=== PATIENT | male | born 1955 | race Hispanic/Latino ===

== ENCOUNTER 2018-06-16 18:45 | Inpatient (IN) | payer MEDICARE ==
[2018-06-16] MEDS ORDERED: Sodium Chloride 0.9% 1,000 ML IV STA ×2 (19:34→23:04)
[2018-06-16] MEDS ORDERED: Morphine 4 MG/ML VIAL IVP STA (19:36)
[2018-06-16] MEDS ORDERED: Morphine 4 MG/ML VIAL ONE (19:44)
--- NOTE | 2018-06-16 20:08 | ED PDOC ---
HPI: Abdomen Time Seen by Provider: 06/16/18 18:58 Chief Complaint (Nursing): Abdominal Pain Chief Complaint (Provider): Abdominal Pain History Per: Patient History/Exam Limitations: no limitations Onset/Duration Of Symptoms: Days Current Symptoms Are (Timing): Still Present Additional Complaint(s): 63 y/o male with a PMHx of a CVA, CAD with CABG, HTN, Hypercholesterolemia and Prostrate Cancer presents to the ED for evaluation of abdominal pain s/p prostrate resection 8 days ago. Patient was discharged from [facility] three days ago and has since been unable to tolerate food or fluid by the mouth. Patient states he is unable to take his medications because they come up when he vomits. Patient does report of having very liquid bowel movements. Otherwise, patient denies hematemesis, bilious vomiting as well as bloody or black stools. Patient reports abdominal pain is diffuse and associated with subjective chills. Patient denies fever. Patient additionally reports that urine appears orange in color with no gross blood. Patient notes of having a coronel catheter in place. History partially obtained from his friend due to patient's chronic aphasia secondary to stroke. PMD: Valdez Espinosa Past Medical History Reviewed: Historical Data, Nursing Documentation, Vital Signs Vital Signs: Last Vital Signs Temp 98.2 F 06/16/18 18:54 Pulse 127 H 06/16/18 18:54 Resp BP 147/91 H 06/16/18 18:54 Pulse Ox 95 06/16/18 18:54 - Medical History PMH: Benign Prostatic Hyperplasia, HTN, Hypercholesterolemia, Kidney Stones, Chronic Kidney Disease - Surgical History Surgical History: CABG - Family History Family History: States: No Known Family Hx - Home Medications Home Medications: Ambulatory Orders Medication Instructions Recorded Alfuzosin HCl [Alfuzosin HCl ER] 10 mg PO DAILY 06/16/18 Aspirin [Adult Low Dose Aspirin EC] 81 mg PO DAILY 06/16/18 Atorvastatin [Lipitor] 40 mg PO DAILY 06/16/18 Cholecalciferol [Vitamin D 1000 IU] 1,000 mg PO DAILY 06/16/18 Docusate Sodium [Loo' 100 mg PO DAILY 06/16/18 Laxative] Enalapril Maleate [Vasotec] 2.5 mg PO BID 06/16/18 Famotidine [Pepcid] 20 mg PO BID 06/16/18 Folic Acid 1 mg PO DAILY 06/16/18 Ibuprofen [Motrin Tab] 800 mg PO Q8 PRN 06/16/18 Oxybutynin [Ditropan Tab] 5 mg PO TID 06/16/18 Oxycodone HCl/Acetaminophen 1 tab PO Q6 PRN 06/16/18 [Endocet 10-325 mg Tablet] Sulfamethoxazole/Trimethoprim 1 tab PO Q12 06/16/18 [Sulfamethoxazole-Tmp Ss Tablet] Tamsulosin [Flomax] 0.4 mg PO DAILY 06/16/18 levETIRAcetam [Keppra] 500 mg PO BID 06/16/18 - Allergies Allergies/Adverse Reactions: Allergies Allergy/AdvReac Type Severity Reaction Status Date / Time No Known Allergies Allergy Verified 11/23/17 23:09 Review of Systems ROS Statement: Except As Marked, All Systems Reviewed And Found Negative (as per HPI) Constitutional: Positive for: Chills. Negative for: Fever Gastrointestinal: Positive for: Vomiting, Abdominal Pain, Diarrhea (very liquid bowel movements), Other (decreased PO intake). Negative for: Melena, Hematochezia, Hematemesis Genitourinary Male: Positive for: Other (orange coloroed urine ). Negative for: Hematuria Physical Exam - Reviewed Nursing Documentation Reviewed: Yes Vital Signs Reviewed: Yes - Physical Exam Appears: Positive for: In Acute Distress (in mild painful distress) Head Exam: Positive for: ATRAUMATIC, NORMOCEPHALIC Skin: Positive for: Warm, Dry Eye Exam: Positive for: EOMI, PERRL ENT: Positive for: Other (dry mucous membrane) Neck: Positive for: Painless ROM, Supple Cardiovascular/Chest: Positive for: Tachycardia (with regular rhythm) Respiratory: Positive for: Normal Breath Sounds. Negative for: Respiratory Distress Gastrointestinal/Abdominal: Positive for: Soft, Tenderness (nonlocalized diffuse pain), Mass, Other (surgical wounds to abdomen are intact with no erythema, no purulent discharge or signs of infection. Dressing in place in the LLQ where according to the patient there was a drain that had been removed. ) Back: Positive for: Normal Inspection. Negative for: Muscle Spasm Extremity: Positive for: Normal ROM. Negative for: Deformity Lymphatic: Negative for: Adenopathy Neurological/Psych: Positive for: Awake, Alert, Oriented (x3), Other (mild expressive aphasia) - Laboratory Results Result Diagrams: 06/18/18 04:35 06/18/18 04:35 - ECG O2 Sat by Pulse Oximetry: 95 (RA) Pulse Ox Interpretation: Normal Medical Decision Making Medical Decision Making: Time: 1933 Impression: Abdominal pain post-op prostrate resection Differentials include but not limited to obstruction, interabdominal abscess, gastroenteritis, dehydration, electrolyte abnormality and sepsis Plan: -- Type and Screen -- VBG -- CT Abd/Pelvis IV Contrast ONLY -- EKG -- CMP -- Lipase -- CBC with Differentials -- PTT -- Prothrombin Time -- Morphine 4 mg IVP -- Sodium Chloride IV 1000 mls/hr -- Zofran Inj 4 mg IVP -- Blood Culture -- Urine Culture -- IV Insertion -- Urinalysis Name: NIKOLAS ARIAS Exam Date: Jun 16, 2018 9:37:02 PM EDT Modality Type: CT\ Description: CT - ABDOMEN AND PELVIS Gender: M Laterality: Not applicable : 53 Referring Physician: Emergency Room direct number CT of the abdomen and pelvis with contrast Clinical statement: vomiting. Technique: Multiple axial CT images were obtained from the base of the lungs through the floor of the pelvis utilizing 5 mm axial slices after administration of nonionic intravenous contrast. Coronal and sagittal reconstructions were also obtained. Comparison: None. Findings: Chest: There is a suspected filling defect within the right main pulmonary artery extending into the right lower lobe sentimental pulmonary arteries. There is a small right-sided pleural effusion. There are infiltrates noted in the lower lungs bilaterally. Abdomen: The spleen, pancreas, kidneys, and adrenal glands are unremarkable. There are left parapelvic renal cysts. Innumerable small low attenuation lesions are seen throughout the liver, too small to characterize but likely represent small cysts. Several gallstones are seen within a distended gallbladder. There is gallbladder wall thickening measuring up to 5 mm. Trace pericholecystic free fluid is noted. There is no evidence of biliary ductal dilatation. The aorta is within normal limits. There is no evidence of abdominal lymphadenopathy. There is a small amount of ascites around the spleen. Pelvis: The bowel is unremarkable, with no obstructive or inflammatory changes. The appendix is normal. The urinary bladder is catheterized and contracted. The other pelvic structures appear grossly intact. There is no evidence of pelvic lymphadenopathy or ascites. Bones: There are no suspicious osseous abnormalities seen. Impression: 1. Cholelithiasis with suspected gallbladder wall thickening and trace pericholecystic free fluid. No evidence of biliary ductal dilatation. The findings could represent early acute cholecystitis. Ultrasound would be recommended for further evaluation. 2. Filling defect within the right main pulmonary, extending into the segmental branches of the right lower lobe. This study is not ideal for evaluation of the pulmonary arteries, but pulmonary embolism cannot be excluded. If there is further clinical concern, CT angiogram of the chest would be recommended for further evaluation. 3. Small right-sided pleural effusion. Bilateral lower lobe infiltrates. 4. Numerous low attenuation lesions of the liver, likely representing cysts. 5. Left renal parapelvic cysts. 6. Small amount of ascites in the upper abdomen. 7. No obstructive or inflammatory bowel changes. Electronically signed on Jun 16, 2018 11:16:01 PM EDT by: Quinn Jara M.D., JONE Certified By [facility] Fellowship Trained MRI and CT Specialist DW Dr Isidro Hospitalist, admitting for pt's PMD Dr Espinosa Pt to be hospitalized to his service. Discussed need for imaging to evaluate for pulmonary embolism. Unfortunately pt already received iodine load and will need to clear current IV load prior to CT angio. Pt will be treated with anticoagulants and place on telemetry. At this time patient is no hypoxic or in respiratory distress. Further management endorsed to Dr Isidro. Scribe Attestation: Documented by Virgilio Mathews, acting as a scribe Ileana Mansfield MD. Provider Scribe Attestation: All medical record entries made by the Scribe were at my direction and p ersonally dictated by me. I have reviewed the chart and agree that the record accurately reflects my personal performance of the history, physical exam, medical decision making, and the department course for this patient. I have also personally directed, reviewed, and agree with the discharge instructions and disposition. Disposition - Clinical Impression Clinical Impression: Small pleural effusion, Abdominal pain, Cholelithiasis - Disposition Disposition Time: 23:00 Condition: GUARDED - Pt Status Changed To: Hospital Disposition Of: Inpatient - Admit Certification Admit to Inpatient:: After my assessment, the patient will require hospitalization for at least two midnights. This is because of the severity of symptoms shown, intensity of services needed, and/or the medical risk in this patient being treated as an outpatient. - POA Present On Arrival: Deep Vein Thrombosis / PE
[2018-06-16 20:14] LABS: BASO # 0.1 K/uL (0.0-0.2); BASO % 0.3 % (0.0-2.0); EOS % 0.2 % (0.0-4.0); HEMOGLOBIN 12.1 g/dL (12.0-18.0); LYMPH # 0.8 K/uL (1.0-4.3); LYMPH % 4.5 % (20.0-40.0); MEAN CELL VOLUME 94.6 fl (80.0-94.0); MEAN CORPUSCULAR HEMOGLOBIN 30.9 pg (27.0-31.0); MEAN CORPUSCULAR HGB CONC 32.7 g/dL (33.0-37.0); MEAN PLATELET VOLUME 10.4 fl (7.2-11.7); MONO # 1.3 K/uL (0.0-0.8); NEUT # 16.2 K/uL (1.8-7.0); NRBC % 0.1 % (0.0-0.0); PLATELET COUNT 204 K/uL (130-400); RBC 3.91 Mil/uL (4.40-5.90); RED CELL DISTRIBUTION WIDTH 13.2 % (11.5-14.5); WHITE BLOOD COUNT 18.4 K/uL (4.8-10.8)
[2018-06-16 20:18] LABS: VENOUS BLOOD GAS BASE EXCESS 2.2 mmol/L (0.0-2.0); VENOUS BLOOD GAS PCO2 33 mmHg (40-60); VENOUS BLOOD GAS PO2 29 mm/Hg (30-55); VENOUS BLOOD PH 7.49 (7.32-7.43)
[2018-06-16 20:24] LABS: ALB/GLOB RATIO 1.1 (1.0-2.1); ALBUMIN 3.5 g/dL (3.5-5.0); ALT/SGPT 194 U/L (21-72); AST/SGOT 184 U/L (17-59); BLOOD UREA NITROGEN 22 mg/dl (9-20); CALCIUM 9.1 mg/dL (8.4-10.2); GFR NON-AFRICAN AMERICAN > 60; LIPASE 125 U/L (23-300)
[2018-06-16 20:31] LABS: INR 1.4; PROTHROMBIN TIME 15.4 Seconds (9.8-13.1)
[2018-06-16] MEDS ORDERED: Ciprofloxacin 400mg/200ml D5W 400 MG/200 ML BAG IV STA (20:31)
[2018-06-16 20:34] LABS: PARTIAL THROMBOPLASTIN TIME 30.8 Seconds (25.6-37.1)
[2018-06-16] MEDS ORDERED: Ciprofloxacin 400mg/200ml D5W 400 MG/200 ML BAG IVPB ONE (20:34)
[2018-06-16] MEDS ORDERED: Iohexol 300 100 ML IJ ONE (20:51)
[2018-06-16 20:52] LABS: URINE AMORPHOUS SEDIMENT RARE /ul (<OCC); URINE BILIRUBIN NEGATIVE (NEGATIVE); URINE BLOOD LARGE (NEGATIVE); URINE CLARITY CLOUDY (Clear); URINE COLOR AMBER (YELLOW); URINE GLUCOSE (UA) NEG (NEGATIVE); URINE LEUKOCYTE ESTERASE MOD Leu/uL (Negative); URINE PROTEIN 100 mg/dL (NEGATIVE); URINE UROBILINOGEN 0.2-1.0 mg/dL (0.2-1.0)
[2018-06-16] MEDS ORDERED: Sodium Chloride 0.9% 50 ML IV ONE (20:52)
[2018-06-16 20:54] LABS: URINE BACTERIA LARGE (<OCC)
[2018-06-16 21:46] LABS: PLATELET ESTIMATE NORMAL (NORMAL)
[2018-06-16 21:47] LABS: LARGE PLATELETS PRESENT
[2018-06-16] MEDS ORDERED: metroNIDAZOLE 500mg/100ml NS 100 ML IV STA (23:21)
--- NOTE | 2018-06-16 23:39 | CP.PCM.HP ---
<Sultan Saeed - Last Filed: 06/17/18 02:00> History of Present Illness - History of Present Illness History of Present Illness: History obtained from patient and review of patients medical record 63 year old Male with PMHx prostate CA s/p prostate resection on 06/06/18 at [facility], CVA with residual expressive aphasia, CAD with CABG, HTN and HLD presents to [facility] ED for evaluation of nausea, vomiting and diffuse abdominal pain since discharge from hospital on 06/10/18. Patient reports he has poor po intake including unable to take medications due to nausea and vomiting. Does report lose BM but denies any watery diarrhea. Patient has a coronel in place since the surgery and was supposed to follow up with urologist on 06/15/13, however did not follow up. Does report chills but denies any fever, hematuria or strong odor. Patient reports being short of breath but denies any cough, chest pain, calf pain or calf swelling. In the ED, patient is tachycardic, afebrile and leukocytosis. CT A/P shows possible cholecystitis, filling defect within the right main pulmonary artery, small right sided pleural effusion and B/L lower lobe infiltrates. RUQ US shows cholelithiasis and acalculus cholecystitis. Patient is admitted for sepsis likely secondary for acute complicated UTI and/or acute cholecystitis, and possible pulmonary embolism. ROS: All 12 systems reviewed and negative except as mentioned above PMHx: CAD s/p CABG, HTN, prostate CA, CVA about 14 yrs ago with residual expressive aphasia, HLD Surgery hx: CABG, Prostate resection Family hx: Father: CAD Social hx: former smoker (20+ packed years smoker), quit 16 years ago. Denies drugs uses. Lives alone and completely independent. Allergies: NKDA Medications: reviewed PMD: Dr. Espinosa Urologist: Dr. Salazar at [facility] ([phone]) Summer Intern: Dr. Vieira ([phone]) Present on Admission - Present on Admission Any Indicators Present on Admission: Yes Urinary Catheter: Yes Review of Systems - Review of Systems All systems: reviewed and no additional remarkable complaints except (except as mentioned in HPI) Past Patient History - Past Social History Smoking Status: Former Smoker - CARDIAC Hx Hypercholesterolemia: Yes Hx Hypertension: Yes - NEUROLOGICAL HX Cerebrovascular Accident: Yes - RENAL Hx Chronic Kidney Disease: Yes Hx Kidney Stones: Yes - GASTROINTESTINAL Hx Gastrointestinal Disorders: Yes Hx Hemorrhoids: Yes - GENITOURINARY/GYNECOLOGICAL Hx Genitourinary Disorders: Yes Hx Prostate Cancer: Yes Hx Prostate Problems: Yes (enlarged prostate) - PSYCHIATRIC Hx Substance Use: No - SURGICAL HISTORY Hx Coronary Artery Bypass Graft: Yes - ANESTHESIA Hx Anesthesia: Yes Hx Anesthesia Reactions: No Meds Allergies/Adverse Reactions: Allergies Allergy/AdvReac Type Severity Reaction Status Date / Time No Known Allergies Allergy Verified 11/23/17 23:09 Physical Exam - Constitutional Appears: Non-toxic, No Acute Distress, Other (gets frustrated at times due to expressive aphasia) - Head Exam Head Exam: NORMAL INSPECTION - Eye Exam Eye Exam: EOMI, Normal appearance, PERRL - Neck Exam Neck exam: Negative for: Meningismus - Respiratory Exam Respiratory Exam: Decreased Breath Sounds (on right lower lung field with +rales;), NORMAL BREATHING PATTERN. absent: Accessory Muscle Use, Wheezes Additional comments: Clear left sided lung field - Cardiovascular Exam Cardiovascular Exam: Tachycardia, REGULAR RHYTHM, +S1, +S2 Additional comments: Mid chest old scar from CABG x2 - GI/Abdominal Exam GI & Abdominal Exam: Distended, Soft, Tenderness (mild diffuse tenderness;). absent: Guarding, Rebound Additional comments: Multiple surgical scars with mild erythema and healing well. No signs of infection. - Exam Additional comments: Coronel catheter in place draining yellow colored urine. - Extremities Exam Extremities exam: Positive for: normal inspection, pedal pulses present. Negative for: calf tenderness, pedal edema Additional comments: No lower extremities swelling. tenderness or erythema. No thigh swelling,erythema or tenderness. - Back Exam Back exam: absent: CVA tenderness (L), CVA tenderness (R) - Neurological Exam Neurological exam: Alert, Oriented x3 Additional comments: expressive aphasia - Psychiatric Exam Additional comments: frustrated at times - Skin Skin Exam: Normal Color Results - Vital Signs Recent Vital Signs: Last Vital Signs Temp 98.2 F 06/16/18 18:54 Pulse 127 H 06/16/18 18:54 Resp BP 147/91 H 06/16/18 18:54 Pulse Ox 95 06/16/18 23:21 - Labs Result Diagrams: 06/16/18 19:57 06/16/18 19:57 Labs: Laboratory Results - last 24 hr 06/16/18 06/16/18 06/16/18 19:57 19:57 19:57 WBC 18.4 H RBC 3.91 L Hgb 12.1 D Hct 37.0 MCV 94.6 H MCH 30.9 MCHC 32.7 L RDW 13.2 Plt Count 204 MPV 10.4 Neut % (Auto) 88.0 H Lymph % (Auto) 4.5 L Sibley % (Auto) 7.0 Eos % (Auto) 0.2 Baso % (Auto) 0.3 Neut # (Auto) 16.2 H Lymph # (Auto) 0.8 L Sibley # (Auto) 1.3 H Eos # (Auto) 0.0 Baso # (Auto) 0.1 Platelet Estimate Normal Large Platelets Present PT 15.4 H INR 1.4 APTT 30.8 pO2 VBG pH VBG pCO2 VBG HCO3 VBG Total CO2 VBG O2 Sat (Calc) VBG Base Excess VBG Potassium Glucose Lactate FiO2 Sodium 144 Potassium 4.3 Chloride 107 Carbon Dioxide 25 Anion Gap 16 BUN 22 H Creatinine 0.8 Est GFR ( Amer) > 60 Est GFR (Non-Af Amer) > 60 Random Glucose 129 H Calcium 9.1 Total Bilirubin 1.8 H AST 184 H D ALT 194 H D Alkaline Phosphatase 97 Total Protein 6.6 Albumin 3.5 Globulin 3.1 Albumin/Globulin Ratio 1.1 Lipase 125 Venous Blood Potassium Urine Color Urine Clarity Urine pH Ur Specific Chauncey Urine Protein Urine Glucose (UA) Urine Ketones Urine Blood Urine Nitrate Urine Bilirubin Urine Urobilinogen Ur Leukocyte Esterase Urine RBC (Auto) Urine Microscopic WBC Amorphous Sediment Urine Bacteria Blood Type Antibody Screen BBK History Checked 06/16/18 06/16/18 06/16/18 19:57 19:57 20:09 WBC RBC Hgb Hct MCV MCH MCHC RDW Plt Count MPV Neut % (Auto) Lymph % (Auto) Sibley % (Auto) Eos % (Auto) Baso % (Auto) Neut # (Auto) Lymph # (Auto) Sibley # (Auto) Eos # (Auto) Baso # (Auto) Platelet Estimate Large Platelets PT INR APTT pO2 29 L VBG pH 7.49 H VBG pCO2 33 L VBG HCO3 25.7 VBG Total CO2 26.1 VBG O2 Sat (Calc) 58.6 VBG Base Excess 2.2 H VBG Potassium 4.4 Glucose 131 H Lactate 1.7 FiO2 21.0 Sodium 142.0 Potassium Chloride 108.0 H Carbon Dioxide Anion Gap BUN Creatinine Est GFR ( Amer) Est GFR (Non-Af Amer) Random Glucose Calcium Total Bilirubin AST ALT Alkaline Phosphatase Total Protein Albumin Globulin Albumin/Globulin Ratio Lipase Venous Blood Potassium 4.4 Urine Color Ronna Urine Clarity Cloudy Urine pH 7.0 Ur Specific Chauncey 1.024 Urine Protein 100 Urine Glucose (UA) Neg Urine Ketones Trace Urine Blood Large Urine Nitrate Negative Urine Bilirubin Negative Urine Urobilinogen 0.2-1.0 Ur Leukocyte Esterase Mod Urine RBC (Auto) 250 H Urine Microscopic WBC 42 H Amorphous Sediment Rare H Urine Bacteria Large Blood Type A POSITIVE Antibody Screen Negative BBK History Checked Patient has bt Assessment & Plan - Assessment and Plan (Free Text) Assessment: 63 year old Male with PMHx prostate CA s/p prostate resection 8 days at [facility], CVA with residual expressive aphasia, CAD with CABG, HTN and HLD presents to [facility] ED for evaluation of nausea, vomiting, diarrhea and diffuse abdominal pain x 3 days. Patient was discharged from [facility] 3 days ago and states since then he has poor po intake due to nausea and vomiting. . In the ED, patient is tachycardic, afebrile and leukocytosis. CT A/P shows possible cholecystitis, filling defect within the right main pulmonary artery, small right sided pleural effusion and B/L lower lobe infiltrates. Patient is admitted for sepsis likely secondary for acute complicated UTI and/or acute cholecystitis, and possible pulmonary embolism. Plan: Sepsis likely secondary to acute complicated UTI and/or acute acalculus cholecystitis -Initial VS in ED: BP 147/91, HR 127, RR 20, pulse ox 95% -Afebrile, tachycardic -Leukocytosis with wbc of 18.4, LA 1.7 on VBG -UA shows moderate LE, large blood, large bacteria -hx prostate resection on 06/06/18 -s/p 1.5 L NS bolus -s/p Cipro and Flagyl in ED -Start Zosyn 3.375 gm q 6hs -Urology consult: patient has coronel in place; f/u recs regarding removal of coronel. -f/u AM labs, blood cx and urine cx Abdominal pain, Nausea and Vomiting likely secondary to acute acalculus cholecystitis -CT A/P shows likely cholecystitis -RUQ US shows cholelithiasis and acalculus cholecystitis -NPO -IVFs: LR @150 cc/ hr -Pain meds: Morphine prn -Antiemetics with Zofran 4 mg IVPB PRN -General surgery consult: f/u recs -f/u AM labs Pleural effusion and Filling defect within the right main pulmonary artery in CT A/P -Tachycardic, pulse ox >95% with 2 L NC -CTA with PE protocol in the morning (patient had IV contrasted CT A/P earlier, will hydrate for few hours and get Chest CT) -Patient to be started on heparin drip for PE tx pending surgery recommendation HTN and CAD S/P CABG -stable BP -hold HTN medications for now CVA with residual expressive aphasia -Hold aspirin and atorvastatin due to NPO DVT prophylaxis -to be started on heparin drip pending surgery recs Code Status -Full code Patient seen, examined and plan discussed with Dr. Isidro <Valente Isidro - Last Filed: 06/17/18 03:18> Results - Vital Signs Recent Vital Signs: Last Vital Signs Temp 98.2 F 06/17/18 00:35 Pulse 111 H 06/17/18 00:35 Resp 20 06/17/18 00:35 BP 129/84 06/17/18 00:35 Pulse Ox 96 06/17/18 00:35 - Labs Result Diagrams: 06/16/18 19:57 06/16/18 19:57 Labs: Laboratory Results - last 24 hr 06/16/18 06/16/18 06/16/18 19:57 19:57 19:57 WBC 18.4 H RBC 3.91 L Hgb 12.1 D Hct 37.0 MCV 94.6 H MCH 30.9 MCHC 32.7 L RDW 13.2 Plt Count 204 MPV 10.4 Neut % (Auto) 88.0 H Lymph % (Auto) 4.5 L Sibley % (Auto) 7.0 Eos % (Auto) 0.2 Baso % (Auto) 0.3 Neut # (Auto) 16.2 H Lymph # (Auto) 0.8 L Sibley # (Auto) 1.3 H Eos # (Auto) 0.0 Baso # (Auto) 0.1 Neutrophils % (Manual) 90 H Lymphocytes % (Manual) 5 L Monocytes % (Manual) 5 Platelet Estimate Normal Large Platelets Present PT 15.4 H INR 1.4 APTT 30.8 pO2 VBG pH VBG pCO2 VBG HCO3 VBG Total CO2 VBG O2 Sat (Calc) VBG Base Excess VBG Potassium Glucose Lactate FiO2 Sodium 144 Potassium 4.3 Chloride 107 Carbon Dioxide 25 Anion Gap 16 BUN 22 H Creatinine 0.8 Est GFR ( Amer) > 60 Est GFR (Non-Af Amer) > 60 Random Glucose 129 H Calcium 9.1 Total Bilirubin 1.8 H AST 184 H D ALT 194 H D Alkaline Phosphatase 97 Total Protein 6.6 Albumin 3.5 Globulin 3.1 Albumin/Globulin Ratio 1.1 Lipase 125 Venous Blood Potassium Urine Color Urine Clarity Urine pH Ur Specific Chauncey Urine Protein Urine Glucose (UA) Urine Ketones Urine Blood Urine Nitrate Urine Bilirubin Urine Urobilinogen Ur Leukocyte Esterase Urine RBC (Auto) Urine Microscopic WBC Amorphous Sediment Urine Bacteria Blood Type Antibody Screen BBK History Checked 06/16/18 06/16/18 06/16/18 19:57 19:57 20:09 WBC RBC Hgb Hct MCV MCH MCHC RDW Plt Count MPV Neut % (Auto) Lymph % (Auto) Sibley % (Auto) Eos % (Auto) Baso % (Auto) Neut # (Auto) Lymph # (Auto) Sibley # (Auto) Eos # (Auto) Baso # (Auto) Neutrophils % (Manual) Lymphocytes % (Manual) Monocytes % (Manual) Platelet Estimate Large Platelets PT INR APTT pO2 29 L VBG pH 7.49 H VBG pCO2 33 L VBG HCO3 25.7 VBG Total CO2 26.1 VBG O2 Sat (Calc) 58.6 VBG Base Excess 2.2 H VBG Potassium 4.4 Glucose 131 H Lactate 1.7 FiO2 21.0 Sodium 142.0 Potassium Chloride 108.0 H Carbon Dioxide Anion Gap BUN Creatinine Est GFR ( Amer) Est GFR (Non-Af Amer) Random Glucose Calcium Total Bilirubin AST ALT Alkaline Phosphatase Total Protein Albumin Globulin Albumin/Globulin Ratio Lipase Venous Blood Potassium 4.4 Urine Color Ronna Urine Clarity Cloudy Urine pH 7.0 Ur Specific Chauncey 1.024 Urine Protein 100 Urine Glucose (UA) Neg Urine Ketones Trace Urine Blood Large Urine Nitrate Negative Urine Bilirubin Negative Urine Urobilinogen 0.2-1.0 Ur Leukocyte Esterase Mod Urine RBC (Auto) 250 H Urine Microscopic WBC 42 H Amorphous Sediment Rare H Urine Bacteria Large Blood Type A POSITIVE Antibody Screen Negative BBK History Checked Patient has bt Attending/Attestation - Attestation I have personally seen and examined this patient.: Yes I have fully participated in the care of the patient.: Yes I have reviewed all pertinent clinical information: Yes Notes (Text): 06/17/18 02:41 I saw, examined and discussed this patient with Dr Tipton. I agree with the assessment and plan outlined. This is a 63 years old male with hx ofCAD s/p CAGB, CVA 2008 with residual Motor Aphasia, and Prostate Cancer s/p Prostate resection on 06/06/18, Indwelling coronel and discharged 06/10/18. He comes with intractable vomiting with abdominal pain generalized but most intense at the RUQ. CT and US of abdomen showed Acalculus Cholecystitis with Cholelithiasis.. This is the main cause of the abdominal pain and intractable vomiting. The contrasted Abdominal CT also showed Right Main pulmonary artery Pulmonary Embolism. This patient has sepsis with the leukocytosis, tachycardia along with UTI and the Cholecystitis. We will consult surgery for the Acalculus Cholecystitis, The patient will be placed nothing by mouth, Pain management, IV Antibiotics fluids and antiemetics. Forn the Pulmonary Embolism, we will do the CTA pulmonary embolism Protocol after the patient is rehydrated. Anticoagulant with Heparin will be started for the PE. IV Fluids for the dehydration. Consult Urology for the recent Prostate resection and direction on coronel removal. Keppra will be continued as prophylaxis of seizures because of the CVA. Valente Isidro MD
[2018-06-17 00:14] LABS: LYMPHOCYTE 5 % (20-50); MONOCYTE 5 % (0-10); NEUTROPHIL 90 % (42-75)
[2018-06-17 00:19] LABS: TOTAL CELLS COUNTED 100
[2018-06-17] MEDS ORDERED: metroNIDAZOLE 500mg/100ml NS 100 ML IVPB ONE (00:50)
[2018-06-17] MEDS ORDERED: Morphine 4 MG/ML VIAL IVP PRN (01:15)
[2018-06-17] MEDS: Lactated Ringer's 1,000 ML IV SCH ×4 (03:03→21:41)
[2018-06-17] MEDS: levETIRAcetam 500 MG in Sodium Chloride 0.9% 100 ML IVPB SCH ×2 (03:04→21:38)
--- NOTE | 2018-06-17 03:31 | CP.PCM.CON ---
History of Present Illness - History of Present Illness History of Present Illness: General Surgery consult: Dr. Robledo Patient is a 63 yr old male with PMH who presents to [facility] s/p prostate resection POD 10 at [facility] with persistent N/V,diarrhea and abdominal pain. Patient denies pain being located in the RUQ and describes it as " all over". Pt is unsure if associated with eating as he has been vomiting every time he eats. Endorses mild SOB. He otherwise denies JENNINGS, Chest pain, dysuria and extremity pain/weakness 12 point ROS otherwise negative PMHx: CAD s/p CABG, HTN, prostate CA, CVA (residual expressive aphasia), HLD Surgery hx: CABG, Prostate resection (POD 10) Family hx: Father: CAD Social hx: former smoker (20+ packed years smoker), quit 16 years ago.denies ETOH and tobacco use Allergies: NKDA Medications: reviewed PMD: Dr. Espinosa Urologist: Dr. Salazar at [facility] ([phone]) Design Technology Professor: Dr. Vieira ([phone]) Review of Systems - Review of Systems All systems: reviewed and no additional remarkable complaints except (as per HPI) Past Patient History - Past Social History Smoking Status: Former Smoker - CARDIAC Hx Hypercholesterolemia: Yes Hx Hypertension: Yes - NEUROLOGICAL HX Cerebrovascular Accident: Yes - RENAL Hx Chronic Kidney Disease: Yes Hx Kidney Stones: Yes - GASTROINTESTINAL Hx Gastrointestinal Disorders: Yes Hx Hemorrhoids: Yes - GENITOURINARY/GYNECOLOGICAL Hx Genitourinary Disorders: Yes Hx Prostate Cancer: Yes Hx Prostate Problems: Yes (enlarged prostate) - PSYCHIATRIC Hx Substance Use: No - SURGICAL HISTORY Hx Coronary Artery Bypass Graft: Yes - ANESTHESIA Hx Anesthesia: Yes Hx Anesthesia Reactions: No Meds Allergies/Adverse Reactions: Allergies Allergy/AdvReac Type Severity Reaction Status Date / Time No Known Allergies Allergy Verified 11/23/17 23:09 - Medications Medications: Current Medications Enalaprilat (Vasotec) 2.5 mg IVP Q12 [facility] Famotidine (Pepcid) 20 mg IVP Q12 [facility] Dextrose/Sodium Chloride (Dextrose 5%-0.9% Ns 500 Ml) 1,000 mls @ 100 mls/hr IV .Q10H [facility] Lactated Ringer's (Lactated Ringer's) 1,000 mls @ 150 mls/hr IV .Q6H40M [facility] Last Admin: 06/17/18 03:03 Dose: 150 mls/hr Levetiracetam 500 mg/ Sodium (Chloride) 105 mls @ 210 mls/hr IVPB Q12 [facility] Last Admin: 06/17/18 03:04 Dose: 210 mls/hr Piperacillin Sod/Tazobactam (Sod 3.375 gm/ Sodium Chloride) 100 mls @ 100 mls/hr IVPB Q6 [facility]; Protocol Morphine Sulfate (Morphine) 2 mg IVP Q6 PRN PRN Reason: Pain, moderate (4-7) Last Admin: 06/17/18 03:06 Dose: 2 mg Morphine Sulfate (Morphine) 4 mg IVP Q6 PRN PRN Reason: Pain, severe (8-10) Ondansetron HCl (Zofran Inj) 4 mg IVP Q6 PRN PRN Reason: Nausea/Vomiting Last Admin: 06/17/18 03:08 Dose: 4 mg Physical Exam - Constitutional Appears: Non-toxic, No Acute Distress, Chronically Ill - Head Exam Head Exam: ATRAUMATIC, NORMOCEPHALIC - Eye Exam Eye Exam: EOMI - ENT Exam ENT Exam: Mucous Membranes Moist - Respiratory Exam Respiratory Exam: Decreased Breath Sounds (RIght lower lung field). absent: Respiratory Distress - Cardiovascular Exam Cardiovascular Exam: REGULAR RHYTHM - GI/Abdominal Exam GI & Abdominal Exam: Distended, Soft, Tenderness (diffuse, over incision sites). absent: Guarding Additional comments: incisions cdi no erythema/ drainage, negative dexter's sign - Extremities Exam Extremities exam: Negative for: calf tenderness, pedal edema - Neurological Exam Neurological exam: Alert, Oriented x3 - Psychiatric Exam Psychiatric exam: Normal Affect, Normal Mood - Skin Skin Exam: Dry, Intact, Normal Color, Warm Additional comments: incisions CDI Results - Vital Signs Recent Vital Signs: Last Vital Signs Temp 99.2 F 06/17/18 02:45 Pulse 105 H 06/17/18 02:45 Resp 18 06/17/18 02:45 BP 125/81 06/17/18 02:45 Pulse Ox 94 L 06/17/18 02:45 - Labs Result Diagrams: 06/16/18 19:57 06/16/18 19:57 Labs: Laboratory Results - last 24 hr 06/16/18 06/16/18 06/16/18 19:57 19:57 19:57 WBC 18.4 H RBC 3.91 L Hgb 12.1 D Hct 37.0 MCV 94.6 H MCH 30.9 MCHC 32.7 L RDW 13.2 Plt Count 204 MPV 10.4 Neut % (Auto) 88.0 H Lymph % (Auto) 4.5 L Dubois % (Auto) 7.0 Eos % (Auto) 0.2 Baso % (Auto) 0.3 Neut # (Auto) 16.2 H Lymph # (Auto) 0.8 L Dubois # (Auto) 1.3 H Eos # (Auto) 0.0 Baso # (Auto) 0.1 Neutrophils % (Manual) 90 H Lymphocytes % (Manual) 5 L Monocytes % (Manual) 5 Platelet Estimate Normal Large Platelets Present PT 15.4 H INR 1.4 APTT 30.8 pO2 VBG pH VBG pCO2 VBG HCO3 VBG Total CO2 VBG O2 Sat (Calc) VBG Base Excess VBG Potassium Glucose Lactate FiO2 Sodium 144 Potassium 4.3 Chloride 107 Carbon Dioxide 25 Anion Gap 16 BUN 22 H Creatinine 0.8 Est GFR ( Amer) > 60 Est GFR (Non-Af Amer) > 60 Random Glucose 129 H Calcium 9.1 Total Bilirubin 1.8 H AST 184 H D ALT 194 H D Alkaline Phosphatase 97 Total Protein 6.6 Albumin 3.5 Globulin 3.1 Albumin/Globulin Ratio 1.1 Lipase 125 Venous Blood Potassium Urine Color Urine Clarity Urine pH Ur Specific [place] Urine Protein Urine Glucose (UA) Urine Ketones Urine Blood Urine Nitrate Urine Bilirubin Urine Urobilinogen Ur Leukocyte Esterase Urine RBC (Auto) Urine Microscopic WBC Amorphous Sediment Urine Bacteria Blood Type Antibody Screen BBK History Checked 06/16/18 06/16/18 06/16/18 19:57 19:57 20:09 WBC RBC Hgb Hct MCV MCH MCHC RDW Plt Count MPV Neut % (Auto) Lymph % (Auto) Dubois % (Auto) Eos % (Auto) Baso % (Auto) Neut # (Auto) Lymph # (Auto) Dubois # (Auto) Eos # (Auto) Baso # (Auto) Neutrophils % (Manual) Lymphocytes % (Manual) Monocytes % (Manual) Platelet Estimate Large Platelets PT INR APTT pO2 29 L VBG pH 7.49 H VBG pCO2 33 L VBG HCO3 25.7 VBG Total CO2 26.1 VBG O2 Sat (Calc) 58.6 VBG Base Excess 2.2 H VBG Potassium 4.4 Glucose 131 H Lactate 1.7 FiO2 21.0 Sodium 142.0 Potassium Chloride 108.0 H Carbon Dioxide Anion Gap BUN Creatinine Est GFR ( Amer) Est GFR (Non-Af Amer) Random Glucose Calcium Total Bilirubin AST ALT Alkaline Phosphatase Total Protein Albumin Globulin Albumin/Globulin Ratio Lipase Venous Blood Potassium 4.4 Urine Color Ronna Urine Clarity Cloudy Urine pH 7.0 Ur Specific [place] 1.024 Urine Protein 100 Urine Glucose (UA) Neg Urine Ketones Trace Urine Blood Large Urine Nitrate Negative Urine Bilirubin Negative Urine Urobilinogen 0.2-1.0 Ur Leukocyte Esterase Mod Urine RBC (Auto) 250 H Urine Microscopic WBC 42 H Amorphous Sediment Rare H Urine Bacteria Large Blood Type A POSITIVE Antibody Screen Negative BBK History Checked Patient has bt Assessment & Plan - Assessment and Plan (Free Text) Assessment: 63 yr old male s/p Laparoscopic prostatectomy POD 10 with possible cholecystitis, possible PE Plan: - NPO - IVF - continue abx - further surgical planning pending CTA findings - further recommendations per Dr. Venkat Sanchez, PGY 1
[2018-06-17] MEDS: Piperacillin/Tazobact 3.375 GM in Sodium Chloride 0.9% 100 ML IVPB SCH ×4 (04:42→22:46)
[2018-06-17 06:57] LABS: BASO % 0.2 % (0.0-2.0); EOS % 0.1 % (0.0-4.0); HEMOGLOBIN 10.4 g/dL (12.0-18.0); LYMPH # 0.9 K/uL (1.0-4.3); LYMPH % 5.9 % (20.0-40.0); MEAN CELL VOLUME 95.4 fl (80.0-94.0); MEAN CORPUSCULAR HEMOGLOBIN 31.5 pg (27.0-31.0); MEAN CORPUSCULAR HGB CONC 33.1 g/dL (33.0-37.0); MEAN PLATELET VOLUME 10.6 fl (7.2-11.7); MONO # 1.2 K/uL (0.0-0.8); MONO % 7.6 % (0.0-10.0); NEUT # 13.6 K/uL (1.8-7.0); NEUT % 86.2 % (50.0-75.0); NRBC % 0.1 % (0.0-0.0); RBC 3.29 Mil/uL (4.40-5.90); RED CELL DISTRIBUTION WIDTH 13.4 % (11.5-14.5); WHITE BLOOD COUNT 15.8 K/uL (4.8-10.8)
[2018-06-17 07:02] LABS: ALBUMIN 2.8 g/dL (3.5-5.0); ALT/SGPT 167 U/L (21-72); AST/SGOT 107 U/L (17-59); BLOOD UREA NITROGEN 20 mg/dl (9-20); CALCIUM 8.2 mg/dL (8.4-10.2); GFR NON-AFRICAN AMERICAN > 60
[2018-06-17] MEDS ORDERED: Enalaprilat 2.5 MG/2 ML IVP SCH (09:00)
[2018-06-17] MEDS ORDERED: Iodixanol 320 MG/ML 100 ML BOTTLE IV ONE (09:23)
[2018-06-17] MEDS ORDERED: Sodium Chloride 0.9% 50 ML IV ONE (09:23)
--- NOTE | 2018-06-17 09:29 | CP.PCM.PN ---
Subjective - Date & Time of Evaluation Date of Evaluation: 06/17/18 Time of Evaluation: 08:56 - Subjective Subjective: 63 y/o M 10 days s/p prostate resection at [facility] seen and examined this morning. Patient is saturating at 94% on 2 L of NC. He reports still feeling shortness of breath. He continues to endorse abdominal pain. Pt for CTA this morning and abd MRI w/o contrast with pending surgical and GI evaluation. Objective - Vital Signs/Intake and Output Vital Signs (last 24 hours): Temp Pulse Resp BP Pulse Ox 98.2 F 88 18 119/81 96 06/17/18 07:44 06/17/18 07:44 06/17/18 07:44 06/17/18 07:44 06/17/18 07:44 - Medications Medications: Current Medications Aspirin (Ecotrin) 81 mg PO DAILY [facility] Last Admin: 06/17/18 08:58 Dose: Not Given Atorvastatin Calcium (Lipitor) 40 mg PO DAILY [facility] Last Admin: 06/17/18 08:55 Dose: Not Given Enalapril Maleate (Vasotec) 2.5 mg PO BID [facility] Last Admin: 06/17/18 08:55 Dose: Not Given Famotidine (Pepcid) 20 mg IVP Q12 [facility] Last Admin: 06/17/18 09:18 Dose: 20 mg Famotidine (Pepcid) 20 mg PO BID [facility] Last Admin: 06/17/18 08:55 Dose: Not Given Folic Acid (Folic Acid) 1 mg PO DAILY [facility] Last Admin: 06/17/18 08:59 Dose: Not Given Dextrose/Sodium Chloride (Dextrose 5%-0.9% Ns 500 Ml) 1,000 mls @ 100 mls/hr IV .Q10H [facility] Last Admin: 06/17/18 08:59 Dose: Not Given Lactated Ringer's (Lactated Ringer's) 1,000 mls @ 150 mls/hr IV .Q6H40M [facility] Last Admin: 06/17/18 08:53 Dose: 150 mls/hr Levetiracetam 500 mg/ Sodium (Chloride) 105 mls @ 210 mls/hr IVPB Q12 [facility] Last Admin: 06/17/18 03:04 Dose: 210 mls/hr Piperacillin Sod/Tazobactam (Sod 3.375 gm/ Sodium Chloride) 100 mls @ 100 mls/hr IVPB Q6 [facility]; Protocol Last Admin: 06/17/18 09:06 Dose: 100 mls/hr Morphine Sulfate (Morphine) 2 mg IVP Q6 PRN PRN Reason: Pain, moderate (4-7) Last Admin: 06/17/18 03:06 Dose: 2 mg Morphine Sulfate (Morphine) 4 mg IVP Q6 PRN PRN Reason: Pain, severe (8-10) Ondansetron HCl (Zofran Inj) 4 mg IVP Q6 PRN PRN Reason: Nausea/Vomiting Last Admin: 06/17/18 03:08 Dose: 4 mg Oxybutynin Chloride (Ditropan Tab) 5 mg PO TID [facility] Last Admin: 06/17/18 08:59 Dose: Not Given Tamsulosin HCl (Flomax) 0.4 mg PO DAILY [facility] Last Admin: 06/17/18 08:58 Dose: Not Given - Labs Labs: 06/17/18 05:19 06/17/18 05:19 PT 15.4 Seconds (9.8-13.1) H 06/16/18 19:57 INR 1.4 06/16/18 19:57 APTT 30.8 Seconds (25.6-37.1) 06/16/18 19:57 - Head Exam Head Exam: ATRAUMATIC - Eye Exam Pupil Exam: PERRL - ENT Exam ENT Exam: Mucous Membranes Moist - Respiratory Exam Respiratory Exam: NORMAL BREATHING PATTERN - Cardiovascular Exam Cardiovascular Exam: +S1, +S2 Additional comments: borderline tachycardia - GI/Abdominal Exam GI & Abdominal Exam: Soft, Tenderness, Normal Bowel Sounds Additional comments: laporoscopic incisions noted with diffuse tenderness - Extremities Exam Extremities Exam: absent: Calf Tenderness - Neurological Exam Neurological Exam: Alert, Awake, Oriented x3 Additional comments: expressive aphasia noted - Skin Skin Exam: Dry, Intact Assessment and Plan - Assessment and Plan (Free Text) Assessment: 63 y/o M with PMHx prostate CA s/p prostate resection 10 days at [facility], CVA with residual expressive aphasia, CAD with CABG, HTN and HLD presented to ED for evaluation of n/v/diarrhea & diffuse abdominal pain x 3 days after being discharged from [facility] 3 days ago. Patient found to have cholecysitis with possible PE. Sepsis likely secondary to acute complicated UTI and/or acute acalculus cholecystitis -Initial VS in ED: BP 147/91, HR 127, RR 20, pulse ox 95% -Afebrile, tachycardic -Leukocytosis with wbc of 18.4, LA 1.7 on VBG -UA shows moderate LE, large blood, large bacteria -hx prostate resection on 06/06/18 -s/p 1.5 L NS bolus -s/p Cipro and Flagyl in ED -C/w Zosyn 3.375 gm q 6hs -Urology consult: patient has coronel in place; f/u recs regarding removal of coronel. -WBC trending down; blood cx and urine cx Abdominal pain, Nausea and Vomiting likely secondary to acute acalculus cholecystitis -CT A/P shows likely cholecystitis with cholelithiais and possibe obstruction; awaiting official reports -RUQ US shows cholelithiasis and acalculus cholecystitis -FU MRI abd w/o contrast to r/o obstructive cholelithiasis -NPO -IVFs: LR @150 cc/ hr -Pain meds: Morphine prn -Antiemetics with Zofran 4 mg IVPB PRN -General surgery consult: f/u recs -GI consulted; f/u recs -Total Bili initially: 1.8; AST/ALT: 184/194- trending down today -FU AM labs Pleural effusion and Filling defect within the right main pulmonary artery in CT A/P -Tachycardic, pulse ox >95% with 2 L NC -CTA with PE protocol in the morning (patient had IV contrasted CT A/P earlier, will hydrate for few hours and get Chest CT) -Cont. to monitor VS HTN and CAD S/P CABG -stable BP -hold HTN medications for now CVA with residual expressive aphasia -Restarted aspirin 81mg PO QDand atorvastatin 40mg PO QD hx of prostate CA s/p resection 10 days ago at [facility] -C/w coronel for now -FU recs from Urology BPH -C/w flomax .4mg PO QD -C/w oxybutynin DVT prophylaxis -SCD's for now pending CTA results Code Status -Full code
--- NOTE | 2018-06-17 10:19 | CT ---
Date of service: 06/16/2018 PROCEDURE: CT Abdomen and Pelvis with contrast HISTORY: postop prostate surg intractable vomit r/o obstrxn COMPARISON: CT scan of the abdomen and pelvis dated 11/24/2017 TECHNIQUE: Contrast dose: 95 mL Omnipaque 300 Radiation dose: Total exam DLP = 535.42 mGy-cm. This CT exam was performed using one or more of the following dose reduction techniques: Automated exposure control, adjustment of the mA and/or kV according to patient size, and/or use of iterative reconstruction technique. FINDINGS: LOWER THORAX: Cardiomegaly. Coronary arterial and valvular calcifications. Prior sternotomy. Prior cardiac valve replacement. Patchy bibasilar infiltrates. Trace right pleural effusion. LIVER: Innumerable small hypodensities scattered throughout the liver. GALLBLADDER AND BILE DUCTS: Distended with sludge and calcified gallstones. Gallbladder wall thickening with mild pericholecystic fluid. PANCREAS: Unremarkable. No gross lesion or ductal dilatation. SPLEEN: Unremarkable. ADRENALS: Unremarkable. No mass. KIDNEYS AND URETERS: Multiple left parapelvic cysts. No hydronephrosis. No solid mass. VASCULATURE: Unremarkable. No aortic aneurysm. No aortic atherosclerotic calcification or mural plaque present. BOWEL: Unremarkable. No obstruction. No gross mural thickening. APPENDIX: No findings to suggest acute appendicitis. PERITONEUM: Small amount of fluid in the right pericolic gutter and pelvis, likely postoperative. Small cystic structure measuring 2.9 x 1.5 cm along the right pelvic sidewall, likely representing lymphocele in the setting of recent pelvic surgery. Postsurgical changes along the anterior abdominal wall. No free air. LYMPH NODES: Unremarkable. No enlarged lymph nodes. BLADDER: Collapsed around a Hood catheter. REPRODUCTIVE: Interval prostatectomy BONES: No acute fracture. OTHER FINDINGS: Filling defects within the right main pulmonary artery extending into the subsegmental branches. Filling defects seen within the segmental branches of the left pulmonary artery. Increased RV to LV ratio. IMPRESSION: Extensive bilateral pulmonary emboli with findings suggestive of right heart strain. Interval prostatectomy with small amount of adjacent postsurgical changes. Distended gallbladder with sludge and calcified gallstones as well as mild wall thickening and a trace amount of pericholecystic fluid. Findings are present acute cholecystitis in the appropriate clinical setting. Nuclear medicine hepatobiliary scan can better evaluate patency of the cystic duct. No evidence of bowel obstruction. Patchy bibasilar infiltrates with trace right pleural effusion. Additional stable findings as above.
--- NOTE | 2018-06-17 10:25 | CT ---
Date of service: 06/17/2018 PROCEDURE: CT Chest with contrast (Pulmonary Angiogram) HISTORY: DYSPNEA, filling defect within R pulmonary Artery COMPARISON: None available. TECHNIQUE: Axial computed tomography images were obtained of the chest in the pulmonary arterial phase of enhancement. Coronal and sagittal reformatted images were created and reviewed. Intravenous contrast dose: 100 mL Visipaque 320 Radiation dose: Total exam DLP = 269.82 mGy-cm. This CT exam was performed using one or more of the following dose reduction techniques: Automated exposure control, adjustment of the mA and/or kV according to patient size, and/or use of iterative reconstruction technique. FINDINGS: PULMONARY ARTERIES: Extensive bilateral pulmonary emboli extending from the distal main bilateral pulmonary arteries into nearly all segmental and subsegmental branches. AORTA: No acute findings. Aberrant right subclavian artery. No thoracic aortic aneurysm. No aortic atherosclerotic calcification or mural plaque present. LUNGS: Patchy bibasal infiltrates. PLEURAL SPACES: Trace right pleural effusion. No pneumothorax. HEART: Cardiomegaly. Increased RV to LV ratio. Prior sternotomy. Prior cardiac valve replacement. No significant pericardial effusion. LYMPH NODES: No lymphadenopathy. BONES, CHEST WALL: Unremarkable. No fracture or destructive lesion OTHER FINDINGS: Unremarkable. IMPRESSION: Extensive bilateral pulmonary emboli as above described with CT evidence suggestive of right heart strain. Echocardiography is recommended for further evaluation. Patchy bibasilar infiltrates. Trace right pleural effusion.
--- NOTE | 2018-06-17 11:01 | CP.PCM.CON ---
History of Present Illness - History of Present Illness History of Present Illness: 63 yo male with h/o heavy alcohol use, a bottle of whiskey daily, admitted with dark stools, weakness, and abdominal distention over 2 weeks. Has been vomiting dark brown intestinal contents. Review of Systems - Constitutional Constitutional: absent: Chills - EENT Eyes: absent: Blurred Vision Nose/Mouth/Throat: absent: Epistaxis - Cardiovascular Cardiovascular: absent: Chest Pain - Respiratory Respiratory: absent: Cough - Gastrointestinal Gastrointestinal: As Per HPI - Genitourinary Genitourinary: absent: Change in Urinary Stream Past Patient History - Past Medical History & Family History Past Medical History?: Yes - Past Social History Smoking Status: Former Smoker - CARDIAC Hx Hypercholesterolemia: Yes Hx Hypertension: Yes - PULMONARY Hx Respiratory Disorders: No - NEUROLOGICAL HX Cerebrovascular Accident: Yes - HEENT Hx HEENT Problems: No - RENAL Hx Chronic Kidney Disease: Yes Hx Kidney Stones: Yes - ENDOCRINE/METABOLIC Hx Endocrine Disorders: No - HEMATOLOGICAL/ONCOLOGICAL Hx Blood Disorders: No - INTEGUMENTARY Hx Dermatological Problems: No - MUSCULOSKELETAL/RHEUMATOLOGICAL Hx Musculoskeletal Disorders: No Hx Falls: No - GASTROINTESTINAL Hx Gastrointestinal Disorders: Yes Hx Hemorrhoids: Yes - GENITOURINARY/GYNECOLOGICAL Hx Genitourinary Disorders: Yes Hx Prostate Cancer: Yes Hx Prostate Problems: Yes (enlarged prostate) - PSYCHIATRIC Hx Substance Use: No - SURGICAL HISTORY Hx Coronary Artery Bypass Graft: Yes - ANESTHESIA Hx Anesthesia: Yes Hx Anesthesia Reactions: No Meds Allergies/Adverse Reactions: Allergies Allergy/AdvReac Type Severity Reaction Status Date / Time No Known Allergies Allergy Verified 11/23/17 23:09 - Medications Medications: Current Medications Aspirin (Ecotrin) 81 mg PO DAILY [facility] Last Admin: 06/17/18 08:58 Dose: Not Given Atorvastatin Calcium (Lipitor) 40 mg PO DAILY [facility] Last Admin: 06/17/18 08:55 Dose: Not Given Enalapril Maleate (Vasotec) 2.5 mg PO BID [facility] Last Admin: 06/17/18 08:55 Dose: Not Given Enoxaparin Sodium (Lovenox) 65 mg SC Q12 [facility]; Protocol Famotidine (Pepcid) 20 mg IVP Q12 [facility] Last Admin: 06/17/18 09:18 Dose: 20 mg Famotidine (Pepcid) 20 mg PO BID [facility] Last Admin: 06/17/18 08:55 Dose: Not Given Folic Acid (Folic Acid) 1 mg PO DAILY [facility] Last Admin: 06/17/18 08:59 Dose: Not Given Dextrose/Sodium Chloride (Dextrose 5%-0.9% Ns 500 Ml) 1,000 mls @ 100 mls/hr IV .Q10H [facility] Last Admin: 06/17/18 08:59 Dose: Not Given Lactated Ringer's (Lactated Ringer's) 1,000 mls @ 150 mls/hr IV .Q6H40M [facility] Last Admin: 06/17/18 08:53 Dose: 150 mls/hr Levetiracetam 500 mg/ Sodium (Chloride) 105 mls @ 210 mls/hr IVPB Q12 [facility] Last Admin: 06/17/18 03:04 Dose: 210 mls/hr Piperacillin Sod/Tazobactam (Sod 3.375 gm/ Sodium Chloride) 100 mls @ 100 mls/hr IVPB Q6 [facility]; Protocol Last Admin: 06/17/18 09:06 Dose: 100 mls/hr Morphine Sulfate (Morphine) 2 mg IVP Q6 PRN PRN Reason: Pain, moderate (4-7) Last Admin: 06/17/18 03:06 Dose: 2 mg Morphine Sulfate (Morphine) 4 mg IVP Q6 PRN PRN Reason: Pain, severe (8-10) Ondansetron HCl (Zofran Inj) 4 mg IVP Q6 PRN PRN Reason: Nausea/Vomiting Last Admin: 06/17/18 03:08 Dose: 4 mg Oxybutynin Chloride (Ditropan Tab) 5 mg PO TID [facility] Last Admin: 06/17/18 08:59 Dose: Not Given Tamsulosin HCl (Flomax) 0.4 mg PO DAILY [facility] Last Admin: 06/17/18 08:58 Dose: Not Given Physical Exam - Constitutional Appears: No Acute Distress - Head Exam Head Exam: ATRAUMATIC - Eye Exam Eye Exam: Normal appearance - ENT Exam ENT Exam: Normal Exam - Respiratory Exam Respiratory Exam: Clear to Auscultation Bilateral - Cardiovascular Exam Cardiovascular Exam: REGULAR RHYTHM, +S1, +S2 - GI/Abdominal Exam GI & Abdominal Exam: Distended, Firm Results - Vital Signs Recent Vital Signs: Last Vital Signs Temp 98.2 F 06/17/18 07:44 Pulse 88 06/17/18 07:44 Resp 18 06/17/18 07:44 BP 119/81 06/17/18 07:44 Pulse Ox 96 06/17/18 07:44 - Labs Result Diagrams: 06/17/18 05:19 06/17/18 05:19 Labs: Laboratory Results - last 24 hr 06/16/18 06/16/18 06/16/18 19:57 19:57 19:57 WBC 18.4 H RBC 3.91 L Hgb 12.1 D Hct 37.0 MCV 94.6 H MCH 30.9 MCHC 32.7 L RDW 13.2 Plt Count 204 MPV 10.4 Neut % (Auto) 88.0 H Lymph % (Auto) 4.5 L [place] % (Auto) 7.0 Eos % (Auto) 0.2 Baso % (Auto) 0.3 Neut # (Auto) 16.2 H Lymph # (Auto) 0.8 L [place] # (Auto) 1.3 H Eos # (Auto) 0.0 Baso # (Auto) 0.1 Neutrophils % (Manual) 90 H Lymphocytes % (Manual) 5 L Monocytes % (Manual) 5 Platelet Estimate Normal Large Platelets Present PT 15.4 H INR 1.4 APTT 30.8 pO2 VBG pH VBG pCO2 VBG HCO3 VBG Total CO2 VBG O2 Sat (Calc) VBG Base Excess VBG Potassium Glucose Lactate FiO2 Sodium 144 Potassium 4.3 Chloride 107 Carbon Dioxide 25 Anion Gap 16 BUN 22 H Creatinine 0.8 Est GFR ( Amer) > 60 Est GFR (Non-Af Amer) > 60 Random Glucose 129 H Calcium 9.1 Total Bilirubin 1.8 H AST 184 H D ALT 194 H D Alkaline Phosphatase 97 Total Protein 6.6 Albumin 3.5 Globulin 3.1 Albumin/Globulin Ratio 1.1 Lipase 125 Venous Blood Potassium Urine Color Urine Clarity Urine pH Ur Specific [place] Urine Protein Urine Glucose (UA) Urine Ketones Urine Blood Urine Nitrate Urine Bilirubin Urine Urobilinogen Ur Leukocyte Esterase Urine RBC (Auto) Urine Microscopic WBC Amorphous Sediment Urine Bacteria Blood Type Antibody Screen BBK History Checked 06/16/18 06/16/18 06/16/18 19:57 19:57 20:09 WBC RBC Hgb Hct MCV MCH MCHC RDW Plt Count MPV Neut % (Auto) Lymph % (Auto) [place] % (Auto) Eos % (Auto) Baso % (Auto) Neut # (Auto) Lymph # (Auto) [place] # (Auto) Eos # (Auto) Baso # (Auto) Neutrophils % (Manual) Lymphocytes % (Manual) Monocytes % (Manual) Platelet Estimate Large Platelets PT INR APTT pO2 29 L VBG pH 7.49 H VBG pCO2 33 L VBG HCO3 25.7 VBG Total CO2 26.1 VBG O2 Sat (Calc) 58.6 VBG Base Excess 2.2 H VBG Potassium 4.4 Glucose 131 H Lactate 1.7 FiO2 21.0 Sodium 142.0 Potassium Chloride 108.0 H Carbon Dioxide Anion Gap BUN Creatinine Est GFR ( Amer) Est GFR (Non-Af Amer) Random Glucose Calcium Total Bilirubin AST ALT Alkaline Phosphatase Total Protein Albumin Globulin Albumin/Globulin Ratio Lipase Venous Blood Potassium 4.4 Urine Color [place]onna Urine Clarity Cloudy Urine pH 7.0 Ur Specific [place] 1.024 Urine Protein 100 Urine Glucose (UA) Neg Urine Ketones Trace Urine Blood Large Urine Nitrate Negative Urine Bilirubin Negative Urine Urobilinogen 0.2-1.0 Ur Leukocyte Esterase Mod Urine RBC (Auto) 250 H Urine Microscopic WBC 42 H Amorphous Sediment Rare H Urine Bacteria Large Blood Type A POSITIVE Antibody Screen Negative BBK History Checked Patient has bt 06/17/18 06/17/18 05:19 05:19 WBC 15.8 H RBC 3.29 L Hgb 10.4 L Hct 31.3 L MCV 95.4 H MCH 31.5 H MCHC 33.1 RDW 13.4 Plt Count 158 MPV 10.6 Neut % (Auto) 86.2 H Lymph % (Auto) 5.9 L [place] % (Auto) 7.6 Eos % (Auto) 0.1 Baso % (Auto) 0.2 Neut # (Auto) 13.6 H Lymph # (Auto) 0.9 L [place] # (Auto) 1.2 H Eos # (Auto) 0.0 Baso # (Auto) 0.0 Neutrophils % (Manual) Lymphocytes % (Manual) Monocytes % (Manual) Platelet Estimate Large Platelets PT INR APTT pO2 VBG pH VBG pCO2 VBG HCO3 VBG Total CO2 VBG O2 Sat (Calc) VBG Base Excess VBG Potassium Glucose Lactate FiO2 Sodium 142 Potassium 4.3 Chloride 110 H Carbon Dioxide 24 Anion Gap 12 BUN 20 Creatinine 0.9 Est GFR ( Amer) > 60 Est GFR (Non-Af Amer) > 60 Random Glucose 112 H Calcium 8.2 L Total Bilirubin 1.6 H AST 107 H D ALT 167 H Alkaline Phosphatase 78 Total Protein 5.5 L Albumin 2.8 L Globulin 2.7 Albumin/Globulin Ratio 1.0 Lipase Venous Blood Potassium Urine Color Urine Clarity Urine pH Ur Specific [place] Urine Protein Urine Glucose (UA) Urine Ketones Urine Blood Urine Nitrate Urine Bilirubin Urine Urobilinogen Ur Leukocyte Esterase Urine RBC (Auto) Urine Microscopic WBC Amorphous Sediment Urine Bacteria Blood Type Antibody Screen BBK History Checked - Imaging and Cardiology CT scan - abdomen Status: Image reviewed by me, Report reviewed by me Assessment & Plan (1) Cirrhosis of liver Assessment and Plan: Patient with liver cirrhosis likely from alcohol presenting with weakness, anemia, massive ascites and Elevated renal functions. Patient on Octreotide and reduced dose pantoprazole (due to impaired kidney function). IV pantoprazole not available so will give po instead. On lorazepam for possible Etoh withdrawal. Should have parascentesis Monday. Likely endoscopy on Monday. Status: Acute
[2018-06-17] MEDS: Enoxaparin 80 mg Syringe SC SCH ×2 (11:20→21:37)
--- NOTE | 2018-06-17 11:37 | US ---
Date of service: 06/16/2018 HISTORY: possible cholecystitis COMPARISON: CT scan of the abdomen and pelvis performed earlier the same day TECHNIQUE: Sonographic evaluation of the right upper quadrant of the abdomen. FINDINGS: LIVER: Measures 14.8 cm in length. Normal echogenicity of the liver parenchyma. No mass. No intrahepatic bile duct dilatation. Main portal vein demonstrates normal directional flow. GALLBLADDER: Cholelithiasis with gallbladder wall thickening/edema. Sonographic Márquez's sign was not elicited. COMMON BILE DUCT: Measures 4 mm. No stones. No dilatation. PANCREAS: Unremarkable as visualized. No mass. No ductal dilatation. RIGHT KIDNEY: Measures 11.5 x 4.3 x 4.8 cm in length. Normal echogenicity. No calculus, mass, or hydronephrosis. AORTA: No aneurysmal dilatation. IVC: Unremarkable. OTHER FINDINGS: None . IMPRESSION: Cholelithiasis with borderline wall thickening/edema. Sonographic Márquez's sign was not elicited. Findings are equivocal for acute cholecystitis. Nuclear medicine hepatobiliary scan can be obtained to further evaluate patency of the cystic duct.
--- NOTE | 2018-06-17 12:37 | CP.PCM.CON ---
History of Present Illness - History of Present Illness History of Present Illness: 63 yo male admitted with sepsis and abdominal pain.. Patient had recent prostate resection on 06/06/2018 at [facility] and since then having abdominal pain. Has had Hood since surgery and didn't f/u with Urology for removal Found to be ta chycardic and with leukocytosis in ER. C/o upper abdominal pain and difficulty swallowing. Review of Systems - Constitutional Constitutional: absent: Chills - EENT Eyes: absent: Blurred Vision Ears: absent: Decreased Hearing Nose/Mouth/Throat: absent: Epistaxis - Cardiovascular Cardiovascular: absent: Chest Pain - Respiratory Respiratory: Dyspnea - Gastrointestinal Gastrointestinal: Abdominal Pain - Genitourinary Genitourinary: As Per HPI Past Patient History - Past Medical History & Family History Past Medical History?: Yes - Past Social History Smoking Status: Former Smoker - CARDIAC Hx Hypercholesterolemia: Yes Hx Hypertension: Yes - PULMONARY Hx Respiratory Disorders: No - NEUROLOGICAL HX Cerebrovascular Accident: Yes - HEENT Hx HEENT Problems: No - RENAL Hx Chronic Kidney Disease: Yes Hx Kidney Stones: Yes - ENDOCRINE/METABOLIC Hx Endocrine Disorders: No - HEMATOLOGICAL/ONCOLOGICAL Hx Blood Disorders: No - INTEGUMENTARY Hx Dermatological Problems: No - MUSCULOSKELETAL/RHEUMATOLOGICAL Hx Musculoskeletal Disorders: No Hx Falls: No - GASTROINTESTINAL Hx Gastrointestinal Disorders: Yes Hx Hemorrhoids: Yes - GENITOURINARY/GYNECOLOGICAL Hx Genitourinary Disorders: Yes Hx Prostate Cancer: Yes Hx Prostate Problems: Yes (enlarged prostate) - PSYCHIATRIC Hx Substance Use: No - SURGICAL HISTORY Hx Coronary Artery Bypass Graft: Yes - ANESTHESIA Hx Anesthesia: Yes Hx Anesthesia Reactions: No Meds Allergies/Adverse Reactions: Allergies Allergy/AdvReac Type Severity Reaction Status Date / Time No Known Allergies Allergy Verified 11/23/17 23:09 - Medications Medications: Current Medications Aspirin (Ecotrin) 81 mg PO DAILY [facility] Last Admin: 06/17/18 08:58 Dose: Not Given Atorvastatin Calcium (Lipitor) 40 mg PO DAILY [facility] Last Admin: 06/17/18 08:55 Dose: Not Given Enalapril Maleate (Vasotec) 2.5 mg PO BID [facility] Last Admin: 06/17/18 08:55 Dose: Not Given Enoxaparin Sodium (Lovenox) 70 mg SC Q12 [facility]; Protocol Last Admin: 06/17/18 11:20 Dose: 70 mg Famotidine (Pepcid) 20 mg IVP Q12 [facility] Last Admin: 06/17/18 09:18 Dose: 20 mg Folic Acid (Folic Acid) 1 mg PO DAILY [facility] Last Admin: 06/17/18 08:59 Dose: Not Given Dextrose/Sodium Chloride (Dextrose 5%-0.9% Ns 500 Ml) 1,000 mls @ 100 mls/hr IV .Q10H [facility] Last Admin: 06/17/18 08:59 Dose: Not Given Lactated Ringer's (Lactated Ringer's) 1,000 mls @ 150 mls/hr IV .Q6H40M [facility] Last Admin: 06/17/18 08:53 Dose: 150 mls/hr Levetiracetam 500 mg/ Sodium (Chloride) 105 mls @ 210 mls/hr IVPB Q12 [facility] Last Admin: 06/17/18 03:04 Dose: 210 mls/hr Piperacillin Sod/Tazobactam (Sod 3.375 gm/ Sodium Chloride) 100 mls @ 100 mls/hr IVPB Q6 [facility]; Protocol Last Admin: 06/17/18 09:06 Dose: 100 mls/hr Morphine Sulfate (Morphine) 2 mg IVP Q6 PRN PRN Reason: Pain, moderate (4-7) Last Admin: 06/17/18 11:23 Dose: 2 mg Morphine Sulfate (Morphine) 4 mg IVP Q6 PRN PRN Reason: Pain, severe (8-10) Ondansetron HCl (Zofran Inj) 4 mg IVP Q6 PRN PRN Reason: Nausea/Vomiting Last Admin: 06/17/18 03:08 Dose: 4 mg Oxybutynin Chloride (Ditropan Tab) 5 mg PO TID [facility] Last Admin: 06/17/18 08:59 Dose: Not Given Tamsulosin HCl (Flomax) 0.4 mg PO DAILY [facility] Last Admin: 06/17/18 08:58 Dose: Not Given Physical Exam - Constitutional Appears: No Acute Distress - Head Exam Head Exam: ATRAUMATIC - Eye Exam Eye Exam: Normal appearance - ENT Exam ENT Exam: Normal Exam - Neck Exam Neck exam: Positive for: Normal Inspection - Respiratory Exam Respiratory Exam: Rhonchi - Cardiovascular Exam Cardiovascular Exam: +S1, +S2 - GI/Abdominal Exam GI & Abdominal Exam: Normal Bowel Sounds, Tenderness Additional comments: upper and midabdominal tenderness Results - Vital Signs Recent Vital Signs: Last Vital Signs Temp 98.6 F 06/17/18 11:41 Pulse 90 06/17/18 11:41 Resp 18 06/17/18 11:41 BP 124/85 06/17/18 11:41 Pulse Ox 97 06/17/18 11:41 - Labs Result Diagrams: 06/17/18 05:19 06/17/18 05:19 Labs: Laboratory Results - last 24 hr 06/16/18 06/16/18 06/16/18 19:57 19:57 19:57 WBC 18.4 H RBC 3.91 L Hgb 12.1 D Hct 37.0 MCV 94.6 H MCH 30.9 MCHC 32.7 L RDW 13.2 Plt Count 204 MPV 10.4 Neut % (Auto) 88.0 H Lymph % (Auto) 4.5 L [place] % (Auto) 7.0 Eos % (Auto) 0.2 Baso % (Auto) 0.3 Neut # (Auto) 16.2 H Lymph # (Auto) 0.8 L [place] # (Auto) 1.3 H Eos # (Auto) 0.0 Baso # (Auto) 0.1 Neutrophils % (Manual) 90 H Lymphocytes % (Manual) 5 L Monocytes % (Manual) 5 Platelet Estimate Normal Large Platelets Present PT 15.4 H INR 1.4 APTT 30.8 pO2 VBG pH VBG pCO2 VBG HCO3 VBG Total CO2 VBG O2 Sat (Calc) VBG Base Excess VBG Potassium Glucose Lactate FiO2 Sodium 144 Potassium 4.3 Chloride 107 Carbon Dioxide 25 Anion Gap 16 BUN 22 H Creatinine 0.8 Est GFR ( Amer) > 60 Est GFR (Non-Af Amer) > 60 Random Glucose 129 H Calcium 9.1 Total Bilirubin 1.8 H AST 184 H D ALT 194 H D Alkaline Phosphatase 97 Total Protein 6.6 Albumin 3.5 Globulin 3.1 Albumin/Globulin Ratio 1.1 Lipase 125 Venous Blood Potassium Urine Color Urine Clarity Urine pH Ur Specific [place] Urine Protein Urine Glucose (UA) Urine Ketones Urine Blood Urine Nitrate Urine Bilirubin Urine Urobilinogen Ur Leukocyte Esterase Urine RBC (Auto) Urine Microscopic WBC Amorphous Sediment Urine Bacteria Blood Type Antibody Screen BBK History Checked 06/16/18 06/16/18 06/16/18 19:57 19:57 20:09 WBC RBC Hgb Hct MCV MCH MCHC RDW Plt Count MPV Neut % (Auto) Lymph % (Auto) [place] % (Auto) Eos % (Auto) Baso % (Auto) Neut # (Auto) Lymph # (Auto) [place] # (Auto) Eos # (Auto) Baso # (Auto) Neutrophils % (Manual) Lymphocytes % (Manual) Monocytes % (Manual) Platelet Estimate Large Platelets PT INR APTT pO2 29 L VBG pH 7.49 H VBG pCO2 33 L VBG HCO3 25.7 VBG Total CO2 26.1 VBG O2 Sat (Calc) 58.6 VBG Base Excess 2.2 H VBG Potassium 4.4 Glucose 131 H Lactate 1.7 FiO2 21.0 Sodium 142.0 Potassium Chloride 108.0 H Carbon Dioxide Anion Gap BUN Creatinine Est GFR ( Amer) Est GFR (Non-Af Amer) Random Glucose Calcium Total Bilirubin AST ALT Alkaline Phosphatase Total Protein Albumin Globulin Albumin/Globulin Ratio Lipase Venous Blood Potassium 4.4 Urine Color [place] Urine Clarity Cloudy Urine pH 7.0 Ur Specific [place] 1.024 Urine Protein 100 Urine Glucose (UA) Neg Urine Ketones Trace Urine Blood Large Urine Nitrate Negative Urine Bilirubin Negative Urine Urobilinogen 0.2-1.0 Ur Leukocyte Esterase Mod Urine RBC (Auto) 250 H Urine Microscopic WBC 42 H Amorphous Sediment Rare H Urine Bacteria Large Blood Type A POSITIVE Antibody Screen Negative BBK History Checked Patient has bt 06/17/18 06/17/18 05:19 05:19 WBC 15.8 H RBC 3.29 L Hgb 10.4 L Hct 31.3 L MCV 95.4 H MCH 31.5 H MCHC 33.1 RDW 13.4 Plt Count 158 MPV 10.6 Neut % (Auto) 86.2 H Lymph % (Auto) 5.9 L [place] % (Auto) 7.6 Eos % (Auto) 0.1 Baso % (Auto) 0.2 Neut # (Auto) 13.6 H Lymph # (Auto) 0.9 L [place] # (Auto) 1.2 H Eos # (Auto) 0.0 Baso # (Auto) 0.0 Neutrophils % (Manual) Lymphocytes % (Manual) Monocytes % (Manual) Platelet Estimate Large Platelets PT INR APTT pO2 VBG pH VBG pCO2 VBG HCO3 VBG Total CO2 VBG O2 Sat (Calc) VBG Base Excess VBG Potassium Glucose Lactate FiO2 Sodium 142 Potassium 4.3 Chloride 110 H Carbon Dioxide 24 Anion Gap 12 BUN 20 Creatinine 0.9 Est GFR ( Amer) > 60 Est GFR (Non-Af Amer) > 60 Random Glucose 112 H Calcium 8.2 L Total Bilirubin 1.6 H AST 107 H D ALT 167 H Alkaline Phosphatase 78 Total Protein 5.5 L Albumin 2.8 L Globulin 2.7 Albumin/Globulin Ratio 1.0 Lipase Venous Blood Potassium Urine Color Urine Clarity Urine pH Ur Specific [place] Urine Protein Urine Glucose (UA) Urine Ketones Urine Blood Urine Nitrate Urine Bilirubin Urine Urobilinogen Ur Leukocyte Esterase Urine RBC (Auto) Urine Microscopic WBC Amorphous Sediment Urine Bacteria Blood Type Antibody Screen BBK History Checked - Imaging and Cardiology CT scan - abdomen Status: Image reviewed by me, Report reviewed by me US - abdomen Status: Image reviewed by me, Report reviewed by me Assessment & Plan (1) Abdominal pain Assessment and Plan: Sono showed pericholecystic fluid and gallstones but negative Santos's sign. Scheduled later for HIDA. Already on broad spectrum abx. IV pepcid, Also found to have PE and is now on Lovenox. Status: Acute
[2018-06-17 16:10] LABS: ABG ALLEN TEST YES; ARTERIAL BLOOD GAS HCO3 26.5 mmol/L (21-28); ARTERIAL BLOOD GAS HEMOGLOBIN 10.4 g/dL (11.7-17.4); ARTERIAL BLOOD GAS O2 CAPACITY 14.3 mL/dL (16-24); ARTERIAL BLOOD GAS O2 CONTENT 14.3 ML/dL (15-23); ARTERIAL BLOOD GAS O2 SAT 99.7 % (95-98); ARTERIAL BLOOD GAS PCO2 34 mm/Hg (35-45); ARTERIAL BLOOD GAS PH 7.48 (7.35-7.45); ARTERIAL BLOOD GAS PO2 131 mm/Hg (80-100); ARTERIAL BLOOD GAS TCO2 26.3 mmol/L (22-28)
--- NOTE | 2018-06-17 17:14 | US ---
Date of service: 06/17/2018 PROCEDURE: Bilateral upper Extremity Venous Doppler HISTORY: R/O DVT COMPARISON: None available. TECHNIQUE: Bilateral upper extremity deep veins, including the lower internal jugular, subclavian, axillary and brachial veins, were evaluated flow, compressibility and respiratory phasicity. FINDINGS: Normal flow, compressibility and respiratory phasicity was observed in the the bilateral upper extremity deep veins. Left ulnar and radial veins were not well-visualized. IMPRESSION: No evidence of deep venous thrombosis.
[2018-06-17 18:05] LABS: URINE BACTERIA RARE (<OCC); URINE BILIRUBIN NEGATIVE (NEGATIVE); URINE BLOOD MODERATE (NEGATIVE); URINE CLARITY SLIGHTY-CLOUDY (Clear); URINE COLOR YELLOW (YELLOW); URINE GLUCOSE (UA) NEG (NEGATIVE); URINE LEUKOCYTE ESTERASE NEG Leu/uL (Negative); URINE PROTEIN 30 mg/dL (NEGATIVE); URINE UROBILINOGEN 0.2-1.0 mg/dL (0.2-1.0)
--- NOTE | 2018-06-17 19:58 | CP.PCM.CON ---
History of Present Illness - History of Present Illness History of Present Illness: Pulmonary consult for a 63 y/o M, with extensive b/l PE , small b/l pleural effusion and bibasilar infiltrates showing on CT today. Pt admitted on 06/16/18 for abdominal pain s/p Robotic Prostatectomy at [facility] (POD# 10 ). Pt came c/o of abdominal pain, cramping, severe intensity 8:10 associated to nausea, vomiting, unable to tolerate any food or fluid. Pt with Hx of chronic medical conditions like: Liver Cirrhosis, CAD, s/p CABG, HTN, Prostate Ca. 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 Aggravated factor: ADL's. Denied: Fever, CP, palpitations, syncope, SOB, cough, sick contact, recent travel out of [facility] Review of Systems - Review of Systems Systems not reviewed;Unavailable: Acuity of Condition, Other (difficulty talking 2nd to expresive aphasia.) Past Patient History - Past Medical History & Family History Past Medical History?: Yes Pertinent Family History: Unknown - Past Social History Smoking Status: Former Smoker Alcohol: > 2 Drinks/Day Drugs: Denies Home Situation {Lives}: Alone - CARDIAC Hx Cardiac Disorders: Yes Hx Hypercholesterolemia: Yes Hx Hypertension: Yes - PULMONARY Hx Respiratory Disorders: No - NEUROLOGICAL Hx Neurological Disorder: Yes HX Cerebrovascular Accident: Yes - HEENT Hx HEENT Problems: No - RENAL Hx Chronic Kidney Disease: Yes Hx Kidney Stones: Yes - ENDOCRINE/METABOLIC Hx Endocrine Disorders: No - HEMATOLOGICAL/ONCOLOGICAL Hx Blood Disorders: No - INTEGUMENTARY Hx Dermatological Problems: No - MUSCULOSKELETAL/RHEUMATOLOGICAL Hx Musculoskeletal Disorders: No Hx Falls: No - GASTROINTESTINAL Hx Gastrointestinal Disorders: Yes Hx Hemorrhoids: Yes - GENITOURINARY/GYNECOLOGICAL Hx Genitourinary Disorders: Yes Hx Prostate Cancer: Yes Hx Prostate Problems: Yes (enlarged prostate) - PSYCHIATRIC Hx Substance Use: No - SURGICAL HISTORY Hx Surgeries: Yes Hx Coronary Artery Bypass Graft: Yes Other/Comment: Robotic Prostatectomy 10 days ago at [facility] - ANESTHESIA Hx Anesthesia: Yes Hx Anesthesia Reactions: No Meds Allergies/Adverse Reactions: Allergies Allergy/AdvReac Type Severity Reaction Status Date / Time No Known Allergies Allergy Verified 11/23/17 23:09 - Medications Medications: Current Medications Aspirin (Ecotrin) 81 mg PO DAILY [facility] Last Admin: 06/17/18 08:58 Dose: Not Given Atorvastatin Calcium (Lipitor) 40 mg PO DAILY [facility] Last Admin: 06/17/18 08:55 Dose: Not Given Enalapril Maleate (Vasotec) 2.5 mg PO BID [facility] Last Admin: 06/17/18 17:13 Dose: Not Given Enoxaparin Sodium (Lovenox) 70 mg SC Q12 [facility]; Protocol Last Admin: 06/17/18 11:20 Dose: 70 mg Famotidine (Pepcid) 40 mg IVP Q12 [facility] Folic Acid (Folic Acid) 1 mg PO DAILY [facility] Last Admin: 06/17/18 08:59 Dose: Not Given Dextrose/Sodium Chloride (Dextrose 5%-0.9% Ns 500 Ml) 1,000 mls @ 100 mls/hr IV .Q10H [facility] Last Admin: 06/17/18 08:59 Dose: Not Given Lactated Ringer's (Lactated Ringer's) 1,000 mls @ 150 mls/hr IV .Q6H40M [facility] Last Admin: 06/17/18 15:49 Dose: 150 mls/hr Levetiracetam 500 mg/ Sodium (Chloride) 105 mls @ 210 mls/hr IVPB Q12 [facility] Last Admin: 06/17/18 03:04 Dose: 210 mls/hr Piperacillin Sod/Tazobactam (Sod 3.375 gm/ Sodium Chloride) 100 mls @ 100 mls/hr IVPB Q6 [facility]; Protocol Last Admin: 06/17/18 17:14 Dose: 100 mls/hr Vancomycin HCl 1 gm/ Sodium (Chloride) 250 mls @ 166.667 mls/hr IVPB Q12 [facility]; Protocol Morphine Sulfate (Morphine) 2 mg IVP Q6 PRN PRN Reason: Pain, moderate (4-7) Last Admin: 06/17/18 18:10 Dose: 2 mg Morphine Sulfate (Morphine) 4 mg IVP Q6 PRN PRN Reason: Pain, severe (8-10) Ondansetron HCl (Zofran Inj) 4 mg IVP Q6 PRN PRN Reason: Nausea/Vomiting Last Admin: 06/17/18 03:08 Dose: 4 mg Oxybutynin Chloride (Ditropan Tab) 5 mg PO TID [facility] Last Admin: 06/17/18 17:13 Dose: Not Given Tamsulosin HCl (Flomax) 0.4 mg PO DAILY [facility] Last Admin: 06/17/18 08:58 Dose: Not Given Physical Exam - Constitutional Appears: No Acute Distress, Chronically Ill - Head Exam Head Exam: NORMAL INSPECTION - Eye Exam Eye Exam: PERRL - ENT Exam ENT Exam: Normal Exam - Neck Exam Neck exam: Positive for: Normal Inspection - Respiratory Exam Respiratory Exam: Decreased Breath Sounds (at bases) - Cardiovascular Exam Cardiovascular Exam: REGULAR RHYTHM Additional comments: Mid chest old scar from CABG x2 - GI/Abdominal Exam GI & Abdominal Exam: Tenderness (R-L lower quadrants, Robotic incisions scar healing well.) - Exam Additional comments: Hood cather in place - Extremities Exam Extremities exam: Positive for: normal inspection - Back Exam Back exam: NORMAL INSPECTION - Neurological Exam Additional comments: Awake, forgetful, O x2, expressive aphasia - Skin Skin Exam: Normal Color, Warm Results - Vital Signs Recent Vital Signs: Last Vital Signs Temp 98.4 F 06/17/18 16:16 Pulse 85 06/17/18 16:16 Resp 18 06/17/18 16:16 BP 124/82 06/17/18 16:16 Pulse Ox 98 06/17/18 16:16 reviewed J.Polly - Labs Result Diagrams: 06/18/18 04:35 06/18/18 04:35 Labs: Laboratory Results - last 24 hr 06/16/18 06/16/18 06/16/18 19:57 19:57 19:57 WBC 18.4 H RBC 3.91 L Hgb 12.1 D Hct 37.0 MCV 94.6 H MCH 30.9 MCHC 32.7 L RDW 13.2 Plt Count 204 MPV 10.4 Neut % (Auto) 88.0 H Lymph % (Auto) 4.5 L [place] % (Auto) 7.0 Eos % (Auto) 0.2 Baso % (Auto) 0.3 Neut # (Auto) 16.2 H Lymph # (Auto) 0.8 L [place] # (Auto) 1.3 H Eos # (Auto) 0.0 Baso # (Auto) 0.1 Neutrophils % (Manual) 90 H Lymphocytes % (Manual) 5 L Monocytes % (Manual) 5 Platelet Estimate Normal Large Platelets Present PT 15.4 H INR 1.4 APTT 30.8 pCO2 pO2 HCO3 ABG pH ABG Total CO2 ABG O2 Saturation ABG O2 Content ABG Base Excess ABG Hemoglobin ABG Carboxyhemoglobin POC ABG HHb (Measured) ABG Methemoglobin ABG O2 Capacity Hieu Test VBG pH VBG pCO2 VBG HCO3 VBG Total CO2 VBG O2 Sat (Calc) VBG Base Excess VBG Potassium A-a O2 Difference Hgb O2 Saturation Glucose Lactate Liter Flow Vent Mode FiO2 Sodium 144 Potassium 4.3 Chloride 107 Carbon Dioxide 25 Anion Gap 16 BUN 22 H Creatinine 0.8 Est GFR ( Amer) > 60 Est GFR (Non-Af Amer) > 60 Random Glucose 129 H Calcium 9.1 Total Bilirubin 1.8 H AST 184 H D ALT 194 H D Alkaline Phosphatase 97 Total Protein 6.6 Albumin 3.5 Globulin 3.1 Albumin/Globulin Ratio 1.1 Lipase 125 Venous Blood Potassium Urine Color Urine Clarity Urine pH Ur Specific [place] Urine Protein Urine Glucose (UA) Urine Ketones Urine Blood Urine Nitrate Urine Bilirubin Urine Urobilinogen Ur Leukocyte Esterase Urine RBC (Auto) Urine Microscopic WBC Amorphous Sediment Urine Bacteria Blood Type Antibody Screen BBK History Checked 06/16/18 06/16/18 06/16/18 19:57 19:57 20:09 WBC RBC Hgb Hct MCV MCH MCHC RDW Plt Count MPV Neut % (Auto) Lymph % (Auto) [place] % (Auto) Eos % (Auto) Baso % (Auto) Neut # (Auto) Lymph # (Auto) [place] # (Auto) Eos # (Auto) Baso # (Auto) Neutrophils % (Manual) Lymphocytes % (Manual) Monocytes % (Manual) Platelet Estimate Large Platelets PT INR APTT pCO2 pO2 29 L HCO3 ABG pH ABG Total CO2 ABG O2 Saturation ABG O2 Content ABG Base Excess ABG Hemoglobin ABG Carboxyhemoglobin POC ABG HHb (Measured) ABG Methemoglobin ABG O2 Capacity Hieu Test VBG pH 7.49 H VBG pCO2 33 L VBG HCO3 25.7 VBG Total CO2 26.1 VBG O2 Sat (Calc) 58.6 VBG Base Excess 2.2 H VBG Potassium 4.4 A-a O2 Difference Hgb O2 Saturation Glucose 131 H Lactate 1.7 Liter Flow Vent Mode FiO2 21.0 Sodium 142.0 Potassium Chloride 108.0 H Carbon Dioxide Anion Gap BUN Creatinine Est GFR ( Amer) Est GFR (Non-Af Amer) Random Glucose Calcium Total Bilirubin AST ALT Alkaline Phosphatase Total Protein Albumin Globulin Albumin/Globulin Ratio Lipase Venous Blood Potassium 4.4 Urine Color [place] Urine Clarity Cloudy Urine pH 7.0 Ur Specific [place] 1.024 Urine Protein 100 Urine Glucose (UA) Neg Urine Ketones Trace Urine Blood Large Urine Nitrate Negative Urine Bilirubin Negative Urine Urobilinogen 0.2-1.0 Ur Leukocyte Esterase Mod Urine RBC (Auto) 250 H Urine Microscopic WBC 42 H Amorphous Sediment Rare H Urine Bacteria Large Blood Type A POSITIVE Antibody Screen Negative BBK History Checked Patient has bt 06/17/18 06/17/18 06/17/18 05:19 05:19 15:41 WBC 15.8 H RBC 3.29 L Hgb 10.4 L Hct 31.3 L MCV 95.4 H MCH 31.5 H MCHC 33.1 RDW 13.4 Plt Count 158 MPV 10.6 Neut % (Auto) 86.2 H Lymph % (Auto) 5.9 L [place] % (Auto) 7.6 Eos % (Auto) 0.1 Baso % (Auto) 0.2 Neut # (Auto) 13.6 H Lymph # (Auto) 0.9 L [place] # (Auto) 1.2 H Eos # (Auto) 0.0 Baso # (Auto) 0.0 Neutrophils % (Manual) Lymphocytes % (Manual) Monocytes % (Manual) Platelet Estimate Large Platelets PT INR APTT pCO2 34 L pO2 131 H HCO3 26.5 ABG pH 7.48 H ABG Total CO2 26.3 ABG O2 Saturation 99.7 H ABG O2 Content 14.3 L ABG Base Excess 2.0 ABG Hemoglobin 10.4 L ABG Carboxyhemoglobin 1.7 H POC ABG HHb (Measured) 0.3 ABG Methemoglobin 1.6 ABG O2 Capacity 14.3 L Hieu Test Yes VBG pH VBG pCO2 VBG HCO3 VBG Total CO2 VBG O2 Sat (Calc) VBG Base Excess VBG Potassium A-a O2 Difference 55.0 Hgb O2 Saturation 96.4 Glucose Lactate Liter Flow 3 Vent Mode Nc FiO2 32.0 Sodium 142 Potassium 4.3 Chloride 110 H Carbon Dioxide 24 Anion Gap 12 BUN 20 Creatinine 0.9 Est GFR ( Amer) > 60 Est GFR (Non-Af Amer) > 60 Random Glucose 112 H Calcium 8.2 L Total Bilirubin 1.6 H AST 107 H D ALT 167 H Alkaline Phosphatase 78 Total Protein 5.5 L Albumin 2.8 L Globulin 2.7 Albumin/Globulin Ratio 1.0 Lipase Venous Blood Potassium Urine Color Urine Clarity Urine pH Ur Specific [place] Urine Protein Urine Glucose (UA) Urine Ketones Urine Blood Urine Nitrate Urine Bilirubin Urine Urobilinogen Ur Leukocyte Esterase Urine RBC (Auto) Urine Microscopic WBC Amorphous Sediment Urine Bacteria Blood Type Antibody Screen BBK History Checked 06/17/18 17:46 WBC RBC Hgb Hct MCV MCH MCHC RDW Plt Count MPV Neut % (Auto) Lymph % (Auto) [place] % (Auto) Eos % (Auto) Baso % (Auto) Neut # (Auto) Lymph # (Auto) [place] # (Auto) Eos # (Auto) Baso # (Auto) Neutrophils % (Manual) Lymphocytes % (Manual) Monocytes % (Manual) Platelet Estimate Large Platelets PT INR APTT pCO2 pO2 HCO3 ABG pH ABG Total CO2 ABG O2 Saturation ABG O2 Content ABG Base Excess ABG Hemoglobin ABG Carboxyhemoglobin POC ABG HHb (Measured) ABG Methemoglobin ABG O2 Capacity Hieu Test VBG pH VBG pCO2 VBG HCO3 VBG Total CO2 VBG O2 Sat (Calc) VBG Base Excess VBG Potassium A-a O2 Difference Hgb O2 Saturation Glucose Lactate Liter Flow Vent Mode FiO2 Sodium Potassium Chloride Carbon Dioxide Anion Gap BUN Creatinine Est GFR ( Amer) Est GFR (Non-Af Amer) Random Glucose Calcium Total Bilirubin AST ALT Alkaline Phosphatase Total Protein Albumin Globulin Albumin/Globulin Ratio Lipase Venous Blood Potassium Urine Color Yellow Urine Clarity Slighty-cloudy Urine pH 6.0 Ur Specific [place] 1.010 Urine Protein 30 Urine Glucose (UA) Neg Urine Ketones Negative Urine Blood Moderate Urine Nitrate Negative Urine Bilirubin Negative Urine Urobilinogen 0.2-1.0 Ur Leukocyte Esterase Neg Urine RBC (Auto) 18 H Urine Microscopic WBC Amorphous Sediment Urine Bacteria Rare Blood Type Antibody Screen BBK History Checked reviewed J.P. - Imaging and Cardiology CT scan - chest Status: Report reviewed by me (MelidaP.) CT scan - abdomen Status: Report reviewed by me (JClarkeP.) CT scan - pelvis Status: Report reviewed by me (MelidaP.) Venous US Status: Report reviewed by me (MelidaP.) Assessment & Plan (1) Pulmonary embolism, bilateral Status: Acute Priority: High (2) PNA (pneumonia) Status: Acute (3) Small pleural effusion Status: Acute Priority: High Comment: B/L - Assessment and Plan (Free Text) Plan: Agree with management, Pt on Lovenox, Zosyn, vanco, continue O2 NC, f/u ABG room air, Venous Doppler L/E. - Date & Time Date: 06/17/18 Time: 15:00
--- NOTE | 2018-06-17 21:21 | CARD ---
APPROVED REPORT Date of service: 06/16/2018 EKG Measurement Heart [id number] <Conclusion> Sinus tachycardia T wave abnormality, consider anterior ischemia Abnormal ECG
[2018-06-18] MEDS: Piperacillin/Tazobact 3.375 GM in Sodium Chloride 0.9% 100 ML IVPB SCH ×4 (03:31→21:29)
[2018-06-18 05:46] LABS: BASO % 0.4 % (0.0-2.0); EOS # 0.1 K/uL (0.0-0.7); EOS % 1.1 % (0.0-4.0); HEMOGLOBIN 9.3 g/dL (12.0-18.0); LYMPH # 0.9 K/uL (1.0-4.3); MEAN CELL VOLUME 96.5 fl (80.0-94.0); MEAN CORPUSCULAR HEMOGLOBIN 31.8 pg (27.0-31.0); MEAN CORPUSCULAR HGB CONC 32.9 g/dL (33.0-37.0); MEAN PLATELET VOLUME 10.5 fl (7.2-11.7); MONO # 0.8 K/uL (0.0-0.8); MONO % 7.3 % (0.0-10.0); NEUT # 8.5 K/uL (1.8-7.0); NEUT % 82.2 % (50.0-75.0); RBC 2.93 Mil/uL (4.40-5.90); RED CELL DISTRIBUTION WIDTH 13.6 % (11.5-14.5); WHITE BLOOD COUNT 10.4 K/uL (4.8-10.8)
[2018-06-18 05:58] LABS: ALB/GLOB RATIO 0.9 (1.0-2.1); ALBUMIN 2.5 g/dL (3.5-5.0); ALT/SGPT 125 U/L (21-72); AST/SGOT 74 U/L (17-59); BLOOD UREA NITROGEN 23 mg/dl (9-20); CALCIUM 7.6 mg/dL (8.4-10.2); GFR NON-AFRICAN AMERICAN > 60
[2018-06-18] MEDS: Lactated Ringer's 1,000 ML IV SCH ×3 (07:02→18:34)
--- NOTE | 2018-06-18 08:13 | CP.PCM.PN ---
Objective - Vital Signs/Intake and Output Vital Signs (last 24 hours): Temp Pulse Resp BP Pulse Ox 97.5 F L 60 18 100/62 97 06/18/18 05:00 06/18/18 05:00 06/18/18 05:00 06/18/18 05:00 06/18/18 05:00 Intake and Output: 06/18/18 06/18/18 06:59 18:59 Intake Total 1600 Output Total 850 Balance 750 - Medications Medications: Current Medications Aspirin (Ecotrin) 81 mg PO DAILY [facility] Last Admin: 06/17/18 08:58 Dose: Not Given Atorvastatin Calcium (Lipitor) 40 mg PO DAILY [facility] Last Admin: 06/17/18 08:55 Dose: Not Given Enalapril Maleate (Vasotec) 2.5 mg PO BID [facility] Last Admin: 06/17/18 17:13 Dose: Not Given Enoxaparin Sodium (Lovenox) 70 mg SC Q12 [facility]; Protocol Last Admin: 06/17/18 21:37 Dose: 70 mg Famotidine (Pepcid) 40 mg IVP Q12 [facility] Last Admin: 06/17/18 21:33 Dose: 40 mg Folic Acid (Folic Acid) 1 mg PO DAILY [facility] Last Admin: 06/17/18 08:59 Dose: Not Given Lactated Ringer's (Lactated Ringer's) 1,000 mls @ 150 mls/hr IV .Q6H40M [facility] Last Admin: 06/18/18 07:02 Dose: 150 mls/hr Levetiracetam 500 mg/ Sodium (Chloride) 105 mls @ 210 mls/hr IVPB Q12 [facility] Last Admin: 06/17/18 21:38 Dose: 210 mls/hr Piperacillin Sod/Tazobactam (Sod 3.375 gm/ Sodium Chloride) 100 mls @ 100 mls/hr IVPB Q6 [facility]; Protocol Last Admin: 06/18/18 03:31 Dose: 100 mls/hr Vancomycin HCl 1 gm/ Sodium (Chloride) 250 mls @ 166.667 mls/hr IVPB Q12 [facility]; Protocol Last Admin: 06/17/18 21:48 Dose: 166.667 mls/hr Morphine Sulfate (Morphine) 2 mg IVP Q6 PRN PRN Reason: Pain, moderate (4-7) Last Admin: 06/17/18 18:10 Dose: 2 mg Morphine Sulfate (Morphine) 4 mg IVP Q6 PRN PRN Reason: Pain, severe (8-10) Ondansetron HCl (Zofran Inj) 4 mg IVP Q6 PRN PRN Reason: Nausea/Vomiting Last Admin: 06/17/18 03:08 Dose: 4 mg Oxybutynin Chloride (Ditropan Tab) 5 mg PO TID [facility] Last Admin: 06/17/18 17:13 Dose: Not Given Tamsulosin HCl (Flomax) 0.4 mg PO DAILY [facility] Last Admin: 06/17/18 08:58 Dose: Not Given - Labs Labs: 06/18/18 04:35 06/18/18 04:35 PT 15.4 Seconds (9.8-13.1) H 06/16/18 19:57 INR 1.4 06/16/18 19:57 APTT 30.8 Seconds (25.6-37.1) 06/16/18 19:57
--- NOTE | 2018-06-18 09:17 | CP.PCM.PN ---
Subjective - Date & Time of Evaluation Date of Evaluation: 06/18/18 Time of Evaluation: 10:06 - Subjective Subjective: 63 y/o M s/p prostate resection at [facility] 06/06/18 was seen and examined this morning at bedside. There were no adverse events overnight. Patient on 2L of NC saturating at 97% & hemodynamically stable. He continues to complain of abdom inal pain, but denies any f/c/n/v or diarrhea. Patient is NPO for HIDA scan today. Will fu recommendations from urology, surgery, and GI teams. Objective - Vital Signs/Intake and Output Vital Signs (last 24 hours): Temp Pulse Resp BP Pulse Ox 98.4 F 60 20 107/65 99 06/18/18 08:43 06/18/18 08:43 06/18/18 08:43 06/18/18 08:43 06/18/18 08:43 Intake and Output: 06/18/18 06/18/18 06:59 18:59 Intake Total 1600 Output Total 850 Balance 750 - Medications Medications: Current Medications Aspirin (Ecotrin) 81 mg PO DAILY [facility] Last Admin: 06/17/18 08:58 Dose: Not Given Atorvastatin Calcium (Lipitor) 40 mg PO DAILY [facility] Last Admin: 06/17/18 08:55 Dose: Not Given Enalapril Maleate (Vasotec) 2.5 mg PO BID [facility] Last Admin: 06/17/18 17:13 Dose: Not Given Enoxaparin Sodium (Lovenox) 70 mg SC Q12 [facility]; Protocol Last Admin: 06/17/18 21:37 Dose: 70 mg Famotidine (Pepcid) 40 mg IVP Q12 [facility] Last Admin: 06/17/18 21:33 Dose: 40 mg Folic Acid (Folic Acid) 1 mg PO DAILY [facility] Last Admin: 06/17/18 08:59 Dose: Not Given Lactated Ringer's (Lactated Ringer's) 1,000 mls @ 150 mls/hr IV .Q6H40M [facility] Last Admin: 06/18/18 07:02 Dose: 150 mls/hr Levetiracetam 500 mg/ Sodium (Chloride) 105 mls @ 210 mls/hr IVPB Q12 [facility] Last Admin: 06/17/18 21:38 Dose: 210 mls/hr Piperacillin Sod/Tazobactam (Sod 3.375 gm/ Sodium Chloride) 100 mls @ 100 mls/hr IVPB Q6 [facility]; Protocol Last Admin: 06/18/18 03:31 Dose: 100 mls/hr Vancomycin HCl 1 gm/ Sodium (Chloride) 250 mls @ 166.667 mls/hr IVPB Q12 [facility]; Protocol Last Admin: 06/17/18 21:48 Dose: 166.667 mls/hr Morphine Sulfate (Morphine) 2 mg IVP Q6 PRN PRN Reason: Pain, moderate (4-7) Last Admin: 06/17/18 18:10 Dose: 2 mg Morphine Sulfate (Morphine) 4 mg IVP Q6 PRN PRN Reason: Pain, severe (8-10) Ondansetron HCl (Zofran Inj) 4 mg IVP Q6 PRN PRN Reason: Nausea/Vomiting Last Admin: 06/17/18 03:08 Dose: 4 mg Oxybutynin Chloride (Ditropan Tab) 5 mg PO TID [facility] Last Admin: 06/17/18 17:13 Dose: Not Given Tamsulosin HCl (Flomax) 0.4 mg PO DAILY [facility] Last Admin: 06/17/18 08:58 Dose: Not Given - Labs Labs: 06/18/18 04:35 06/18/18 04:35 PT 15.4 Seconds (9.8-13.1) H 06/16/18 19:57 INR 1.4 06/16/18 19:57 APTT 30.8 Seconds (25.6-37.1) 06/16/18 19:57 - Head Exam Head Exam: ATRAUMATIC - Eye Exam Pupil Exam: PERRL - ENT Exam ENT Exam: Mucous Membranes Moist - Respiratory Exam Respiratory Exam: Decreased Breath Sounds - Cardiovascular Exam Cardiovascular Exam: REGULAR RHYTHM, +S1, +S2 - GI/Abdominal Exam GI & Abdominal Exam: Soft, Tenderness. absent: Guarding, Rigid Additional comments: laparoscopic incisions c/d/i - Extremities Exam Extremities Exam: absent: Calf Tenderness - Neurological Exam Neurological Exam: Alert, Awake, Oriented x3 Additional comments: expressive aphasia - Psychiatric Exam Psychiatric exam: Normal Mood - Skin Skin Exam: Dry Assessment and Plan - Assessment and Plan (Free Text) Assessment: 63 y/o M with PMHx prostate CA s/p prostate resection at [facility], CVA with residual expressive aphasia, CAD with CABG, HTN and HLD presented to ED for evaluation of n/v/diarrhea & diffuse abdominal pain x 3 days. Patient was admitted for further management of sepsis and found to have acute cholecystitis, b/l PE, b/l pneumonia, and complicated UTI with gram neg rods. Sepsis likely multifactorial (acute complicated UTI, cholecystitis, and pneumonia) -ID consulted -Initial VS in ED: BP 147/91, HR 127, RR 20, pulse ox 95% -Afebrile, tachycardic -Leukocytosis with wbc of 18.4, LA 1.7 on VBG -UA shows moderate LE, large blood, large bacteria -hx prostate resection on 06/06/18 -s/p 1.5 L NS bolus -s/p Cipro and Flagyl in ED -C/w Zosyn 3.375 gm q 6hs -Urology consulted with Dr. Schmidt; patient has coronel in place; f/u recs regarding removal of coronel. -WBC trending down; -blood cx neg as per prelim report -urine cx showing + gram negative esau UTI -s/p recent surgery 06/06/18 at [place] -Gram neg rods found in urine; fu sensitivity -C/w zosyn B/l PE -Dr. White consulted -hemodynamically stable saturating 94- 97 % on 2 L O2 via NC RR 18 -C/w therapeutic lovenox -Extremity ultrasound neg for dvt Acute cholecystitis with cholelithiasis (possible obstruction?) -CT abd showed no obstruction -Bilirubin & lft's were elevated; trending down now -RUQ US shows cholelithiasis and acalculus cholecystitis -FU MRI abd w/o contrast to r/o obstructive cholelithiasis -NPO -IVFs: LR @150 cc/ hr -Pain meds: Morphine prn -Antiemetics with Zofran 4 mg IVPB PRN -General surgery recommendations appreciated -GI recommendations appreciated- f/u HIDA scan -Total Bili initially: 1.8; AST/ALT: 184/194- trending down today -FU AM labs B/l pneumonia -C/w IV vanc & zosyn day 2 HTN and CAD S/P CABG -stable BP -hold HTN medications for now CVA with residual expressive aphasia -cw aspirin 81mg PO QD and atorvastatin 40mg PO QD -Cont to monitor vs CAD s/p CABG - cw aspirin 81mg PO QD and atorvastatin 40mg PO QD -Cont to monitor vs hx of prostate CA resection s/p recent surgery 06/06/18 at [place] -C/w coronel for now -FU recs from Urology -Cont flomax BPH -C/w flomax .4mg PO QD -C/w oxybutynin DVT prophylaxis -on therapeutic lovenox Code Status -Full code
--- NOTE | 2018-06-18 09:41 | CP.PCM.CON ---
History of Present Illness - History of Present Illness History of Present Illness: Infectious Disease Consultation Note- asked to see this patietn at the request of Hospitalist for help with antibiotic management for cholecystitis and possible UTI. HPI- Patient is a 63 year old male with pmh of CAD s/p CABG, HTN, CVA with residual expressive aphasia, prostate CA s/p robotic prostataectomy at [facility] 06/06/2018 with residual coronel still in place since his surgery who was admitted with c/o nausea and vomiting adn abdominal pain yesterday. Patietn [email or web address] he was d/c from [place] on 06/10/2018 and since then he has had abdominal pain and nausea and vomiting. pt. was supposed to f/u with his urologist on 06/15/2018 to have coronel removed but he did not follow up. he also reports some chills but no fever and mild sob but bno cough. On admission he is found to have pulmonary embolism, possible cholecystitis, leukocytosis, CT A/P shows possible cholecystitis, filling defect within the right main pulmonary artery, small right sided pleural effusion and B/L lower lobe infiltrates. RUQ US shows cholelithiasis and acalculus cholecystitis. Patient is admitted for sepsis work up and evaluation. PMHx: CAD s/p CABG, HTN, prostate CA, CVA about 14 yrs ago with residual expressive aphasia, HLD Surgery hx: CABG, Prostate resection Family hx: Father: CAD Social hx: former smoker (20+ packed years smoker), quit 16 years ago. Denies drugs uses. Lives alone and completely independent. Allergies: NKDA PMD: Dr. Espinosa Urologist: Dr. Salazar at [facility] Review of Systems - Review of Systems Review of Systems: ROS- pt. denies any active fever but states had chills, denies any JENNINGS, denies any cough but did have mild sob on admission, denies anyc hest pain, + abdominal pian mostly in the left side. report loose BM but not watery + nauea nad vomiting has coronel still in place. Past Patient History - Past Medical History & Family History Past Medical History?: Yes - Past Social History Smoking Status: Former Smoker Alcohol: > 2 Drinks/Day Drugs: Denies Home Situation {Lives}: Alone - CARDIAC Hx Cardiac Disorders: Yes Hx Hypercholesterolemia: Yes Hx Hypertension: Yes Other/Comment: CAD s/p CABG - PULMONARY Hx Respiratory Disorders: No - NEUROLOGICAL Hx Neurological Disorder: Yes HX Cerebrovascular Accident: Yes - HEENT Hx HEENT Problems: No - RENAL Hx Chronic Kidney Disease: Yes Hx Kidney Stones: Yes - ENDOCRINE/METABOLIC Hx Endocrine Disorders: No - HEMATOLOGICAL/ONCOLOGICAL Hx Blood Disorders: No - INTEGUMENTARY Hx Dermatological Problems: No - MUSCULOSKELETAL/RHEUMATOLOGICAL Hx Musculoskeletal Disorders: No Hx Falls: No - GASTROINTESTINAL Hx Gastrointestinal Disorders: Yes Hx Hemorrhoids: Yes - GENITOURINARY/GYNECOLOGICAL Hx Genitourinary Disorders: Yes Hx Prostate Cancer: Yes Hx Prostate Problems: Yes (enlarged prostate) - PSYCHIATRIC Hx Substance Use: No - SURGICAL HISTORY Hx Surgeries: Yes Hx Coronary Artery Bypass Graft: Yes Other/Comment: Robotic Prostatectomy 10 days ago at [facility] - ANESTHESIA Hx Anesthesia: Yes Hx Anesthesia Reactions: No Meds Allergies/Adverse Reactions: Allergies Allergy/AdvReac Type Severity Reaction Status Date / Time No Known Allergies Allergy Verified 11/23/17 23:09 - Medications Medications: Current Medications Aspirin (Ecotrin) 81 mg PO DAILY [facility] Last Admin: 06/17/18 08:58 Dose: Not Given Atorvastatin Calcium (Lipitor) 40 mg PO DAILY [facility] Last Admin: 06/17/18 08:55 Dose: Not Given Enalapril Maleate (Vasotec) 2.5 mg PO BID [facility] Last Admin: 06/17/18 17:13 Dose: Not Given Enoxaparin Sodium (Lovenox) 70 mg SC Q12 [facility]; Protocol Last Admin: 06/17/18 21:37 Dose: 70 mg Famotidine (Pepcid) 40 mg IVP Q12 [facility] Last Admin: 06/17/18 21:33 Dose: 40 mg Folic Acid (Folic Acid) 1 mg PO DAILY [facility] Last Admin: 06/17/18 08:59 Dose: Not Given Lactated Ringer's (Lactated Ringer's) 1,000 mls @ 150 mls/hr IV .Q6H40M [facility] Last Admin: 06/18/18 07:02 Dose: 150 mls/hr Levetiracetam 500 mg/ Sodium (Chloride) 105 mls @ 210 mls/hr IVPB Q12 [facility] Last Admin: 06/17/18 21:38 Dose: 210 mls/hr Piperacillin Sod/Tazobactam (Sod 3.375 gm/ Sodium Chloride) 100 mls @ 100 mls/hr IVPB Q6 [facility]; Protocol Last Admin: 06/18/18 03:31 Dose: 100 mls/hr Vancomycin HCl 1 gm/ Sodium (Chloride) 250 mls @ 166.667 mls/hr IVPB Q12 [facility]; Protocol Last Admin: 06/17/18 21:48 Dose: 166.667 mls/hr Morphine Sulfate (Morphine) 2 mg IVP Q6 PRN PRN Reason: Pain, moderate (4-7) Last Admin: 06/17/18 18:10 Dose: 2 mg Morphine Sulfate (Morphine) 4 mg IVP Q6 PRN PRN Reason: Pain, severe (8-10) Ondansetron HCl (Zofran Inj) 4 mg IVP Q6 PRN PRN Reason: Nausea/Vomiting Last Admin: 06/17/18 03:08 Dose: 4 mg Oxybutynin Chloride (Ditropan Tab) 5 mg PO TID [facility] Last Admin: 06/17/18 17:13 Dose: Not Given Tamsulosin HCl (Flomax) 0.4 mg PO DAILY [facility] Last Admin: 06/17/18 08:58 Dose: Not Given Physical Exam - Constitutional Appears: No Acute Distress - Head Exam Head Exam: ATRAUMATIC - Eye Exam Eye Exam: EOMI, PERRL - ENT Exam ENT Exam: Normal Oropharynx - Neck Exam Neck exam: Positive for: Full Rom - Respiratory Exam Respiratory Exam: NORMAL BREATHING PATTERN Additional comments: no wheezing decreased breath sounds at bases - Cardiovascular Exam Cardiovascular Exam: RRR, +S1, +S2 - GI/Abdominal Exam Additional comments: few small incisions noted on the abdomen form his surgery adn on the left abdominal region has more tendernenss to plapation around where he has small 2 x [address]( he states he had drain there before). + BS no erythema - Exam Additional comments: has coronel in place sicne being dd/c from [facility] 06/10/2018 not dark slightly cloudy - Extremities Exam Extremities exam: Positive for: normal inspection - Neurological Exam Neurological exam: Alert, Oriented x3 Results - Vital Signs Recent Vital Signs: Last Vital Signs Temp 98.4 F 06/18/18 08:43 Pulse 60 06/18/18 08:43 Resp 20 06/18/18 08:43 BP 107/65 06/18/18 08:43 Pulse Ox 99 06/18/18 08:43 - Labs Result Diagrams: 06/18/18 04:35 06/18/18 04:35 Labs: Laboratory Results - last 24 hr 06/17/18 06/17/18 06/18/18 15:41 17:46 04:35 WBC 10.4 RBC 2.93 L Hgb 9.3 L Hct 28.2 L MCV 96.5 H MCH 31.8 H MCHC 32.9 L RDW 13.6 Plt Count 171 MPV 10.5 Neut % (Auto) 82.2 H Lymph % (Auto) 9.0 L Coleman % (Auto) 7.3 Eos % (Auto) 1.1 Baso % (Auto) 0.4 Neut # (Auto) 8.5 H Lymph # (Auto) 0.9 L Coleman # (Auto) 0.8 Eos # (Auto) 0.1 Baso # (Auto) 0.0 pCO2 34 L pO2 131 H HCO3 26.5 ABG pH 7.48 H ABG Total CO2 26.3 ABG O2 Saturation 99.7 H ABG O2 Content 14.3 L ABG Base Excess 2.0 ABG Hemoglobin 10.4 L ABG Carboxyhemoglobin 1.7 H POC ABG HHb (Measured) 0.3 ABG Methemoglobin 1.6 ABG O2 Capacity 14.3 L Hieu Test Yes A-a O2 Difference 55.0 Hgb O2 Saturation 96.4 Liter Flow 3 Vent Mode Nc FiO2 32.0 Sodium Potassium Chloride Carbon Dioxide Anion Gap BUN Creatinine Est GFR ( Amer) Est GFR (Non-Af Amer) Random Glucose Calcium Total Bilirubin AST ALT Alkaline Phosphatase Total Protein Albumin Globulin Albumin/Globulin Ratio Urine Color Yellow Urine Clarity Slighty-cloudy Urine pH 6.0 Ur Specific [place] 1.010 Urine Protein 30 Urine Glucose (UA) Neg Urine Ketones Negative Urine Blood Moderate Urine Nitrate Negative Urine Bilirubin Negative Urine Urobilinogen 0.2-1.0 Ur Leukocyte Esterase Neg Urine RBC (Auto) 18 H Urine Bacteria Rare 06/18/18 04:35 WBC RBC Hgb Hct MCV MCH MCHC RDW Plt Count MPV Neut % (Auto) Lymph % (Auto) Coleman % (Auto) Eos % (Auto) Baso % (Auto) Neut # (Auto) Lymph # (Auto) Coleman # (Auto) Eos # (Auto) Baso # (Auto) pCO2 pO2 HCO3 ABG pH ABG Total CO2 ABG O2 Saturation ABG O2 Content ABG Base Excess ABG Hemoglobin ABG Carboxyhemoglobin POC ABG HHb (Measured) ABG Methemoglobin ABG O2 Capacity Hieu Test A-a O2 Difference Hgb O2 Saturation Liter Flow Vent Mode FiO2 Sodium 142 Potassium 4.6 Chloride 107 Carbon Dioxide 25 Anion Gap 15 BUN 23 H Creatinine 0.9 Est GFR ( Amer) > 60 Est GFR (Non-Af Amer) > 60 Random Glucose 90 Calcium 7.6 L Total Bilirubin 1.5 H AST 74 H D ALT 125 H D Alkaline Phosphatase 66 Total Protein 5.2 L Albumin 2.5 L Globulin 2.7 Albumin/Globulin Ratio 0.9 L Urine Color Urine Clarity Urine pH Ur Specific [place] Urine Protein Urine Glucose (UA) Urine Ketones Urine Blood Urine Nitrate Urine Bilirubin Urine Urobilinogen Ur Leukocyte Esterase Urine RBC (Auto) Urine Bacteria Microbiology 06/16/18 20:27 Blood-Venous Blood Culture - Preliminary NO GROWTH AFTER 24 HOURS 06/16/18 19:57 Urine,Coronel Urine Culture - Preliminary Gram Negative Hilario 06/16/18 19:57 Blood-Venous Blood Culture - Preliminary NO GROWTH AFTER 24 HOURS Accession No. : [id number] Patient Name / ID : JUANA ZAPATA / [id number] Exam Date : 06/16/2018 21:37:02 ( Approved ) Study Comment : Sex / Age : M / 63Y Creator : Armando Villa MD Dictator : Armando Villa MD Membership Counselor : Demand Generation Manager : Armando Villa MD Approver2 : Report Date : 06/17/2018 10:15:31 My Comment : Date of service: 06/16/2018 PROCEDURE: CT Abdomen and Pelvis with contrast HISTORY: postop prostate surg intractable vomit r/o obstrxn COMPARISON: CT scan of the abdomen and pelvis dated 11/24/2017 TECHNIQUE: Contrast dose: 95 mL Omnipaque 300 Radiation dose: Total exam DLP = 535.42 mGy-cm. This CT exam was performed using one or more of the following dose reduction techniques: Automated exposure control, adjustment of the mA and/or kV according to patient size, and/or use of iterative reconstruction technique. FINDINGS: LOWER THORAX: Cardiomegaly. Coronary arterial and valvular calcifications. Prior sternotomy. Prior cardiac valve replacement. Patchy bibasilar infiltrates. Trace right pleural effusion. LIVER: Innumerable small hypodensities scattered throughout the liver. GALLBLADDER AND BILE DUCTS: Distended with sludge and calcified gallstones. Gallbladder wall thickening with mild pericholecystic fluid. PANCREAS: Unremarkable. No gross lesion or ductal dilatation. SPLEEN: Unremarkable. ADRENALS: Unremarkable. No mass. KIDNEYS AND URETERS: Multiple left parapelvic cysts. No hydronephrosis. No solid mass. VASCULATURE: Unremarkable. No aortic aneurysm. No aortic atherosclerotic calcification or mural plaque present. BOWEL: Unremarkable. No obstruction. No gross mural thickening. APPENDIX: No findings to suggest acute appendicitis. PERITONEUM: Small amount of fluid in the right pericolic gutter and pelvis, likely postoperative. Small cystic structure measuring 2.9 x 1.5 cm along the right pelvic sidewall, likely representing lymphocele in the setting of recent pelvic surgery. Postsurgical changes along the anterior abdominal wall. No free air. LYMPH NODES: Unremarkable. No enlarged lymph nodes. BLADDER: Collapsed around a Coronel catheter. REPRODUCTIVE: Interval prostatectomy BONES: No acute fracture. OTHER FINDINGS: Filling defects within the right main pulmonary artery extending into the subsegmental branches. Filling defects seen within the segmental branches of the left pulmonary artery. Increased RV to LV ratio. IMPRESSION: Extensive bilateral pulmonary emboli with findings suggestive of right heart strain. Interval prostatectomy with small amount of adjacent postsurgical changes. Distended gallbladder with sludge and calcified gallstones as well as mild wall thickening and a trace amount of pericholecystic fluid. Findings are present acute cholecystitis in the appropriate clinical setting. Nuclear medicine hepatobiliary scan can better evaluate patency of the cystic duct. No evidence of bowel obstruction. Patchy bibasilar infiltrates with trace right pleural effusion. Additional stable findings as above. Accession No. : [id number] Patient Name / ID : JUANA ZAPATA / [id number] Exam Date : 06/16/2018 23:36:25 ( Approved ) Study Comment : Sex / Age : M / 63Y Creator : Armando Villa MD Dictator : Armando Villa MD Membership Counselor : Demand Generation Manager : Armando Villa MD Approver2 : Report Date : 06/17/2018 11:33:34 My Comment : Date of service: 06/16/2018 HISTORY: possible cholecystitis COMPARISON: CT scan of the abdomen and pelvis performed earlier the same day TECHNIQUE: Sonographic evaluation of the right upper quadrant of the abdomen. FINDINGS: LIVER: Measures 14.8 cm in length. Normal echogenicity of the liver parenchyma. No mass. No intrahepatic bile duct dilatation. Main portal vein demonstrates normal directional flow. GALLBLADDER: Cholelithiasis with gallbladder wall thickening/edema. Sonographic Márquez's sign was not elicited. COMMON BILE DUCT: Measures 4 mm. No stones. No dilatation. PANCREAS: Unremarkable as visualized. No mass. No ductal dilatation. RIGHT KIDNEY: Measures 11.5 x 4.3 x 4.8 cm in length. Normal echogenicity. No calculus, mass, or hydronephrosis. AORTA: No aneurysmal dilatation. IVC: Unremarkable. OTHER FINDINGS: None . IMPRESSION: Cholelithiasis with borderline wall thickening/edema. Sonographic Márquez's sign was not elicited. Findings are equivocal for acute cholecystitis. Nuclear medicine hepatobiliary scan can be obtained to further evaluate patency of the cystic duct. Accession No. : [id number] Patient Name / ID : JUANA ZAPATA / [id number] Exam Date : 06/17/2018 09:53:45 ( Approved ) Study Comment : Sex / Age : M / 63Y Creator : Armando Villa MD Dictator : Armando Villa MD Membership Counselor : Demand Generation Manager : Armando Villa MD Approver2 : Report Date : 06/17/2018 10:19:37 My Comment : Date of service: 06/17/2018 PROCEDURE: CT Chest with contrast (Pulmonary Angiogram) HISTORY: DYSPNEA, filling defect within R pulmonary Artery COMPARISON: None available. TECHNIQUE: Axial computed tomography images were obtained of the chest in the pulmonary arterial phase of enhancement. Coronal and sagittal reformatted images were created and reviewed. Intravenous contrast dose: 100 mL Visipaque 320 Radiation dose: Total exam DLP = 269.82 mGy-cm. This CT exam was performed using one or more of the following dose reduction techniques: Automated exposure control, adjustment of the mA and/or kV according to patient size, and/or use of iterative reconstruction technique. FINDINGS: PULMONARY ARTERIES: Extensive bilateral pulmonary emboli extending from the distal main bilateral pulmonary arteries into nearly all segmental and subsegmental branches. AORTA: No acute findings. Aberrant right subclavian artery. No thoracic aortic aneurysm. No aortic atherosclerotic calcification or mural plaque present. LUNGS: Patchy bibasal infiltrates. PLEURAL SPACES: Trace right pleural effusion. No pneumothorax. HEART: Cardiomegaly. Increased RV to LV ratio. Prior sternotomy. Prior cardiac valve replacement. No significant pericardial effusion. LYMPH NODES: No lymphadenopathy. BONES, CHEST WALL: Unremarkable. No fracture or destructive lesion OTHER FINDINGS: Unremarkable. IMPRESSION: Extensive bilateral pulmonary emboli as above described with CT evidence suggestive of right heart strain. Echocardiography is recommended for further evaluation. Patchy bibasilar infiltrates. Trace right pleural effusion. Assessment & Plan (1) Abdominal pain Status: Acute (2) PNA (pneumonia) Status: Acute (3) Pulmonary embolism, bilateral Status: Acute Priority: High - Assessment and Plan (Free Text) Assessment: A/P- 63 year old male with multiple medical conditions including CAD s/p CABG, CVA, recent prostatectomy on 06/06/2018 admitted with Nause/vomiting, abdominal pian and sob. found to have b/l pulmonary emboli and bibasilar patchy infiltrates along with cholecystitis and UTI most likely secondary to retained coronel since his surgery. had low grade fever. leukocytosis trending down + UA urine cx- GNR blood cx- neg x 2 Ct chest /abd reports noted. Plan- advise to f/u ID and sensitivity of the GNR in urine cx. in the interim advise to continue with IV zosyn to cover broad spectrum for gram neg since he had recent surgery and still has coronel in place. it would also cover for the cholecystitis. continue with vanco as well to cover for HAP along with the zosyn. keep trough <15. GI nad surgical f/u. eval. coronel would most likely need to be replaced . PE management as per primary team. all labs and imaging reviewed. All above also d/w patient and he verbalizes full understanding of all above. Thank you for allowing me to take part in the care of this patient.
--- NOTE | 2018-06-18 09:48 | CP.PCM.PN ---
Subjective - Date & Time of Evaluation Date of Evaluation: 06/18/18 Time of Evaluation: 07:05 - Subjective Subjective: General Surgery: [place] Patient seen and examined this am at bedside. No acute events overnight per nursing. Pt states his abdominal pain and n/v have improved. He is currently NPO awaiting HIDA and MRI today. 12 point ROS otherwise negative. Objective - Vital Signs/Intake and Output Vital Signs (last 24 hours): Temp Pulse Resp BP Pulse Ox 98.4 F 60 20 107/65 99 06/18/18 08:43 06/18/18 08:43 06/18/18 08:43 06/18/18 08:43 06/18/18 08:43 Intake and Output: 06/18/18 06/18/18 06:59 18:59 Intake Total 1600 Output Total 850 Balance 750 - Medications Medications: Current Medications Aspirin (Ecotrin) 81 mg PO DAILY [facility] Last Admin: 06/17/18 08:58 Dose: Not Given Atorvastatin Calcium (Lipitor) 40 mg PO DAILY [facility] Last Admin: 06/17/18 08:55 Dose: Not Given Enalapril Maleate (Vasotec) 2.5 mg PO BID [facility] Last Admin: 06/17/18 17:13 Dose: Not Given Enoxaparin Sodium (Lovenox) 70 mg SC Q12 [facility]; Protocol Last Admin: 06/17/18 21:37 Dose: 70 mg Famotidine (Pepcid) 40 mg IVP Q12 [facility] Last Admin: 06/17/18 21:33 Dose: 40 mg Folic Acid (Folic Acid) 1 mg PO DAILY [facility] Last Admin: 06/17/18 08:59 Dose: Not Given Lactated Ringer's (Lactated Ringer's) 1,000 mls @ 150 mls/hr IV .Q6H40M [facility] Last Admin: 06/18/18 07:02 Dose: 150 mls/hr Levetiracetam 500 mg/ Sodium (Chloride) 105 mls @ 210 mls/hr IVPB Q12 [facility] Last Admin: 06/17/18 21:38 Dose: 210 mls/hr Piperacillin Sod/Tazobactam (Sod 3.375 gm/ Sodium Chloride) 100 mls @ 100 mls/hr IVPB Q6 [facility]; Protocol Last Admin: 06/18/18 03:31 Dose: 100 mls/hr Vancomycin HCl 1 gm/ Sodium (Chloride) 250 mls @ 166.667 mls/hr IVPB Q12 [facility]; Protocol Last Admin: 06/17/18 21:48 Dose: 166.667 mls/hr Morphine Sulfate (Morphine) 2 mg IVP Q6 PRN PRN Reason: Pain, moderate (4-7) Last Admin: 06/17/18 18:10 Dose: 2 mg Morphine Sulfate (Morphine) 4 mg IVP Q6 PRN PRN Reason: Pain, severe (8-10) Ondansetron HCl (Zofran Inj) 4 mg IVP Q6 PRN PRN Reason: Nausea/Vomiting Last Admin: 06/17/18 03:08 Dose: 4 mg Oxybutynin Chloride (Ditropan Tab) 5 mg PO TID [facility] Last Admin: 06/17/18 17:13 Dose: Not Given Tamsulosin HCl (Flomax) 0.4 mg PO DAILY [facility] Last Admin: 06/17/18 08:58 Dose: Not Given - Labs Labs: 06/18/18 04:35 06/18/18 04:35 PT 15.4 Seconds (9.8-13.1) H 06/16/18 19:57 INR 1.4 06/16/18 19:57 APTT 30.8 Seconds (25.6-37.1) 06/16/18 19:57 - Constitutional Appears: Well, Non-toxic, No Acute Distress, Chronically Ill - Head Exam Head Exam: ATRAUMATIC, NORMOCEPHALIC - Eye Exam Eye Exam: EOMI - ENT Exam ENT Exam: Mucous Membranes Moist - Respiratory Exam Respiratory Exam: NORMAL BREATHING PATTERN - Cardiovascular Exam Cardiovascular Exam: REGULAR RHYTHM - GI/Abdominal Exam GI & Abdominal Exam: Distended, Soft. absent: Guarding, Tenderness, Rebound Additional comments: incisions cdi - Neurological Exam Neurological Exam: Alert, Awake, Oriented x3 - Psychiatric Exam Psychiatric exam: Normal Affect, Normal Mood - Skin Skin Exam: Dry, Intact, Normal Color, Warm Additional comments: incisions cdi Assessment and Plan - Assessment and Plan (Free Text) Assessment: 63 yr old male with PE and possible cholecystitis, POD 12 from Lap prostatectomy at [facility] Plan: - f/u HIDA results today - pt receiving Lovenox 70 BID fro PE treatment - may resume diet as tolerated after imaging - pain control - anti-emetics PRN - further recs per Dr. Venkat Sanchez, PGY 1
[2018-06-18] MEDS ORDERED: Chlorhexidine Gluconate 1 APPL/PKT TP ONE (10:23)
--- NOTE | 2018-06-18 10:47 | CP.PCM.PN ---
Objective - Vital Signs/Intake and Output Vital Signs (last 24 hours): Temp Pulse Resp BP Pulse Ox 98.4 F 60 20 107/65 99 06/18/18 08:43 06/18/18 08:43 06/18/18 08:43 06/18/18 08:43 06/18/18 08:43 Intake and Output: 06/18/18 06/18/18 06:59 18:59 Intake Total 1600 Output Total 850 Balance 750 - Medications Medications: Current Medications Aspirin (Ecotrin) 81 mg PO DAILY [facility] Last Admin: 06/17/18 08:58 Dose: Not Given Atorvastatin Calcium (Lipitor) 40 mg PO DAILY [facility] Last Admin: 06/17/18 08:55 Dose: Not Given Enalapril Maleate (Vasotec) 2.5 mg PO BID [facility] Last Admin: 06/17/18 17:13 Dose: Not Given Enoxaparin Sodium (Lovenox) 70 mg SC Q12 [facility]; Protocol Last Admin: 06/17/18 21:37 Dose: 70 mg Famotidine (Pepcid) 40 mg IVP Q12 [facility] Last Admin: 06/17/18 21:33 Dose: 40 mg Folic Acid (Folic Acid) 1 mg PO DAILY [facility] Last Admin: 06/17/18 08:59 Dose: Not Given Lactated Ringer's (Lactated Ringer's) 1,000 mls @ 150 mls/hr IV .Q6H40M [facility] Last Admin: 06/18/18 07:02 Dose: 150 mls/hr Levetiracetam 500 mg/ Sodium (Chloride) 105 mls @ 210 mls/hr IVPB Q12 [facility] Last Admin: 06/17/18 21:38 Dose: 210 mls/hr Piperacillin Sod/Tazobactam (Sod 3.375 gm/ Sodium Chloride) 100 mls @ 100 mls/hr IVPB Q6 [facility]; Protocol Last Admin: 06/18/18 03:31 Dose: 100 mls/hr Vancomycin HCl 1 gm/ Sodium (Chloride) 250 mls @ 166.667 mls/hr IVPB Q12 [facility]; Protocol Last Admin: 06/17/18 21:48 Dose: 166.667 mls/hr Morphine Sulfate (Morphine) 2 mg IVP Q6 PRN PRN Reason: Pain, moderate (4-7) Last Admin: 06/17/18 18:10 Dose: 2 mg Morphine Sulfate (Morphine) 4 mg IVP Q6 PRN PRN Reason: Pain, severe (8-10) Ondansetron HCl (Zofran Inj) 4 mg IVP Q6 PRN PRN Reason: Nausea/Vomiting Last Admin: 06/17/18 03:08 Dose: 4 mg Oxybutynin Chloride (Ditropan Tab) 5 mg PO TID [facility] Last Admin: 06/17/18 17:13 Dose: Not Given Tamsulosin HCl (Flomax) 0.4 mg PO DAILY [facility] Last Admin: 06/17/18 08:58 Dose: Not Given - Labs Labs: 06/18/18 04:35 06/18/18 04:35 PT 15.4 Seconds (9.8-13.1) H 06/16/18 19:57 INR 1.4 06/16/18 19:57 APTT 30.8 Seconds (25.6-37.1) 06/16/18 19:57
[2018-06-18] MEDS: levETIRAcetam 500 MG in Sodium Chloride 0.9% 100 ML IVPB SCH ×2 (11:07→21:28)
[2018-06-18] MEDS: Enoxaparin 80 mg Syringe SC SCH ×2 (11:12→21:30)
--- NOTE | 2018-06-18 15:38 | NM ---
Date of service: 06/17/2018 PROCEDURE: Nuclear Medicine Hepatobiliary Scan HISTORY: r/o cholecystitis COMPARISON: Abdomen ultrasound 06/16/2018. TECHNIQUE: 5.3 mCi of technetium 99m Mebrofenin was administered intravenously. Planar images of the abdomen were obtained at 5 min intervals to 60 mins. Delayed images were also obtained. FINDINGS: LIVER: Timely and homogenous uptake. COMMON BILE DUCT: identified at 10 mins. GALLBLADDER: identified at 10 mins. SMALL BOWEL: Identified at 15 mins. IMPRESSION: No nuclear evidence of cystic or common bile duct obstruction.
--- NOTE | 2018-06-18 15:49 | CP.PCM.PN ---
Subjective - Date & Time of Evaluation Date of Evaluation: 06/18/18 Time of Evaluation: 13:00 - Subjective Subjective: F/U PE No SOB, no CP. Objective - Vital Signs/Intake and Output Vital Signs (last 24 hours): Temp Pulse Resp BP Pulse Ox 98.5 F 77 20 112/71 95 06/18/18 13:00 06/18/18 13:00 06/18/18 13:00 06/18/18 13:00 06/18/18 14:34 Intake and Output: 06/18/18 06/18/18 06:59 18:59 Intake Total 1600 Output Total 850 Balance 750 - Medications Medications: Current Medications Aspirin (Ecotrin) 81 mg PO DAILY [facility] Last Admin: 06/18/18 13:39 Dose: Not Given Atorvastatin Calcium (Lipitor) 40 mg PO DAILY [facility] Last Admin: 06/18/18 13:38 Dose: Not Given Enalapril Maleate (Vasotec) 2.5 mg PO BID [facility] Last Admin: 06/17/18 17:13 Dose: Not Given Enoxaparin Sodium (Lovenox) 70 mg SC Q12 [facility]; Protocol Last Admin: 06/18/18 11:12 Dose: 70 mg Famotidine (Pepcid) 40 mg IVP Q12 [facility] Last Admin: 06/18/18 11:13 Dose: 40 mg Folic Acid (Folic Acid) 1 mg PO DAILY [facility] Last Admin: 06/18/18 13:38 Dose: Not Given Lactated Ringer's (Lactated Ringer's) 1,000 mls @ 150 mls/hr IV .Q6H40M [facility] Last Admin: 06/18/18 11:11 Dose: Not Given Levetiracetam 500 mg/ Sodium (Chloride) 105 mls @ 210 mls/hr IVPB Q12 [facility] Last Admin: 06/18/18 11:07 Dose: 210 mls/hr Piperacillin Sod/Tazobactam (Sod 3.375 gm/ Sodium Chloride) 100 mls @ 100 mls/hr IVPB Q6 [facility]; Protocol Last Admin: 06/18/18 11:14 Dose: 100 mls/hr Vancomycin HCl 1 gm/ Sodium (Chloride) 250 mls @ 166.667 mls/hr IVPB Q12 [facility]; Protocol Last Admin: 06/18/18 13:36 Dose: 166.667 mls/hr Morphine Sulfate (Morphine) 2 mg IVP Q6 PRN PRN Reason: Pain, moderate (4-7) Last Admin: 06/17/18 18:10 Dose: 2 mg Morphine Sulfate (Morphine) 4 mg IVP Q6 PRN PRN Reason: Pain, severe (8-10) Ondansetron HCl (Zofran Inj) 4 mg IVP Q6 PRN PRN Reason: Nausea/Vomiting Last Admin: 06/17/18 03:08 Dose: 4 mg Oxybutynin Chloride (Ditropan Tab) 5 mg PO TID [facility] Last Admin: 06/18/18 13:30 Dose: Not Given Tamsulosin HCl (Flomax) 0.4 mg PO DAILY [facility] Last Admin: 06/18/18 13:38 Dose: Not Given - Labs Labs: 06/18/18 04:35 06/18/18 04:35 PT 15.4 Seconds (9.8-13.1) H 06/16/18 19:57 INR 1.4 06/16/18 19:57 APTT 30.8 Seconds (25.6-37.1) 06/16/18 19:57 - Constitutional Appears: No Acute Distress, Chronically Ill - Head Exam Head Exam: NORMAL INSPECTION - Eye Exam Eye Exam: PERRL - ENT Exam ENT Exam: Normal Exam - Neck Exam Neck Exam: Normal Inspection - Respiratory Exam Respiratory Exam: Decreased Breath Sounds (at bases) - Cardiovascular Exam Cardiovascular Exam: REGULAR RHYTHM Additional comments: Mid chest old scar (from CABG) - GI/Abdominal Exam GI & Abdominal Exam: Tenderness (R-L lower quadrants. Robotic incisions scar healing well) - Exam Additional comments: Hood Cath - Extremities Exam Extremities Exam: Normal Inspection - Back Exam Back Exam: NORMAL INSPECTION - Neurological Exam Neurological Exam: Awake Additional comments: Forgetful, O x2, expressive aphasia. - Skin Skin Exam: Normal Color, Warm Assessment and Plan (1) Pulmonary embolism, bilateral Status: Acute (2) PNA (pneumonia) Status: Acute (3) Small pleural effusion Status: Acute - Assessment and Plan (Free Text) Plan: HIDA scan negative, continue Lovenox, Vanco, Zosyn and O2 NC
--- NOTE | 2018-06-18 16:19 | MRI ---
Date of service: 06/18/2018 PROCEDURE: MRI Abdomen without contrast HISTORY: COMPARISON: Abdomen pelvis CT 06/16/2018. Gallbladder/hepatic ultrasound 06/16/2018 TECHNIQUE: Multisequence, multiplanar MR images of the abdomen without gadolinium contrast enhancement. FINDINGS: LIVER: There are essentially innumerable fluid containing structure scattered throughout the left and right lobes with the vast majority under 1 cm size. These likely represent multiple tiny cysts. Lack of intravenous contrast limits ability to completely prove this. The largest is identified at the medial left lobe liver anteriorly measuring 1.6 x 1.2 cm. No significant intrahepatic biliary dilatation appreciable. GALLBLADDER: Gallbladder is distended with retained fluid sludge and a few calculi. No definite pericholecystic fluid collection is evident with the wall upper limits normal thickness. Normal caliber common bile duct. SPLEEN: No intrinsic mass is seen related to the spleen specifically. ADRENALS: Unremarkable. KIDNEYS: Multiple prominent extrarenal cysts are identified at the left kandi abdomen as demonstrated in prior abdomen pelvis CT noted above. PANCREAS: Unremarkable. AORTA: No aneurysm. ASCITES: None. PERITONEUM: Trace perisplenic and perihepatic ascites. Trace fluid is seen in the lateral flank subcutaneous fat bilaterally. LYMPH NODES: No gross lymphadenopathy appreciable. OTHER FINDINGS: None. IMPRESSION: 1. Similar pattern of gallbladder distension and cholelithiasis/sludge in the lumen identified currently as seen in CT and gallbladder/hepatic ultrasound dated 06/16/2018. No CVD or intrahepatic biliary duct dilatation appreciable nevertheless. Pancreatic duct is not dilated as well. 2. Lack images contrast limits evaluation of the solid abdominal viscera in particular, with essentially innumerable small likely cysts scattered throughout the liver with the largest measuring 1.6 cm greatest dimension. 3. Trace perihepatic and perisplenic ascites. 4. Left parapelvic cysts. Findings reviewed and discussed with Dr. White with written down and read back verification 06/18/2018 3:10 p.m..
--- NOTE | 2018-06-18 20:13 | CARD ---
APPROVED REPORT Date of service: 06/18/2018 EXAM: Two-dimensional and M-mode echocardiogram with Doppler and color Doppler. Other Information Quality : GoodRhythm : NSR INDICATION ICD: RV Function Surgery/Intervention Status/Post Mitral Valve Replacement: 2D DIMENSIONS IVSd0.84 (0.7-1.1cm)LVDd3.94 (3.9-5.9cm) LVOT Diameter2.22 (1.8-2.4cm)PWd1.12 (0.7-1.1cm) IVSs1.07 (0.8-1.2cm)LVDs3.36 (2.5-4.0cm) FS (%) 14.6 %PWs1.26 (0.8-1.2cm) M-Mode DIMENSIONS Left Atrium (MM)3.76 (2.5-4.0cm)IVSd0.71 (0.7-1.1cm) Aortic Root2.88 (2.2-3.7cm)LVDd4.65 (4.0-5.6cm) Aortic Cusp Exc.2.09 (1.5-2.0cm)PWd0.79 (0.7-1.1cm) IVSs1.12 cmFS (%) 32 % LVDs3.18 (2.0-3.8cm)PWs1.06 cm Aortic Valve AoV Peak Ifizflno633.4cm/sAoV VTI20.1cmAO Peak GR.5mmHg LVOT Peak Jzsmkyde65.6cm/sLVOT VTI16.62cmAO Mean GR.3mmHg DORA (VMAX)1.89gr0CGF (VTI)1.81cm2 Mitral Valve MV E Czovoiad071.5cm/sMV DECEL FDQI150bfFT A Uihixsve135.4cm/s MV MFH59poZ/A ratio1.6MVA (PHT)2.25cm2 TDI E/Lateral E'0.0E/Medial E'0.0 LEFT VENTRICLE The left ventricle is normal size. There is normal left ventricular wall thickness. The LV systolic function is low normal. The estimated ejection fraction is 50-55% There is normal LV segmental wall motion. Transmitral Doppler flow pattern is Grade II-pseudonormal filling dynamics. No left ventricle thrombus noted on this study. There is no ventricular septal defect visualized. There is no left ventricular aneurysm. There is no mass noted in the left ventricle. RIGHT VENTRICLE The right ventricle is mildly dilated. There is normal right ventricular wall thickness. The right ventricular systolic function is normal. ATRIA The left atrium is mildly dilated. The right atrium size is normal. The interatrial septum is intact with no evidence for an atrial septal defect. AORTIC VALVE The aortic valve is normal in structure. No aortic regurgitation is present. There is no aortic valvular stenosis. There is no aortic valvular vegetation. MITRAL VALVE The posterior mitral valve leaftlet motion is restricted. There is no evidence of mitral valve prolapse. There is no mitral valve stenosis. There is mild mitral valve regurgitation noted. TRICUSPID VALVE The tricuspid valve is normal in structure. There is mild tricuspid valve regurgitation noted. RVSP is calculated at 20 mm Hg. There is no tricuspid valve prolapse or vegetation. There is no tricuspid valve stenosis. PULMONIC VALVE The pulmonary valve is normal in structure. There is no pulmonic valvular regurgitation. There is no pulmonic valvular stenosis. GREAT VESSELS The aortic root is normal in size. The ascending aorta is normal in size. The pulmonary artery is normal. The IVC is normal in size and collapses >50% with inspiration. PERICARDIAL EFFUSION There is no pericardial effusion. There is no pleural effusion. <Conclusion> The LV systolic function is low normal. The estimated ejection fraction is 50-55% Transmitral Doppler flow pattern is Grade II-pseudonormal filling dynamics. The right ventricle is mildly dilated. The right ventricular systolic function is normal. The left atrium is mildly dilated. The posterior mitral valve leaftlet motion is restricted. There is mild mitral valve regurgitation noted. There is mild tricuspid valve regurgitation noted. RVSP is calculated at 20 mm Hg.
--- NOTE | 2018-06-18 21:35 | CON ---
DATE: 06/18/2018 TIME OF CONSULTATION: Roughly 10:45 a.m. BRIEF HISTORY: The patient is a 63-year-old male with a history of elevated PSA for 3-4 years and finally underwent a radical robotic prostatectomy with Dr. Salazar in [facility] in [facility] on 06/06/2018 for diagnosis of prostate cancer. The patient was discharged home with an indwelling Hood catheter and was supposed to follow up with Dr. Salazar on 06/15/2018 but developed fever, chills, nausea and vomiting episodes and abdominal pain. The patient was brought to [facility] ER and was found to have urosepsis and possible acute cholecystitis. The patient also has a possible pulmonary embolism. The patient is currently on IV antibiotics and his urine C and S was positive for Gram-negative rods. His blood cultures so far has shown no growth. Prior to surgery, he was voiding with his usual normal urinary stream. No history of any kidney disease or kidney stones. PAST MEDICAL HISTORY: The patient also has a past medical history of residual expressive aphasia, coronary artery disease, status post coronary bypass graft, hypertension and hyperlipidemia. PAST SURGICAL HISTORY: Includes only heart surgery for coronary artery disease and robotic radical prostatectomy for prostate cancer. FAMILY HISTORY: Negative for prostate cancer. SOCIAL HISTORY: No history of any tobacco use and he is only a social drinker. ALLERGIES: NO KNOWN ALLERGIES TO ANY MEDICATIONS. PHYSICAL EXAMINATION: VITAL SIGNS: On 06/18/2018 show a temperature of 98.4, pulse rate of 60, blood pressure 107/65, respiratory rate 20 and O2 saturation on nasal cannula 99%. HEENT: Grossly within normal limits. NECK: Supple. Thyroid is not palpable. ABDOMEN: Soft. Not distended but left quadrant tenderness where he has fresh wounds and also robotic cannula incision sites. GENITOURINARY: He has a Hood catheter draining mauricio urine well at this hour. LABORATORY DATA: His laboratory evaluation today, 06/18/2018 shows a CBC with a WBC count of 10.4, hemoglobin of 9.3 and hematocrit of 28.2 with a platelet count of 171,000. His chemistry profile shows a sodium of 142, potassium 4.6, chloride 107, CO2 of 25. BUN and creatinine of 23 and 0.9 respectively with a GFR of greater than 60. Random glucose is 90. Total bilirubin is 1.5. AST 74, ALT 125, alkaline phosphatase 66. Urinalysis on 06/17/2018 shows the color was yellow, a color that was slightly cloudy, pH 6, specific gravity 1.010, protein 30, glucose and ketones both negative, moderate blood, nitrite negative, bilirubin negative, leukocyte esterase negative, 18 rbc's with rare bacteria per high-power field. DIAGNOSTIC IMPRESSION: 1. Possible urosepsis. 2. Possible sepsis from other causes such as cholecystitis. 3. Possible pulmonary embolism. PLAN: Plan for this patient is to, as discussed with the patient, maintain his Hood catheter during this hospitalization and the catheter can be removed by his urologist at [facility], Dr. Salazar, after this patient is completely stable. Sean Steen MD
[2018-06-19] MEDS: Piperacillin/Tazobact 3.375 GM in Sodium Chloride 0.9% 100 ML IVPB SCH ×2 (03:30→10:30)
[2018-06-19 05:46] LABS: ALB/GLOB RATIO 0.9 (1.0-2.1); ALBUMIN 2.5 g/dL (3.5-5.0); ALT/SGPT 108 U/L (21-72); AST/SGOT 47 U/L (17-59); BLOOD UREA NITROGEN 18 mg/dl (9-20); CALCIUM 7.9 mg/dL (8.4-10.2); GFR NON-AFRICAN AMERICAN > 60
[2018-06-19 05:55] LABS: BASO # 0.1 K/uL (0.0-0.2); BASO % 0.6 % (0.0-2.0); EOS # 0.1 K/uL (0.0-0.7); EOS % 0.5 % (0.0-4.0); HEMOGLOBIN 9.4 g/dL (12.0-18.0); LYMPH # 0.6 K/uL (1.0-4.3); LYMPH % 5.7 % (20.0-40.0); MEAN CELL VOLUME 95.2 fl (80.0-94.0); MEAN CORPUSCULAR HEMOGLOBIN 32.3 pg (27.0-31.0); MEAN PLATELET VOLUME 10.4 fl (7.2-11.7); MONO # 0.7 K/uL (0.0-0.8); MONO % 6.3 % (0.0-10.0); NEUT # 9.6 K/uL (1.8-7.0); NEUT % 86.9 % (50.0-75.0); NRBC % 0.1 % (0.0-0.0); RBC 2.92 Mil/uL (4.40-5.90); RED CELL DISTRIBUTION WIDTH 13.4 % (11.5-14.5)
[2018-06-19] MEDS: Enoxaparin 80 mg Syringe SC SCH ×2 (08:13→21:11)
--- NOTE | 2018-06-19 08:15 | CP.PCM.PN ---
Subjective - Date & Time of Evaluation Date of Evaluation: 06/19/18 Time of Evaluation: 08:10 - Subjective Subjective: General Surgery Progress Note: Dr. Robledo 63 year old male patient seen and examined at bedside, resting comfortably and in NAD. Per nursing, no acute events overnight. Patient reports improvement in abdominal pain over the past two days. Denies nausea/vomiting/fever. Objective - Vital Signs/Intake and Output Vital Signs (last 24 hours): Temp Pulse Resp BP Pulse Ox 98.3 F 83 18 110/70 93 L 06/19/18 07:51 06/19/18 07:51 06/19/18 07:51 06/19/18 07:51 06/19/18 07:51 - Medications Medications: Current Medications Aspirin (Ecotrin) 81 mg PO DAILY [facility] Last Admin: 06/18/18 13:39 Dose: Not Given Atorvastatin Calcium (Lipitor) 40 mg PO DAILY [facility] Last Admin: 06/18/18 13:38 Dose: Not Given Enalapril Maleate (Vasotec) 2.5 mg PO BID [facility] Last Admin: 06/18/18 17:03 Dose: Not Given Enoxaparin Sodium (Lovenox) 70 mg SC Q12 [facility]; Protocol Last Admin: 06/18/18 21:30 Dose: 70 mg Famotidine (Pepcid) 40 mg IVP Q12 [facility] Last Admin: 06/18/18 21:34 Dose: 40 mg Folic Acid (Folic Acid) 1 mg PO DAILY [facility] Last Admin: 06/18/18 13:38 Dose: Not Given Lactated Ringer's (Lactated Ringer's) 1,000 mls @ 150 mls/hr IV .Q6H40M [facility] Last Admin: 06/18/18 18:34 Dose: Not Given Levetiracetam 500 mg/ Sodium (Chloride) 105 mls @ 210 mls/hr IVPB Q12 [facility] Last Admin: 06/18/18 21:28 Dose: 210 mls/hr Piperacillin Sod/Tazobactam (Sod 3.375 gm/ Sodium Chloride) 100 mls @ 100 mls/hr IVPB Q6 [facility]; Protocol Last Admin: 06/19/18 03:30 Dose: 100 mls/hr Vancomycin HCl 1 gm/ Sodium (Chloride) 250 mls @ 166.667 mls/hr IVPB Q12 [facility]; Protocol Last Admin: 06/18/18 20:00 Dose: 166.667 mls/hr Morphine Sulfate (Morphine) 2 mg IVP Q6 PRN PRN Reason: Pain, moderate (4-7) Last Admin: 06/17/18 18:10 Dose: 2 mg Morphine Sulfate (Morphine) 4 mg IVP Q6 PRN PRN Reason: Pain, severe (8-10) Ondansetron HCl (Zofran Inj) 4 mg IVP Q6 PRN PRN Reason: Nausea/Vomiting Last Admin: 06/17/18 03:08 Dose: 4 mg Oxybutynin Chloride (Ditropan Tab) 5 mg PO TID [facility] Last Admin: 06/18/18 17:04 Dose: Not Given Tamsulosin HCl (Flomax) 0.4 mg PO DAILY [facility] Last Admin: 06/18/18 13:38 Dose: Not Given - Labs Labs: 06/19/18 04:45 06/19/18 04:45 PT 15.4 Seconds (9.8-13.1) H 06/16/18 19:57 INR 1.4 06/16/18 19:57 APTT 30.8 Seconds (25.6-37.1) 06/16/18 19:57 - Constitutional Appears: Non-toxic, No Acute Distress - Head Exam Head Exam: ATRAUMATIC, NORMOCEPHALIC - Eye Exam Eye Exam: Normal appearance - ENT Exam ENT Exam: Mucous Membranes Moist - Respiratory Exam Respiratory Exam: NORMAL BREATHING PATTERN - Cardiovascular Exam Cardiovascular Exam: REGULAR RHYTHM - GI/Abdominal Exam GI & Abdominal Exam: Soft Additional comments: Surgical incisions clean/dry/intact - Extremities Exam Extremities Exam: Normal Capillary Refill. absent: Calf Tenderness - Neurological Exam Neurological Exam: Alert, Awake - Psychiatric Exam Psychiatric exam: Normal Affect, Normal Mood - Skin Skin Exam: Warm Assessment and Plan - Assessment and Plan (Free Text) Assessment: 63 year old male patient with cholecystitis and PE, POD#13 Lap prostatectomy at [place] Plan: - GI/Hepatic Diet - HIDA; No nuclear evidence of cystic or common bile duct obstruction - AST/ALT trending down - C/w therapeutic Lovenox - C/w IV antibiotics - Zofran and PPI PRN - Pain control - Further recs per Dr. Venkat Oviedo PGY 1
[2018-06-19] MEDS: Lactated Ringer's 1,000 ML IV SCH ×2 (08:19→21:21)
[2018-06-19] MEDS: levETIRAcetam 500 MG in Sodium Chloride 0.9% 100 ML IVPB SCH ×2 (08:19→21:07)
--- NOTE | 2018-06-19 08:40 | CP.PCM.PN ---
Subjective - Date & Time of Evaluation Date of Evaluation: 06/19/18 Time of Evaluation: 08:40 - Subjective Subjective: Patient seen and examined at bedside. Today, patient is tolerating a full diet and states he has had appetite for the past few days. Reports mild pain where the coronel catheter is in place. Complains of lower abdominal pain, mostly around surgical incision in the left lower quadrant and umbilicus. Reports dyspnea that he has had since admission. Denies nausea, vomiting, diarrhea, headaches, changes in vision. No overnight events. Normal sinus rhythm on tele monitor. Objective - Vital Signs/Intake and Output Vital Signs (last 24 hours): Temp Pulse Resp BP Pulse Ox 98.3 F 83 18 110/70 93 L 06/19/18 07:51 06/19/18 07:51 06/19/18 07:51 06/19/18 07:51 06/19/18 07:51 - Medications Medications: Current Medications Aspirin (Ecotrin) 81 mg PO DAILY [facility] Last Admin: 06/19/18 08:21 Dose: Not Given Atorvastatin Calcium (Lipitor) 40 mg PO DAILY [facility] Last Admin: 06/19/18 08:21 Dose: Not Given Enalapril Maleate (Vasotec) 2.5 mg PO BID [facility] Last Admin: 06/19/18 08:21 Dose: Not Given Enoxaparin Sodium (Lovenox) 70 mg SC Q12 [facility]; Protocol Last Admin: 06/19/18 08:13 Dose: 70 mg Famotidine (Pepcid) 40 mg IVP Q12 [facility] Last Admin: 06/19/18 08:14 Dose: 40 mg Folic Acid (Folic Acid) 1 mg PO DAILY [facility] Last Admin: 06/19/18 08:21 Dose: Not Given Lactated Ringer's (Lactated Ringer's) 1,000 mls @ 150 mls/hr IV .Q6H40M [facility] Last Admin: 06/19/18 08:19 Dose: 150 mls/hr Levetiracetam 500 mg/ Sodium (Chloride) 105 mls @ 210 mls/hr IVPB Q12 [facility] Last Admin: 06/19/18 08:19 Dose: 210 mls/hr Piperacillin Sod/Tazobactam (Sod 3.375 gm/ Sodium Chloride) 100 mls @ 100 mls/hr IVPB Q6 [facility]; Protocol Last Admin: 06/19/18 03:30 Dose: 100 mls/hr Vancomycin HCl 1 gm/ Sodium (Chloride) 250 mls @ 166.667 mls/hr IVPB Q12 [facility]; Protocol Last Admin: 06/19/18 08:20 Dose: 166.667 mls/hr Morphine Sulfate (Morphine) 2 mg IVP Q6 PRN PRN Reason: Pain, moderate (4-7) Last Admin: 06/17/18 18:10 Dose: 2 mg Morphine Sulfate (Morphine) 4 mg IVP Q6 PRN PRN Reason: Pain, severe (8-10) Ondansetron HCl (Zofran Inj) 4 mg IVP Q6 PRN PRN Reason: Nausea/Vomiting Last Admin: 06/17/18 03:08 Dose: 4 mg Oxybutynin Chloride (Ditropan Tab) 5 mg PO TID [facility] Last Admin: 06/19/18 08:22 Dose: Not Given Tamsulosin HCl (Flomax) 0.4 mg PO DAILY [facility] Last Admin: 06/19/18 08:21 Dose: Not Given - Labs Labs: 06/19/18 04:45 06/19/18 04:45 PT 15.4 Seconds (9.8-13.1) H 06/16/18 19:57 INR 1.4 06/16/18 19:57 APTT 30.8 Seconds (25.6-37.1) 06/16/18 19:57 - Constitutional Appears: Non-toxic, No Acute Distress, Older Than Stated Age, Chronically Ill - Eye Exam Eye Exam: Normal appearance - ENT Exam ENT Exam: Mucous Membranes Moist - Respiratory Exam Respiratory Exam: Decreased Breath Sounds (Decreased breath sound bilateral lower lung huitron.), NORMAL BREATHING PATTERN. absent: Accessory Muscle Use, Chest Wall Tenderness, Prolonged Expiratory Phase, Rales, Rhonchi, Wheezes, Respiratory Distress, Stridor - Cardiovascular Exam Cardiovascular Exam: +S1, +S2. absent: Diastolic murmur, JVD, Murmur - GI/Abdominal Exam GI & Abdominal Exam: Distended, Soft, Tenderness (Tenderness noted in lower left abdominal incision site and umbilical site. Non-erythematous, no drainage from sites.), Hypoactive Bowel Sounds. absent: Firm, Guarding, Rigid, Rebound - Exam Additional comments: Coronel catheter in place - Extremities Exam Extremities Exam: Normal Capillary Refill, Normal Inspection. absent: Calf Tenderness, Pedal Edema, Tenderness - Neurological Exam Neurological Exam: Alert, Awake Additional comments: Expressive aphasia - Psychiatric Exam Psychiatric exam: Normal Affect, Normal Mood - Skin Skin Exam: Dry, Intact, Normal Color, Warm Assessment and Plan - Assessment and Plan (Free Text) Assessment: 63 y/o male with PMH CABG , CVA with residual expressive aphasia, HTN,prostate CA s/p recent surgery 06/06/18 with indwelling Coronel catheter , presented with nausea, vomiting , abdominal pain and some dyspnea admitted for further management of sepsis and found to have acute cholecystitis, bilateral Pulmonary embolisms, bilateral pneumonia, and complicated UTI with gram neg rods. 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 Pt's urologist at [facility] was contacted and informed. 3. Cholelithiasis and acute cholecystitis CT abd showed no obstruction T.bili: normalized; LFT's trending down. GI and surgery consulted MRI: Gallbladder distension & cholithiasis/sludge in lumen, no CVD or intrahepatic biliary duct dilatation. Pancreatic duct not dilated. HIDA scan: No nuclear evidence of cystic or common bile duct obstruction Pain management with Morphine PPI and Zofran PRN Continue Hepatic diet at this time Continue IV antibiotics (Vanco and Zosyn) 4. Bilateral Pneumonia Continue IV antibiotics Vanco and Zosyn 5.Suspected UTI s/p robotic prostate surgery for prostate Ca with indwelling coronel catheter at [place] by Dr. Salazar Urine cultures: resulted Burkholdia cepacia and E.Faecalis Urology consult appreciated and case discussed . Will leave Coronel in due to high risk of bleeding Continue Zosyn IV called and informed PA of Dr. Salazar about patient's condition 6. Prostate CA - s/p recent surgery 06/06/18 at [facility] will need to follow up with his urologist upon discharge continue Flomax at this time 7. Hypertension stable On Low dose Enalapril 8. CVA with residual expressive aphasia Continue ASA, statin , follow BP control 9 CAD s/p CABG resume ASA, statin and BP control
--- NOTE | 2018-06-19 12:04 | CP.PCM.PN ---
Subjective - Date & Time of Evaluation Date of Evaluation: 06/19/18 Time of Evaluation: 12:04 - Subjective Subjective: ID Note- Patient seen and examined today. Patient states he feels better. denies any nausea or any fever. states his abdominal pian has resolved. Objective - Vital Signs/Intake and Output Vital Signs (last 24 hours): Temp Pulse Resp BP Pulse Ox 98.3 F 95 H 18 110/70 94 L 06/19/18 07:51 06/19/18 11:01 06/19/18 07:51 06/19/18 07:51 06/19/18 11:01 - Medications Medications: Current Medications Aspirin (Ecotrin) 81 mg PO DAILY [facility] Last Admin: 06/19/18 08:21 Dose: Not Given Atorvastatin Calcium (Lipitor) 40 mg PO DAILY [facility] Last Admin: 06/19/18 08:21 Dose: Not Given Enalapril Maleate (Vasotec) 2.5 mg PO BID [facility] Last Admin: 06/19/18 08:21 Dose: Not Given Enoxaparin Sodium (Lovenox) 70 mg SC Q12 [facility]; Protocol Last Admin: 06/19/18 08:13 Dose: 70 mg Famotidine (Pepcid) 40 mg IVP Q12 [facility] Last Admin: 06/19/18 08:14 Dose: 40 mg Folic Acid (Folic Acid) 1 mg PO DAILY [facility] Last Admin: 06/19/18 08:21 Dose: Not Given Lactated Ringer's (Lactated Ringer's) 1,000 mls @ 150 mls/hr IV .Q6H40M [facility] Last Admin: 06/19/18 08:19 Dose: 150 mls/hr Levetiracetam 500 mg/ Sodium (Chloride) 105 mls @ 210 mls/hr IVPB Q12 [facility] Last Admin: 06/19/18 08:19 Dose: 210 mls/hr Piperacillin Sod/Tazobactam (Sod 3.375 gm/ Sodium Chloride) 100 mls @ 100 mls/hr IVPB Q6 [facility]; Protocol Last Admin: 06/19/18 10:30 Dose: 100 mls/hr Vancomycin HCl 1 gm/ Sodium (Chloride) 250 mls @ 166.667 mls/hr IVPB Q12 [facility]; Protocol Last Admin: 06/19/18 08:20 Dose: 166.667 mls/hr Meropenem 500 mg/ Sodium (Chloride) 100 mls @ 100 mls/hr IVPB Q8 [facility]; Protocol Morphine Sulfate (Morphine) 2 mg IVP Q6 PRN PRN Reason: Pain, moderate (4-7) Last Admin: 06/17/18 18:10 Dose: 2 mg Morphine Sulfate (Morphine) 4 mg IVP Q6 PRN PRN Reason: Pain, severe (8-10) Ondansetron HCl (Zofran Inj) 4 mg IVP Q6 PRN PRN Reason: Nausea/Vomiting Last Admin: 06/17/18 03:08 Dose: 4 mg Oxybutynin Chloride (Ditropan Tab) 5 mg PO TID [facility] Last Admin: 06/19/18 08:22 Dose: Not Given Tamsulosin HCl (Flomax) 0.4 mg PO DAILY [facility] Last Admin: 06/19/18 08:21 Dose: Not Given - Labs Labs: - Additional Findings Additional findings: - Constitutional Appears: No Acute Distress - Head Exam Head Exam: ATRAUMATIC - Eye Exam Eye Exam: EOMI, PERRL - ENT Exam ENT Exam: Normal Oropharynx - Neck Exam Neck exam: Positive for: Full Rom - Respiratory Exam Respiratory Exam: NORMAL BREATHING PATTERN Additional comments: no wheezing decreased breath sounds at bases - Cardiovascular Exam Cardiovascular Exam: RRR, +S1, +S2 - GI/Abdominal Exam Additional comments: few small incisions noted on the abdomen form his surgery and on the left abdominal region no tenderness today No distension + BS - Exam Additional comments: coronel in place has dark urine - Extremities Exam Extremities exam: Positive for: normal inspection - Neurological Exam Neurological exam: Alert, Oriented x 3 Laboratory Results - last 72 hr 06/16/18 06/16/18 06/16/18 19:57 19:57 19:57 WBC 18.4 H RBC 3.91 L Hgb 12.1 D Hct 37.0 MCV 94.6 H MCH 30.9 MCHC 32.7 L RDW 13.2 Plt Count 204 MPV 10.4 Neut % (Auto) 88.0 H Lymph % (Auto) 4.5 L [place] % (Auto) 7.0 Eos % (Auto) 0.2 Baso % (Auto) 0.3 Neut # (Auto) 16.2 H Lymph # (Auto) 0.8 L [place] # (Auto) 1.3 H Eos # (Auto) 0.0 Baso # (Auto) 0.1 Neutrophils % (Manual) 90 H Lymphocytes % (Manual) 5 L Monocytes % (Manual) 5 Platelet Estimate Normal Large Platelets Present PT 15.4 H INR 1.4 APTT 30.8 pCO2 pO2 HCO3 ABG pH ABG Total CO2 ABG O2 Saturation ABG O2 Content ABG Base Excess ABG Hemoglobin ABG Carboxyhemoglobin POC ABG HHb (Measured) ABG Methemoglobin ABG O2 Capacity Hieu Test VBG pH VBG pCO2 VBG HCO3 VBG Total CO2 VBG O2 Sat (Calc) VBG Base Excess VBG Potassium A-a O2 Difference Hgb O2 Saturation Glucose Lactate Liter Flow Vent Mode FiO2 Sodium 144 Potassium 4.3 Chloride 107 Carbon Dioxide 25 Anion Gap 16 BUN 22 H Creatinine 0.8 Est GFR ( Amer) > 60 Est GFR (Non-Af Amer) > 60 Random Glucose 129 H Calcium 9.1 Total Bilirubin 1.8 H AST 184 H D ALT 194 H D Alkaline Phosphatase 97 Total Protein 6.6 Albumin 3.5 Globulin 3.1 Albumin/Globulin Ratio 1.1 Lipase 125 Venous Blood Potassium Urine Color Urine Clarity Urine pH Ur Specific [place] Urine Protein Urine Glucose (UA) Urine Ketones Urine Blood Urine Nitrate Urine Bilirubin Urine Urobilinogen Ur Leukocyte Esterase Urine RBC (Auto) Urine Microscopic WBC Amorphous Sediment Urine Bacteria Blood Type Antibody Screen BBK History Checked 06/16/18 06/16/18 06/16/18 19:57 19:57 20:09 WBC RBC Hgb Hct MCV MCH MCHC RDW Plt Count MPV Neut % (Auto) Lymph % (Auto) [place] % (Auto) Eos % (Auto) Baso % (Auto) Neut # (Auto) Lymph # (Auto) [place] # (Auto) Eos # (Auto) Baso # (Auto) Neutrophils % (Manual) Lymphocytes % (Manual) Monocytes % (Manual) Platelet Estimate Large Platelets PT INR APTT pCO2 pO2 29 L HCO3 ABG pH ABG Total CO2 ABG O2 Saturation ABG O2 Content ABG Base Excess ABG Hemoglobin ABG Carboxyhemoglobin POC ABG HHb (Measured) ABG Methemoglobin ABG O2 Capacity Hieu Test VBG pH 7.49 H VBG pCO2 33 L VBG HCO3 25.7 VBG Total CO2 26.1 VBG O2 Sat (Calc) 58.6 VBG Base Excess 2.2 H VBG Potassium 4.4 A-a O2 Difference Hgb O2 Saturation Glucose 131 H Lactate 1.7 Liter Flow Vent Mode FiO2 21.0 Sodium 142.0 Potassium Chloride 108.0 H Carbon Dioxide Anion Gap BUN Creatinine Est GFR ( Amer) Est GFR (Non-Af Amer) Random Glucose Calcium Total Bilirubin AST ALT Alkaline Phosphatase Total Protein Albumin Globulin Albumin/Globulin Ratio Lipase Venous Blood Potassium 4.4 Urine Color Ronna Urine Clarity Cloudy Urine pH 7.0 Ur Specific [place] 1.024 Urine Protein 100 Urine Glucose (UA) Neg Urine Ketones Trace Urine Blood Large Urine Nitrate Negative Urine Bilirubin Negative Urine Urobilinogen 0.2-1.0 Ur Leukocyte Esterase Mod Urine RBC (Auto) 250 H Urine Microscopic WBC 42 H Amorphous Sediment Rare H Urine Bacteria Large Blood Type A POSITIVE Antibody Screen Negative BBK History Checked Patient has bt 06/17/18 06/17/18 06/17/18 05:19 05:19 15:41 WBC 15.8 H RBC 3.29 L Hgb 10.4 L Hct 31.3 L MCV 95.4 H MCH 31.5 H MCHC 33.1 RDW 13.4 Plt Count 158 MPV 10.6 Neut % (Auto) 86.2 H Lymph % (Auto) 5.9 L [place] % (Auto) 7.6 Eos % (Auto) 0.1 Baso % (Auto) 0.2 Neut # (Auto) 13.6 H Lymph # (Auto) 0.9 L [place] # (Auto) 1.2 H Eos # (Auto) 0.0 Baso # (Auto) 0.0 Neutrophils % (Manual) Lymphocytes % (Manual) Monocytes % (Manual) Platelet Estimate Large Platelets PT INR APTT pCO2 34 L pO2 131 H HCO3 26.5 ABG pH 7.48 H ABG Total CO2 26.3 ABG O2 Saturation 99.7 H ABG O2 Content 14.3 L ABG Base Excess 2.0 ABG Hemoglobin 10.4 L ABG Carboxyhemoglobin 1.7 H POC ABG HHb (Measured) 0.3 ABG Methemoglobin 1.6 ABG O2 Capacity 14.3 L Hieu Test Yes VBG pH VBG pCO2 VBG HCO3 VBG Total CO2 VBG O2 Sat (Calc) VBG Base Excess VBG Potassium A-a O2 Difference 55.0 Hgb O2 Saturation 96.4 Glucose Lactate Liter Flow 3 Vent Mode Nc FiO2 32.0 Sodium 142 Potassium 4.3 Chloride 110 H Carbon Dioxide 24 Anion Gap 12 BUN 20 Creatinine 0.9 Est GFR ( Amer) > 60 Est GFR (Non-Af Amer) > 60 Random Glucose 112 H Calcium 8.2 L Total Bilirubin 1.6 H AST 107 H D ALT 167 H Alkaline Phosphatase 78 Total Protein 5.5 L Albumin 2.8 L Globulin 2.7 Albumin/Globulin Ratio 1.0 Lipase Venous Blood Potassium Urine Color Urine Clarity Urine pH Ur Specific [place] Urine Protein Urine Glucose (UA) Urine Ketones Urine Blood Urine Nitrate Urine Bilirubin Urine Urobilinogen Ur Leukocyte Esterase Urine RBC (Auto) Urine Microscopic WBC Amorphous Sediment Urine Bacteria Blood Type Antibody Screen BBK History Checked 06/17/18 06/18/18 06/18/18 17:46 04:35 04:35 WBC 10.4 RBC 2.93 L Hgb 9.3 L Hct 28.2 L MCV 96.5 H MCH 31.8 H MCHC 32.9 L RDW 13.6 Plt Count 171 MPV 10.5 Neut % (Auto) 82.2 H Lymph % (Auto) 9.0 L [place] % (Auto) 7.3 Eos % (Auto) 1.1 Baso % (Auto) 0.4 Neut # (Auto) 8.5 H Lymph # (Auto) 0.9 L [place] # (Auto) 0.8 Eos # (Auto) 0.1 Baso # (Auto) 0.0 Neutrophils % (Manual) Lymphocytes % (Manual) Monocytes % (Manual) Platelet Estimate Large Platelets PT INR APTT pCO2 pO2 HCO3 ABG pH ABG Total CO2 ABG O2 Saturation ABG O2 Content ABG Base Excess ABG Hemoglobin ABG Carboxyhemoglobin POC ABG HHb (Measured) ABG Methemoglobin ABG O2 Capacity Hieu Test VBG pH VBG pCO2 VBG HCO3 VBG Total CO2 VBG O2 Sat (Calc) VBG Base Excess VBG Potassium A-a O2 Difference Hgb O2 Saturation Glucose Lactate Liter Flow Vent Mode FiO2 Sodium 142 Potassium 4.6 Chloride 107 Carbon Dioxide 25 Anion Gap 15 BUN 23 H Creatinine 0.9 Est GFR ( Amer) > 60 Est GFR (Non-Af Amer) > 60 Random Glucose 90 Calcium 7.6 L Total Bilirubin 1.5 H AST 74 H D ALT 125 H D Alkaline Phosphatase 66 Total Protein 5.2 L Albumin 2.5 L Globulin 2.7 Albumin/Globulin Ratio 0.9 L Lipase Venous Blood Potassium Urine Color Yellow Urine Clarity Slighty-cloudy Urine pH 6.0 Ur Specific [place] 1.010 Urine Protein 30 Urine Glucose (UA) Neg Urine Ketones Negative Urine Blood Moderate Urine Nitrate Negative Urine Bilirubin Negative Urine Urobilinogen 0.2-1.0 Ur Leukocyte Esterase Neg Urine RBC (Auto) 18 H Urine Microscopic WBC Amorphous Sediment Urine Bacteria Rare Blood Type Antibody Screen BBK History Checked 06/19/18 06/19/18 04:45 04:45 WBC 11.0 H RBC 2.92 L Hgb 9.4 L Hct 27.8 L MCV 95.2 H MCH 32.3 H MCHC 34.0 RDW 13.4 Plt Count 226 MPV 10.4 Neut % (Auto) 86.9 H Lymph % (Auto) 5.7 L [place] % (Auto) 6.3 Eos % (Auto) 0.5 Baso % (Auto) 0.6 Neut # (Auto) 9.6 H Lymph # (Auto) 0.6 L [place] # (Auto) 0.7 Eos # (Auto) 0.1 Baso # (Auto) 0.1 Neutrophils % (Manual) Lymphocytes % (Manual) Monocytes % (Manual) Platelet Estimate Large Platelets PT INR APTT pCO2 pO2 HCO3 ABG pH ABG Total CO2 ABG O2 Saturation ABG O2 Content ABG Base Excess ABG Hemoglobin ABG Carboxyhemoglobin POC ABG HHb (Measured) ABG Methemoglobin ABG O2 Capacity Hieu Test VBG pH VBG pCO2 VBG HCO3 VBG Total CO2 VBG O2 Sat (Calc) VBG Base Excess VBG Potassium A-a O2 Difference Hgb O2 Saturation Glucose Lactate Liter Flow Vent Mode FiO2 Sodium 142 Potassium 4.0 Chloride 110 H Carbon Dioxide 27 Anion Gap 9 L BUN 18 Creatinine 1.0 Est GFR ( Amer) > 60 Est GFR (Non-Af Amer) > 60 Random Glucose 117 H Calcium 7.9 L Total Bilirubin 1.3 AST 47 ALT 108 H Alkaline Phosphatase 78 Total Protein 5.1 L Albumin 2.5 L Globulin 2.6 Albumin/Globulin Ratio 0.9 L Lipase Venous Blood Potassium Urine Color Urine Clarity Urine pH Ur Specific [place] Urine Protein Urine Glucose (UA) Urine Ketones Urine Blood Urine Nitrate Urine Bilirubin Urine Urobilinogen Ur Leukocyte Esterase Urine RBC (Auto) Urine Microscopic WBC Amorphous Sediment Urine Bacteria Blood Type Antibody Screen BBK History Checked Microbiology 06/16/18 19:57 Urine,Coronel Urine Culture - Preliminary Burkholderia Cepacia Enterococcus Faecalis 06/16/18 20:27 Blood-Venous Blood Culture - Preliminary NO GROWTH AFTER 48 HOURS 06/17/18 19:30 Blood Blood Culture - Preliminary NO GROWTH AFTER 24 HOURS 06/17/18 20:10 Blood Blood Culture - Preliminary NO GROWTH AFTER 24 HOURS 06/16/18 19:57 Blood-Venous Blood Culture - Preliminary NO GROWTH AFTER 48 HOURS Assessment and Plan (1) Abdominal pain Status: Acute (2) PNA (pneumonia) Status: Acute (3) Pulmonary embolism, bilateral Status: Acute - Assessment and Plan (Free Text) Assessment: A/P- 63 year old male with multiple medical conditions including CAD s/p CABG, CVA, recent prostatectomy on 06/06/2018 admitted with Nause/vomiting, abdominal pian and sob. found to have b/l pulmonary emboli and bibasilar patchy infiltrates along with cholecystitis and UTI most likely secondary to retained coronel since his surgery. clinically better. afebrie leukocytosis trending down. urine cx- Burkhorderia and E.fecalis sens to vanco blood cx- neg x 2 Ct chest /abd reports noted. Plan- advise to start patient on IV meropnem since the Burkhodereria is sensitiive to it. continue with vanco as well to cover for e.feclais. keep trough <15. would need at least 10-14 days of Iv abx until coronel removed and Urine is cleared. GI nad surgical f/u. eval. coronel would most likely need to be replaced , however, [facility] ept. had ecent surgery adn is on lovenox for PE , the here has advised to keep it in place until patietn is seen by his urologist that performed his surgery in [facility]. PE management as per primary team. All above also d/w patient and he verbalizes full understanding of all above. Vero trimble d/w .
--- NOTE | 2018-06-19 14:19 | CP.PCM.PN ---
Subjective - Date & Time of Evaluation Date of Evaluation: 06/19/18 Time of Evaluation: 11:30 - Subjective Subjective: F/U PE No A/D, no SOB, but c/o of abdominal pain lower quadrants. Objective - Vital Signs/Intake and Output Vital Signs (last 24 hours): Temp Pulse Resp BP Pulse Ox 97.6 F 78 18 107/67 96 06/19/18 12:00 06/19/18 12:00 06/19/18 12:00 06/19/18 12:00 06/19/18 12:00 - Medications Medications: Current Medications Aspirin (Ecotrin) 81 mg PO DAILY [facility] Last Admin: 06/19/18 08:21 Dose: Not Given Atorvastatin Calcium (Lipitor) 40 mg PO DAILY [facility] Last Admin: 06/19/18 08:21 Dose: Not Given Enalapril Maleate (Vasotec) 2.5 mg PO BID [facility] Last Admin: 06/19/18 08:21 Dose: Not Given Enoxaparin Sodium (Lovenox) 70 mg SC Q12 [facility]; Protocol Last Admin: 06/19/18 08:13 Dose: 70 mg Famotidine (Pepcid) 40 mg IVP Q12 [facility] Last Admin: 06/19/18 08:14 Dose: 40 mg Folic Acid (Folic Acid) 1 mg PO DAILY [facility] Last Admin: 06/19/18 08:21 Dose: Not Given Lactated Ringer's (Lactated Ringer's) 1,000 mls @ 150 mls/hr IV .Q6H40M [facility] Last Admin: 06/19/18 08:19 Dose: 150 mls/hr Levetiracetam 500 mg/ Sodium (Chloride) 105 mls @ 210 mls/hr IVPB Q12 [facility] Last Admin: 06/19/18 08:19 Dose: 210 mls/hr Vancomycin HCl 1 gm/ Sodium (Chloride) 250 mls @ 166.667 mls/hr IVPB Q12 [facility]; Protocol Last Admin: 06/19/18 08:20 Dose: 166.667 mls/hr Meropenem 500 mg/ Sodium (Chloride) 100 mls @ 100 mls/hr IVPB Q8 [facility]; Protocol Morphine Sulfate (Morphine) 2 mg IVP Q6 PRN PRN Reason: Pain, moderate (4-7) Last Admin: 06/17/18 18:10 Dose: 2 mg Morphine Sulfate (Morphine) 4 mg IVP Q6 PRN PRN Reason: Pain, severe (8-10) Ondansetron HCl (Zofran Inj) 4 mg IVP Q6 PRN PRN Reason: Nausea/Vomiting Last Admin: 06/17/18 03:08 Dose: 4 mg Oxybutynin Chloride (Ditropan Tab) 5 mg PO TID [facility] Last Admin: 06/19/18 12:58 Dose: Not Given Tamsulosin HCl (Flomax) 0.4 mg PO DAILY [facility] Last Admin: 06/19/18 08:21 Dose: Not Given - Labs Labs: 06/19/18 04:45 06/19/18 04:45 PT 15.4 Seconds (9.8-13.1) H 06/16/18 19:57 INR 1.4 06/16/18 19:57 APTT 30.8 Seconds (25.6-37.1) 06/16/18 19:57 - Constitutional Appears: No Acute Distress, Chronically Ill - Head Exam Head Exam: NORMAL INSPECTION - Eye Exam Eye Exam: PERRL - ENT Exam ENT Exam: Normal Exam - Neck Exam Neck Exam: Normal Inspection - Respiratory Exam Respiratory Exam: Decreased Breath Sounds (at bases) - Cardiovascular Exam Cardiovascular Exam: REGULAR RHYTHM Additional comments: Mid chest old scar from CABG x2 - GI/Abdominal Exam GI & Abdominal Exam: Tenderness (R-L Lower quadrants.), Normal Bowel Sounds - Exam Additional comments: Hood catheter in place - Extremities Exam Extremities Exam: Normal Inspection - Back Exam Back Exam: NORMAL INSPECTION - Neurological Exam Neurological Exam: Awake Additional comments: O x2, forgetful, expressive aphasia. - Psychiatric Exam Additional comments: Calm - Skin Skin Exam: Normal Color, Warm Assessment and Plan (1) Pulmonary embolism, bilateral Status: Acute (2) PNA (pneumonia) Status: Acute (3) Small pleural effusion Status: Acute - Assessment and Plan (Free Text) Plan: Continue O2 NC, Lovenox, Merren, Vanco and rest of Tx.
[2018-06-19] MEDS: Meropenem 500 MG in Sodium Chloride 0.9% 100 ML IVPB SCH ×2 (15:09→16:58)
--- NOTE | 2018-06-19 23:42 | CP.PCM.PN ---
Subjective - Date & Time of Evaluation Date of Evaluation: 06/19/18 Time of Evaluation: 19:00 - Subjective Subjective: Patient without abdominal complaints. Tolerating diet. Objective - Vital Signs/Intake and Output Vital Signs (last 24 hours): Temp Pulse Resp BP Pulse Ox 98.8 F 76 18 108/70 98 06/19/18 19:32 06/19/18 21:00 06/19/18 19:32 06/19/18 19:32 06/19/18 19:32 - Medications Medications: Current Medications Aspirin (Ecotrin) 81 mg PO DAILY [facility] Last Admin: 06/19/18 08:21 Dose: Not Given Atorvastatin Calcium (Lipitor) 40 mg PO DAILY [facility] Last Admin: 06/19/18 08:21 Dose: Not Given Enalapril Maleate (Vasotec) 2.5 mg PO BID [facility] Last Admin: 06/19/18 16:58 Dose: Not Given Enoxaparin Sodium (Lovenox) 70 mg SC Q12 [facility]; Protocol Last Admin: 06/19/18 21:11 Dose: 70 mg Famotidine (Pepcid) 40 mg IVP Q12 [facility] Last Admin: 06/19/18 21:27 Dose: 40 mg Folic Acid (Folic Acid) 1 mg PO DAILY [facility] Last Admin: 06/19/18 08:21 Dose: Not Given Lactated Ringer's (Lactated Ringer's) 1,000 mls @ 150 mls/hr IV .Q6H40M [facility] Last Admin: 06/19/18 21:21 Dose: 150 mls/hr Levetiracetam 500 mg/ Sodium (Chloride) 105 mls @ 210 mls/hr IVPB Q12 [facility] Last Admin: 06/19/18 21:07 Dose: 210 mls/hr Vancomycin HCl 1 gm/ Sodium (Chloride) 250 mls @ 166.667 mls/hr IVPB Q12 [facility]; Protocol Last Admin: 06/19/18 21:08 Dose: 166.667 mls/hr Meropenem 500 mg/ Sodium (Chloride) 100 mls @ 100 mls/hr IVPB Q8 [facility]; Protocol Last Admin: 06/19/18 16:58 Dose: Not Given Morphine Sulfate (Morphine) 2 mg IVP Q6 PRN PRN Reason: Pain, moderate (4-7) Last Admin: 06/19/18 21:15 Dose: 2 mg Morphine Sulfate (Morphine) 4 mg IVP Q6 PRN PRN Reason: Pain, severe (8-10) Ondansetron HCl (Zofran Inj) 4 mg IVP Q6 PRN PRN Reason: Nausea/Vomiting Last Admin: 06/17/18 03:08 Dose: 4 mg Oxybutynin Chloride (Ditropan Tab) 5 mg PO TID [facility] Last Admin: 06/19/18 16:57 Dose: Not Given Tamsulosin HCl (Flomax) 0.4 mg PO DAILY [facility] Last Admin: 06/19/18 08:21 Dose: Not Given - Labs Labs: 06/19/18 04:45 06/19/18 04:45 PT 15.4 Seconds (9.8-13.1) H 06/16/18 19:57 INR 1.4 06/16/18 19:57 APTT 30.8 Seconds (25.6-37.1) 06/16/18 19:57 - Head Exam Head Exam: ATRAUMATIC - Eye Exam Eye Exam: Normal appearance - Neck Exam Neck Exam: Full ROM - Respiratory Exam Respiratory Exam: Clear to Ausculation Bilateral - Cardiovascular Exam Cardiovascular Exam: REGULAR RHYTHM - GI/Abdominal Exam GI & Abdominal Exam: Soft. absent: Tenderness Assessment and Plan (1) Abdominal pain Assessment & Plan: No abdominal complaints currently. Tolerating diet well. Status: Acute
[2018-06-20] MEDS: Meropenem 500 MG in Sodium Chloride 0.9% 100 ML IVPB SCH ×3 (00:04→16:16)
[2018-06-20 05:55] LABS: HEMOGLOBIN 9.7 g/dL (12.0-18.0); MEAN CELL VOLUME 94.9 fl (80.0-94.0); MEAN CORPUSCULAR HEMOGLOBIN 31.7 pg (27.0-31.0); MEAN CORPUSCULAR HGB CONC 33.4 g/dL (33.0-37.0); RBC 3.06 Mil/uL (4.40-5.90); RED CELL DISTRIBUTION WIDTH 13.5 % (11.5-14.5)
[2018-06-20 06:03] LABS: BLOOD UREA NITROGEN 12 mg/dl (9-20); CALCIUM 8.2 mg/dL (8.4-10.2); GFR NON-AFRICAN AMERICAN > 60
[2018-06-20] MEDS: Lactated Ringer's 1,000 ML IV SCH ×4 (06:27→16:18)
--- NOTE | 2018-06-20 08:21 | CP.PCM.PN ---
Subjective - Date & Time of Evaluation Date of Evaluation: 06/20/18 Time of Evaluation: 08:30 - Subjective Subjective: Patient seen and examined at bedside. Today, patient is tolerating a full diet. Reports mild pain where the coronel catheter is in place. Denies abdominal pain today. Denies nausea, vomiting, dyspnea, diarrhea, headaches, changes in vision. No overnight events. Normal sinus rhythm on tele monitor. Objective - Vital Signs/Intake and Output Vital Signs (last 24 hours): Temp Pulse Resp BP Pulse Ox 98.3 F 74 18 128/79 97 06/20/18 07:54 06/20/18 07:54 06/20/18 07:54 06/20/18 07:54 06/20/18 07:54 Intake and Output: 06/20/18 06/20/18 06:59 18:59 Intake Total 1855 Output Total 500 Balance 1355 - Medications Medications: Current Medications Aspirin (Ecotrin) 81 mg PO DAILY [facility] Last Admin: 06/19/18 08:21 Dose: Not Given Atorvastatin Calcium (Lipitor) 40 mg PO DAILY [facility] Last Admin: 06/19/18 08:21 Dose: Not Given Enalapril Maleate (Vasotec) 2.5 mg PO BID [facility] Last Admin: 06/19/18 16:58 Dose: Not Given Enoxaparin Sodium (Lovenox) 70 mg SC Q12 [facility]; Protocol Last Admin: 06/19/18 21:11 Dose: 70 mg Famotidine (Pepcid) 40 mg IVP Q12 [facility] Last Admin: 06/19/18 21:27 Dose: 40 mg Folic Acid (Folic Acid) 1 mg PO DAILY [facility] Last Admin: 06/19/18 08:21 Dose: Not Given Lactated Ringer's (Lactated Ringer's) 1,000 mls @ 150 mls/hr IV .Q6H40M [facility] Last Admin: 06/20/18 06:53 Dose: 150 mls/hr Levetiracetam 500 mg/ Sodium (Chloride) 105 mls @ 210 mls/hr IVPB Q12 [facility] Last Admin: 06/19/18 21:07 Dose: 210 mls/hr Vancomycin HCl 1 gm/ Sodium (Chloride) 250 mls @ 166.667 mls/hr IVPB Q12 [facility]; Protocol Last Admin: 06/19/18 21:08 Dose: 166.667 mls/hr Meropenem 500 mg/ Sodium (Chloride) 100 mls @ 100 mls/hr IVPB Q8 [facility]; Protocol Last Admin: 06/20/18 00:04 Dose: 100 mls/hr Morphine Sulfate (Morphine) 2 mg IVP Q6 PRN PRN Reason: Pain, moderate (4-7) Last Admin: 06/19/18 21:15 Dose: 2 mg Morphine Sulfate (Morphine) 4 mg IVP Q6 PRN PRN Reason: Pain, severe (8-10) Ondansetron HCl (Zofran Inj) 4 mg IVP Q6 PRN PRN Reason: Nausea/Vomiting Last Admin: 06/17/18 03:08 Dose: 4 mg Oxybutynin Chloride (Ditropan Tab) 5 mg PO TID [facility] Last Admin: 06/19/18 16:57 Dose: Not Given Tamsulosin HCl (Flomax) 0.4 mg PO DAILY [facility] Last Admin: 06/19/18 08:21 Dose: Not Given - Labs Labs: 06/20/18 04:55 06/20/18 04:55 PT 15.4 Seconds (9.8-13.1) H 06/16/18 19:57 INR 1.4 06/16/18 19:57 APTT 30.8 Seconds (25.6-37.1) 06/16/18 19:57 - Constitutional Appears: Non-toxic, No Acute Distress, Older Than Stated Age, Chronically Ill - Eye Exam Eye Exam: Normal appearance - ENT Exam ENT Exam: Mucous Membranes Moist - Respiratory Exam Respiratory Exam: Clear to Ausculation Bilateral, NORMAL BREATHING PATTERN. absent: Accessory Muscle Use, Chest Wall Tenderness, Decreased Breath Sounds, Prolonged Expiratory Phase, Rales, Rhonchi, Wheezes, Respiratory Distress, Stridor - Cardiovascular Exam Cardiovascular Exam: +S1, +S2 - GI/Abdominal Exam GI & Abdominal Exam: Distended, Soft, Normal Bowel Sounds. absent: Rigid, Rebound - Exam Additional comments: Coronel in place. - Extremities Exam Extremities Exam: Normal Capillary Refill, Normal Inspection. absent: Pedal Edema, Tenderness - Neurological Exam Neurological Exam: Alert, Awake, Oriented x3 - Psychiatric Exam Psychiatric exam: Normal Affect, Normal Mood - Skin Skin Exam: Dry, Intact, Normal Color, Warm Assessment and Plan - Assessment and Plan (Free Text) Assessment: 63 y/o male with PMH CABG , CVA with residual expressive aphasia, HTN,prostate CA s/p recent surgery 06/06/18 with indwelling Coronel catheter , presented with nausea, vomiting , abdominal pain and some dyspnea admitted for further management of sepsis and found to have acute cholecystitis, bilateral Pulmonary embolisms, bilateral pneumonia, and complicated UTI (Burkholdia and E. Faecalis). Patient to be discharged tomorrow to [place]. Picc line placed today 06/20/18 for antibiotic treatment. 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 Pt's urologist at [facility] was contacted and informed. Picc was placed 06/20/18 3. Cholelithiasis and acute cholecystitis CT abd showed no obstruction T.bili: normalized; LFT's trending down. GI and surgery consulted MRI: Gallbladder distension & cholithiasis/sludge in lumen, no CVD or intrahepatic biliary duct dilatation. Pancreatic duct not dilated. HIDA scan: No nuclear evidence of cystic or common bile duct obstruction Pain management with Morphine PPI and Zofran PRN Continue Hepatic diet at this time 4. Bilateral Pneumonia Continue IV antibiotics Vanco 5.Suspected UTI s/p robotic prostate surgery for prostate Ca with indwelling coronel catheter at [place] by Dr. Salazar Urine cultures: resulted Burkholdia cepacia and E.Faecalis Urology consult appreciated and case discussed . Will leave Coronel in due to high risk of bleeding Zosyn discontinued given resistance from Burkholdia cepacia Meropenem (Day 1) started as Burholdia is sensitive with a GREG of 0.5 continue Vanco (day 5) called and informed PA of Dr. Salazar about patient's condition 6. Prostate CA - s/p recent surgery 06/06/18 at [place] F/U with urologist upon discharge continue Flomax at this time 7. Hypertension stable On Low dose Enalapril 8. CVA with residual expressive aphasia Continue ASA, statin , follow BP control 9 CAD s/p CABG resume ASA, statin and BP control
[2018-06-20] MEDS: levETIRAcetam 500 MG in Sodium Chloride 0.9% 100 ML IVPB SCH ×2 (09:41→20:14)
[2018-06-20] MEDS: Enoxaparin 80 mg Syringe SC SCH ×2 (09:43→20:20)
[2018-06-20 12:36] LABS: ALB/GLOB RATIO 0.9 (1.0-2.1); ALBUMIN 2.6 g/dL (3.5-5.0); BILIRUBIN,DIRECT 0.4 mg/ml (0.0-0.4)
--- NOTE | 2018-06-20 12:54 | PN ---
DATE: 06/20/2018 TIME OF FOLLOWUP: Roughly 10:20 a.m. SUBJECTIVE: The patient is resting comfortably today in bed with the Hood catheter from his radical prostatectomy, draining mauricio urine well, on Lovenox for treatment for pulmonary embolism. The patient is also being treated with IV antibiotics for possible urosepsis. PHYSICAL EXAMINATION: VITAL SIGNS: Today, 06/20/2018, temperature is 98.3, pulse rate was 74, blood pressure 128/79, respiratory rate is 18, and O2 saturation on room air was 97%. ABDOMEN: Soft, nondistended, nontender. No CVA tenderness. No suprapubic tenderness. Hood catheter draining mauricio urine well. LABORATORY DATA: Today, 06/20/2018, shows a CBC with a WBC count of 10, hemoglobin of 9.7, and hematocrit of 29 with a platelet count of 274,000. Chem profile shows a sodium of 141, potassium 3.8, chloride 109, CO2 of 28, and BUN and creatinine 12 and 0.9 respectively with the GFR of greater than 60. Random glucose is 109 and calcium 8.2. ASSESSMENT PLAN: Plan for this patient will be eventually to discharge the patient home and provide transportation to (the patient's urologist) office in [facility] for removal of the Hood catheter post radical prostatectomy for treatment of prostate cancer. Sean Steen MD MTDD
[2018-06-20] MEDS ORDERED: Lidocaine Hydrochloride 1% 10 ML ONE (13:14)
--- NOTE | 2018-06-20 13:41 | PCM.SURG1 ---
Surgeon's Initial Post Op Note - Surgeon's Notes Surgeon: Kenn Dominguez MD Drain Cleaner: NONE Type of Anesthesia: Local Pre-Operative Diagnosis: Infection Operative Findings: US showed a patent right basilic vein Post-Operative Diagnosis: Infection Operation Performed: PIcc placement right arm. Specimen/Specimens Removed: none Estimated Blood Loss: EBL {In ML}: 2 Blood Products Given: N/A Drains Used: No Drains Post-Op Condition: Fair Date of Surgery/Procedure: 06/20/18 Time of Surgery/Procedure: 13:35
[2018-06-20] MEDS ORDERED: Lidocaine 2% Jelly (Uro-Jet) TOP ONE (16:02)
[2018-06-21] MEDS: Lactated Ringer's 1,000 ML IV SCH ×2 (00:08→06:20)
[2018-06-21] MEDS: Meropenem 500 MG in Sodium Chloride 0.9% 100 ML IVPB SCH ×2 (00:09→08:20)
[2018-06-21 04:35] VITALS: RESP 18
[2018-06-21 05:26] LABS: HEMOGLOBIN 9.2 g/dL (12.0-18.0); MEAN CELL VOLUME 95.4 fl (80.0-94.0); MEAN CORPUSCULAR HEMOGLOBIN 31.8 pg (27.0-31.0); MEAN CORPUSCULAR HGB CONC 33.4 g/dL (33.0-37.0); RBC 2.9 Mil/uL (4.40-5.90); RED CELL DISTRIBUTION WIDTH 13.5 % (11.5-14.5); WHITE BLOOD COUNT 8.2 K/uL (4.8-10.8)
[2018-06-21 05:43] LABS: BLOOD UREA NITROGEN 10 mg/dl (9-20); CALCIUM 7.9 mg/dL (8.4-10.2); GFR NON-AFRICAN AMERICAN > 60
[2018-06-21] MEDS ORDERED: Potassium Chloride 20 mEq 100 ML IVPB ONE (06:13)
[2018-06-21 07:54] VITALS: BP 143/84; PULSE 83; O2SAT 96
[2018-06-21] MEDS: levETIRAcetam 500 MG in Sodium Chloride 0.9% 100 ML IVPB SCH (08:19)
[2018-06-21] MEDS: Enoxaparin 80 mg Syringe SC SCH (08:22)
[2018-06-21 08:33] LABS: ALB/GLOB RATIO 0.9 (1.0-2.1); ALBUMIN 2.4 g/dL (3.5-5.0); ALT/SGPT 120 U/L (21-72); AST/SGOT 86 U/L (17-59)
[2018-06-21 10:26] VITALS: TEMP 97.9
--- NOTE | 2018-06-21 10:32 | CP.PCM.DIS ---
<Livier Reynoso - Last Filed: 06/21/18 13:05> Provider - Provider Date of Admission: 06/18/18 10:13 Attending physician: Valente Isidro Consults: 06/17/18 01:10 General Surgery Consult Stat Comment: Consulting Provider: Yobani Robledo Consulting Physician: Yobani Robledo Reason for Consult: acute cholecystitis, nausea/vomiting 06/17/18 01:12 Urology Consult Routine Comment: Consulting Provider: Sean Steen Consulting Physician: Sean Steen Reason for Consult: hx prostate resection on 06/06/18, has coronel place. possible urosepsis 06/17/18 07:20 Gastroenterology Consult Routine Comment: Consulting Provider: Danny Reed Consulting Physician: Danny Reed Reason for Consult: cholelithiasis 06/17/18 14:40 Infectious Disease Consult Routine Comment: Consulting Provider: Samara Dallas Consulting Physician: Samara Dallas Reason for Consult: sepsis with UTI, Pneumonai,cholecystitis 06/17/18 14:51 Pulmonology Consult Routine Comment: Consulting Provider: Jose White Consulting Physician: Jose White Reason for Consult: bilateral PE Time Spent in preparation of Discharge (in minutes): 30 Diagnosis - Discharge Diagnosis (1) Pulmonary embolism, bilateral Status: Acute Priority: High Comment: Continued to be hemodynamically stable, No respiratory distress. Doppler US of LE showed no DVT. Continue therapeutic Lovenox (2) Cholelithiasis Status: Acute Comment: Cholecystitis ruled out by HIDA scan. bilirubin & LFT's - continued to trend down. MRCP showed no choledocholithiasis. Pain was well controlled. PPI and Zofran PRN (3) Sepsis secondary to UTI Status: Acute Comment: most likely multifactorial - UTI and Pneumonia. Cholecystitis ruled out by HIDA scan. Blood cx with no growth so far and urine cx positive for Enteroccocus faecalis and Burkholderia Cepacia. continue Vanco and Meropenem IV (for ten days) until Coronel is removed. Urology: Due to high risk of bleeding will leave Coronel catheter in place. Called and informed patient's urologist at [facility] .Patient will need to follow up with his urologist for Coronel removal (4) UTI (urinary tract infection) Status: Acute Comment: Recent robotic prostate surgery for prostate Ca with indwelling coronel catheter at [place] by Dr. Salazar on 06/06. Urology consult appreciated and case discussed . Will leave Coronel in due to high risk of bleeding. urine cultures positive for Enterococcus faecalis and Burkholderia cepacia. Continue Meropenem and vanco for IV at least for 10 more days (5) Prostate cancer Status: Chronic Comment: s/p recent surgery 06/06/18 at [place]. will need to follow up with his urologist upon discharge. continue Flomax and Ditropan (6) Hypertension Status: Chronic Comment: On Low dose Enalapril. Controlled (7) History of CVA with residual deficit Status: Chronic Comment: Continue ASA, statin , BP control. on Keppra for seizure prevention. Discharge to [facility] (8) CAD (coronary artery disease) Status: Chronic Comment: CAD s/p CABG. continue ASA, statin and BP control Hospital Course - Lab Results Lab Results: Micro Results 06/16/18 20:27 Blood-Venous Blood Culture - Preliminary NO GROWTH AFTER 4 DAYS 06/17/18 19:30 Blood Blood Culture - Preliminary NO GROWTH AFTER 3 DAYS 06/17/18 20:10 Blood Blood Culture - Preliminary NO GROWTH AFTER 3 DAYS 06/16/18 19:57 Blood-Venous Blood Culture - Preliminary NO GROWTH AFTER 4 DAYS 06/16/18 19:57 Urine,Coronel Urine Culture - Final Burkholderia Cepacia Enterococcus Faecalis 06/17/18 17:46 Urine,Coronel Urine Culture - Final Enterococcus Faecalis Most Recent Lab Values WBC 8.2 K/uL (4.8-10.8) 06/21/18 04:20 RBC 2.90 Mil/uL (4.40-5.90) L 06/21/18 04:20 Hgb 9.2 g/dL (12.0-18.0) L 06/21/18 04:20 Hct 27.7 % (35.0-51.0) L 06/21/18 04:20 MCV 95.4 fl (80.0-94.0) H 06/21/18 04:20 MCH 31.8 pg (27.0-31.0) H 06/21/18 04:20 MCHC 33.4 g/dL (33.0-37.0) 06/21/18 04:20 RDW 13.5 % (11.5-14.5) 06/21/18 04:20 Plt Count 316 K/uL (130-400) 06/21/18 04:20 MPV 10.4 fl (7.2-11.7) 06/19/18 04:45 Neut % (Auto) 86.9 % (50.0-75.0) H 06/19/18 04:45 Lymph % (Auto) 5.7 % (20.0-40.0) L 06/19/18 04:45 [place] % (Auto) 6.3 % (0.0-10.0) 06/19/18 04:45 Eos % (Auto) 0.5 % (0.0-4.0) 06/19/18 04:45 Baso % (Auto) 0.6 % (0.0-2.0) 06/19/18 04:45 Neut # (Auto) 9.6 K/uL (1.8-7.0) H 06/19/18 04:45 Lymph # (Auto) 0.6 K/uL (1.0-4.3) L 06/19/18 04:45 Pickett # (Auto) 0.7 K/uL (0.0-0.8) 06/19/18 04:45 Eos # (Auto) 0.1 K/uL (0.0-0.7) 06/19/18 04:45 Baso # (Auto) 0.1 K/uL (0.0-0.2) 06/19/18 04:45 Neutrophils % (Manual) 90 % (42-75) H 06/16/18 19:57 Lymphocytes % (Manual) 5 % (20-50) L 06/16/18 19:57 Monocytes % (Manual) 5 % (0-10) 06/16/18 19:57 Platelet Estimate Normal (NORMAL) 06/16/18 19:57 Large Platelets Present 06/16/18 19:57 PT 15.4 Seconds (9.8-13.1) H 06/16/18 19:57 INR 1.4 06/16/18 19:57 APTT 30.8 Seconds (25.6-37.1) 06/16/18 19:57 pCO2 34 mm/Hg (35-45) L 06/17/18 15:41 pO2 131 mm/Hg (80-100) H 06/17/18 15:41 HCO3 26.5 mmol/L (21-28) 06/17/18 15:41 ABG pH 7.48 (7.35-7.45) H 06/17/18 15:41 ABG Total CO2 26.3 mmol/L (22-28) 06/17/18 15:41 ABG O2 Saturation 99.7 % (95-98) H 06/17/18 15:41 ABG O2 Content 14.3 ML/dL (15-23) L 06/17/18 15:41 ABG Base Excess 2.0 mmol/L (-2.0-3.0) 06/17/18 15:41 ABG Hemoglobin 10.4 g/dL (11.7-17.4) L 06/17/18 15:41 ABG Carboxyhemoglobin 1.7 % (0.5-1.5) H 06/17/18 15:41 POC ABG HHb (Measured) 0.3 % (0.0-5.0) 06/17/18 15:41 ABG Methemoglobin 1.6 % (0.0-3.0) 06/17/18 15:41 ABG O2 Capacity 14.3 mL/dL (16-24) L 06/17/18 15:41 Hieu Test Yes 06/17/18 15:41 VBG pH 7.49 (7.32-7.43) H 06/16/18 20:09 VBG pCO2 33 mmHg (40-60) L 06/16/18 20:09 VBG HCO3 25.7 mmol/L 06/16/18 20:09 VBG Total CO2 26.1 mmol/L (22-28) 06/16/18 20:09 VBG O2 Sat (Calc) 58.6 % (40-65) 06/16/18 20:09 VBG Base Excess 2.2 mmol/L (0.0-2.0) H 06/16/18 20:09 VBG Potassium 4.4 mmol/L (3.6-5.2) 06/16/18 20:09 A-a O2 Difference 55.0 mm/Hg 06/17/18 15:41 Hgb O2 Saturation 96.4 % (95.0-98.0) 06/17/18 15:41 Sodium 142.0 mmol/L (132-148) 06/16/18 20:09 Chloride 108.0 mmol/L (98-107) H 06/16/18 20:09 Glucose 131 mg/dL (75-110) H 06/16/18 20:09 Lactate 1.7 mmol/L (0.7-2.1) 06/16/18 20:09 Liter Flow 3 06/17/18 15:41 Vent Mode Nc 06/17/18 15:41 FiO2 32.0 % 06/17/18 15:41 Sodium 140 mmol/l (132-148) 06/21/18 04:20 Potassium 3.4 MMOL/L (3.6-5.0) L 06/21/18 04:20 Chloride 109 mmol/L (98-107) H 06/21/18 04:20 Carbon Dioxide 27 mmol/L (22-30) 06/21/18 04:20 Anion Gap 7 (10-20) L 06/21/18 04:20 BUN 10 mg/dl (9-20) 06/21/18 04:20 Creatinine 0.8 mg/dl (0.8-1.5) 06/21/18 04:20 Est GFR ( Amer) > 60 06/21/18 04:20 Est GFR (Non-Af Amer) > 60 06/21/18 04:20 Random Glucose 112 mg/dL (75-110) H 06/21/18 04:20 Calcium 7.9 mg/dL (8.4-10.2) L 06/21/18 04:20 Phosphorus 2.7 mg/dl (2.5-4.5) 06/21/18 04:20 Magnesium 2.2 MG/DL (1.6-2.3) 06/21/18 04:20 Total Bilirubin 0.6 mg/dl (0.2-1.3) 06/21/18 04:20 Direct Bilirubin 0.4 mg/ml (0.0-0.4) 06/20/18 07:00 AST 86 U/L (17-59) H D 06/21/18 04:20 ALT 120 U/L (21-72) H 06/21/18 04:20 Alkaline Phosphatase 78 U/L (38-126) 06/21/18 04:20 Total Protein 5.0 G/DL (6.3-8.2) L 06/21/18 04:20 Albumin 2.4 g/dL (3.5-5.0) L 06/21/18 04:20 Globulin 2.6 gm/dL (2.2-3.9) 06/21/18 04:20 Albumin/Globulin Ratio 0.9 (1.0-2.1) L 06/21/18 04:20 Lipase 125 U/L (23-300) 06/16/18 19:57 Venous Blood Potassium 4.4 mmol/L (3.6-5.2) 06/16/18 20:09 Urine Color Yellow (YELLOW) 06/17/18 17:46 Urine Clarity Slighty-cloudy (Clear) 06/17/18 17:46 Urine pH 6.0 (5.0-8.0) 06/17/18 17:46 Ur Specific [place] 1.010 (1.003-1.030) 06/17/18 17:46 Urine Protein 30 mg/dL (NEGATIVE) 06/17/18 17:46 Urine Glucose (UA) Neg mg/dL (NEGATIVE) 06/17/18 17:46 Urine Ketones Negative mg/dL (NEGATIVE) 06/17/18 17:46 Urine Blood Moderate (NEGATIVE) 06/17/18 17:46 Urine Nitrate Negative (NEGATIVE) 06/17/18 17:46 Urine Bilirubin Negative (NEGATIVE) 06/17/18 17:46 Urine Urobilinogen 0.2-1.0 mg/dL (0.2-1.0) 06/17/18 17:46 Ur Leukocyte Esterase Neg Cliff/uL (Negative) 06/17/18 17:46 Urine RBC (Auto) 18 /hpf (0-3) H 06/17/18 17:46 Urine Microscopic WBC 42 /hpf (0-5) H 06/16/18 19:57 Amorphous Sediment Rare /ul (<OCC) H 06/16/18 19:57 Urine Bacteria Rare (<OCC) 06/17/18 17:46 Random Vancomycin 23.3 ug/mL 06/19/18 12:30 Blood Type A POSITIVE 06/16/18 19:57 Antibody Screen Negative 06/16/18 19:57 BBK History Checked Patient has bt 06/16/18 19:57 - Hospital Course Hospital Course: 63 yo male with history of CABG , CVA with residual expressive aphasia, HTN,prostate CA s/p recent surgery 06/06/18 with indwelling Coronel catheter originally presented with nausea, vomiting , abdominal pain and some dyspnea, found to be tachycardic ,with leukocytosis and imaging showing possible cholecystitis, UA showing possible UTI and CTA showing extensive PE and pneumonia. Admitted for Sepsis secondary to UTI, Pneumonia and PE. Consults: GI , Surgery, Urology, Pulmonary and ID CTA chest :Extensive bilateral pulmonary emboli extending from the distal main bilateral pulmonary arteries into nearly all segmental and subsegmental branches. Patient was started on Lovenox therapeutic dose for PE and IV antibiotics (Zosyn and Vanco) for Pneumonia and UTI. Urine cultures returned - E. Faecalis and Burholdia (resistant to zosyn). Patient's antibiotic regimen was then switched to Meropenem and Vancomycin. (continue for 10 more days) HIDA scan: no acute cholecystitis Patient continued to be hemodynamically stable. At this time, patient discharge to [facility] and continue IV Meropenem and Vancomycin. Coronel Cathether: Urology was contacted and given safety and bleeding risk along with recent prostatectomy and is on therapeutic lovenox, Coronel was not removed during admission. Patient will follow up with Dr. Salazar, his urologist. Discharge Exam - Head Exam Head Exam: NORMAL INSPECTION - Eye Exam Eye Exam: Normal appearance - ENT Exam ENT Exam: Mucous Membranes Moist - Neck Exam Neck exam: Normal Inspection - Respiratory Exam Respiratory Exam: Clear to PA & Lateral, NORMAL BREATHING PATTERN, UNREMARKABLE - Cardiovascular Exam Cardiovascular Exam: +S1, +S2 - GI/Abdominal Exam GI & Abdominal Exam: Distended, Normal Bowel Sounds, Soft, Unremarkable. absent: Firm, Guarding, Rebound, Rigid Additional comments: multiple laparoscopic scars present on abdomen. - Extremities Exam Extremities exam: normal capillary refill, normal inspection - Neurological Exam Neurological exam: Alert Additional comments: expressive aphasia secondary to previous CVA - Psychiatric Exam Psychiatric exam: Normal Affect, Normal Mood - Skin Skin Exam: Dry, Intact, Normal Color, Warm Discharge Plan - Discharge Medications Prescriptions: levETIRAcetam [Keppra] 500 mg IV Q12 #1 vial MEROPENEM 500 MG in NS [Merrem IV 500 MG/NS 50 ML] 500 mg IV Q8H 10 Days bag Vancomycin 1 GM [Vancomycin 1GM in Normal Saline Addvantage] 1 gm IVPB Q12H 10 Days bag - Follow Up Plan Condition: GOOD Disposition: HOME/ ROUTINE Patient education suggested?: Yes Instructions: Pneumonia, Adult (DC), Gallstones (DC), Acute Abdominal Pain (DC), Acute Abdominal Pain (GEN) Additional Instructions: Coronel catheter ONLY to be removed by Dr. Salazar, [place]. Please coordinate care. ff up with Dr Marie gutierrez appt with Dr Prasanth gutierrez Referrals: Valdez Espinosa MD [Staff Provider] - Padilla Vieira MD [Medical Doctor] - <Annika Mcpherson - Last Filed: 06/21/18 16:20> Provider - Provider Date of Admission: 06/18/18 10:13 Attending physician: Valente Isidro Consults: 06/17/18 01:10 General Surgery Consult Stat Comment: Consulting Provider: Yobani Robledo Consulting Physician: Yobani Robledo Reason for Consult: acute cholecystitis, nausea/vomiting 06/17/18 01:12 Urology Consult Routine Comment: Consulting Provider: Sean Steen Consulting Physician: Sean Steen Reason for Consult: hx prostate resection on 06/06/18, has coronel place. possible urosepsis 06/17/18 07:20 Gastroenterology Consult Routine Comment: Consulting Provider: Danny Reed Consulting Physician: Danny Reed Reason for Consult: cholelithiasis 06/17/18 14:40 Infectious Disease Consult Routine Comment: Consulting Provider: Samara Dallas Consulting Physician: Samara Dallas Reason for Consult: sepsis with UTI, Pneumonai,cholecystitis 06/17/18 14:51 Pulmonology Consult Routine Comment: Consulting Provider: Jose White Consulting Physician: Jose White Reason for Consult: bilateral PE Hospital Course - Lab Results Lab Results: Micro Results 06/16/18 20:27 Blood-Venous Blood Culture - Preliminary NO GROWTH AFTER 4 DAYS 06/17/18 19:30 Blood Blood Culture - Preliminary NO GROWTH AFTER 3 DAYS 06/17/18 20:10 Blood Blood Culture - Preliminary NO GROWTH AFTER 3 DAYS 06/16/18 19:57 Blood-Venous Blood Culture - Preliminary NO GROWTH AFTER 4 DAYS 06/16/18 19:57 Urine,Coronel Urine Culture - Final Burkholderia Cepacia Enterococcus Faecalis 06/17/18 17:46 Urine,Coronel Urine Culture - Final Enterococcus Faecalis Most Recent Lab Values WBC 8.2 K/uL (4.8-10.8) 06/21/18 04:20 RBC 2.90 Mil/uL (4.40-5.90) L 06/21/18 04:20 Hgb 9.2 g/dL (12.0-18.0) L 06/21/18 04:20 Hct 27.7 % (35.0-51.0) L 06/21/18 04:20 MCV 95.4 fl (80.0-94.0) H 06/21/18 04:20 MCH 31.8 pg (27.0-31.0) H 06/21/18 04:20 MCHC 33.4 g/dL (33.0-37.0) 06/21/18 04:20 RDW 13.5 % (11.5-14.5) 06/21/18 04:20 Plt Count 316 K/uL (130-400) 06/21/18 04:20 MPV 10.4 fl (7.2-11.7) 06/19/18 04:45 Neut % (Auto) 86.9 % (50.0-75.0) H 06/19/18 04:45 Lymph % (Auto) 5.7 % (20.0-40.0) L 06/19/18 04:45 [place] % (Auto) 6.3 % (0.0-10.0) 06/19/18 04:45 Eos % (Auto) 0.5 % (0.0-4.0) 06/19/18 04:45 Baso % (Auto) 0.6 % (0.0-2.0) 06/19/18 04:45 Neut # (Auto) 9.6 K/uL (1.8-7.0) H 06/19/18 04:45 Lymph # (Auto) 0.6 K/uL (1.0-4.3) L 06/19/18 04:45 [place] # (Auto) 0.7 K/uL (0.0-0.8) 06/19/18 04:45 Eos # (Auto) 0.1 K/uL (0.0-0.7) 06/19/18 04:45 Baso # (Auto) 0.1 K/uL (0.0-0.2) 06/19/18 04:45 Neutrophils % (Manual) 90 % (42-75) H 06/16/18 19:57 Lymphocytes % (Manual) 5 % (20-50) L 06/16/18 19:57 Monocytes % (Manual) 5 % (0-10) 06/16/18 19:57 Platelet Estimate Normal (NORMAL) 06/16/18 19:57 Large Platelets Present 06/16/18 19:57 PT 15.4 Seconds (9.8-13.1) H 06/16/18 19:57 INR 1.4 06/16/18 19:57 APTT 30.8 Seconds (25.6-37.1) 06/16/18 19:57 pCO2 34 mm/Hg (35-45) L 06/17/18 15:41 pO2 131 mm/Hg (80-100) H 06/17/18 15:41 HCO3 26.5 mmol/L (21-28) 06/17/18 15:41 ABG pH 7.48 (7.35-7.45) H 06/17/18 15:41 ABG Total CO2 26.3 mmol/L (22-28) 06/17/18 15:41 ABG O2 Saturation 99.7 % (95-98) H 06/17/18 15:41 ABG O2 Content 14.3 ML/dL (15-23) L 06/17/18 15:41 ABG Base Excess 2.0 mmol/L (-2.0-3.0) 06/17/18 15:41 ABG Hemoglobin 10.4 g/dL (11.7-17.4) L 06/17/18 15:41 ABG Carboxyhemoglobin 1.7 % (0.5-1.5) H 06/17/18 15:41 POC ABG HHb (Measured) 0.3 % (0.0-5.0) 06/17/18 15:41 ABG Methemoglobin 1.6 % (0.0-3.0) 06/17/18 15:41 ABG O2 Capacity 14.3 mL/dL (16-24) L 06/17/18 15:41 Hieu Test Yes 06/17/18 15:41 VBG pH 7.49 (7.32-7.43) H 06/16/18 20:09 VBG pCO2 33 mmHg (40-60) L 06/16/18 20:09 VBG HCO3 25.7 mmol/L 06/16/18 20:09 VBG Total CO2 26.1 mmol/L (22-28) 06/16/18 20:09 VBG O2 Sat (Calc) 58.6 % (40-65) 06/16/18 20:09 VBG Base Excess 2.2 mmol/L (0.0-2.0) H 06/16/18 20:09 VBG Potassium 4.4 mmol/L (3.6-5.2) 06/16/18 20:09 A-a O2 Difference 55.0 mm/Hg 06/17/18 15:41 Hgb O2 Saturation 96.4 % (95.0-98.0) 06/17/18 15:41 Sodium 142.0 mmol/L (132-148) 06/16/18 20:09 Chloride 108.0 mmol/L (98-107) H 06/16/18 20:09 Glucose 131 mg/dL (75-110) H 06/16/18 20:09 Lactate 1.7 mmol/L (0.7-2.1) 06/16/18 20:09 Liter Flow 3 06/17/18 15:41 Vent Mode Nc 06/17/18 15:41 FiO2 32.0 % 06/17/18 15:41 Sodium 140 mmol/l (132-148) 06/21/18 04:20 Potassium 3.4 MMOL/L (3.6-5.0) L 06/21/18 04:20 Chloride 109 mmol/L (98-107) H 06/21/18 04:20 Carbon Dioxide 27 mmol/L (22-30) 06/21/18 04:20 Anion Gap 7 (10-20) L 06/21/18 04:20 BUN 10 mg/dl (9-20) 06/21/18 04:20 Creatinine 0.8 mg/dl (0.8-1.5) 06/21/18 04:20 Est GFR ( Amer) > 60 06/21/18 04:20 Est GFR (Non-Af Amer) > 60 06/21/18 04:20 Random Glucose 112 mg/dL (75-110) H 06/21/18 04:20 Calcium 7.9 mg/dL (8.4-10.2) L 06/21/18 04:20 Phosphorus 2.7 mg/dl (2.5-4.5) 06/21/18 04:20 Magnesium 2.2 MG/DL (1.6-2.3) 06/21/18 04:20 Total Bilirubin 0.6 mg/dl (0.2-1.3) 06/21/18 04:20 Direct Bilirubin 0.4 mg/ml (0.0-0.4) 06/20/18 07:00 AST 86 U/L (17-59) H D 06/21/18 04:20 ALT 120 U/L (21-72) H 06/21/18 04:20 Alkaline Phosphatase 78 U/L (38-126) 06/21/18 04:20 Total Protein 5.0 G/DL (6.3-8.2) L 06/21/18 04:20 Albumin 2.4 g/dL (3.5-5.0) L 06/21/18 04:20 Globulin 2.6 gm/dL (2.2-3.9) 06/21/18 04:20 Albumin/Globulin Ratio 0.9 (1.0-2.1) L 06/21/18 04:20 Lipase 125 U/L (23-300) 06/16/18 19:57 Venous Blood Potassium 4.4 mmol/L (3.6-5.2) 06/16/18 20:09 Urine Color Yellow (YELLOW) 06/17/18 17:46 Urine Clarity Slighty-cloudy (Clear) 06/17/18 17:46 Urine pH 6.0 (5.0-8.0) 06/17/18 17:46 Ur Specific [place] 1.010 (1.003-1.030) 06/17/18 17:46 Urine Protein 30 mg/dL (NEGATIVE) 06/17/18 17:46 Urine Glucose (UA) Neg mg/dL (NEGATIVE) 06/17/18 17:46 Urine Ketones Negative mg/dL (NEGATIVE) 06/17/18 17:46 Urine Blood Moderate (NEGATIVE) 06/17/18 17:46 Urine Nitrate Negative (NEGATIVE) 06/17/18 17:46 Urine Bilirubin Negative (NEGATIVE) 06/17/18 17:46 Urine Urobilinogen 0.2-1.0 mg/dL (0.2-1.0) 06/17/18 17:46 Ur Leukocyte Esterase Neg [place]/uL (Negative) 06/17/18 17:46 Urine RBC (Auto) 18 /hpf (0-3) H 06/17/18 17:46 Urine Microscopic WBC 42 /hpf (0-5) H 06/16/18 19:57 Amorphous Sediment Rare /ul (<OCC) H 06/16/18 19:57 Urine Bacteria Rare (<OCC) 06/17/18 17:46 Vancomycin Trough 6.8 ug/mL (5.0-10.0) 06/21/18 12:48 Random Vancomycin 23.3 ug/mL 06/19/18 12:30 Blood Type A POSITIVE 06/16/18 19:57 Antibody Screen Negative 06/16/18 19:57 BBK History Checked Patient has bt 06/16/18 19:57 Attending/Attestation - Attestation I have personally seen and examined this patient.: Yes I have fully participated in the care of the patient.: Yes I have reviewed all pertinent clinical information, including history, physical exam and plan: Yes Notes (Text): 1. Pulmonary Embolism - cont Lovenox 1mg/kg SQ q 12 2. Sepsis due to UTI and Pneumonia cont IV Meropenem and Vanco x 10 days as rec by ID - monitor Crea and Vanco trough 3. Cholelithiasis, Cholecystitis ruled out 4. Prostate CA s/p recent surgery keep Coronel cath until instructed by pt's Urologist from [facility] - Dr Salazar to d/c. ff up with Dr Marie gutierrez 5. Hx of CVA with residual Expressive Aphasia Pt able to eat and tolerate Regular diet with thins ( consumes 75% - 100% of food ) however he states unable to take pills even when crushed since he was in [facility] ( would throw up PO meds) , meds being given as IV cont Keppra 500mg IV q 12
--- NOTE | 2018-06-21 12:48 | VASCULAR ---
PROCEDURE: Date of procedure: 06/20/2018 Procedure: 1. Placement of a right arm PICC with ultrasound and fluoroscopic guidance, CPT 14699 2. PICC tip confirmation with spot radiograph and is in the superior vena cava Medications: 1 percent lidocaine Total Fluoro time: 5.3 Seconds Radiation: 0.63 MGy EBL: 2 cc HISTORY: Infection requiring long-term IV antibiotics TECHNIQUE: Following informed consent and procedure time-out, the patient was placed supine on the interventional table and the right arm prepped and draped in the usual sterile fashion. Ultrasound showed a patent and compressible right basilic vein. After the skin was anesthetized with lidocaine, the basilic vein was accessed with micro micropuncture technique using ultrasound guidance. A guidewire was then advanced under fluoroscopic guidance into the superior vena cava. An image documenting ultrasound guidance for vascular access was permanently saved. The length of the single-lumen 4 [place] PICC was trimmed to 40 centimeters and advanced through a peel-away sheath. The PICC was position with tip of PICC confirm a spot radiograph the superior vena cava. The PICC was secured to the patient's skin. The PICC was flushed. A biopatch and sterile dressing was applied. IMPRESSION: Placement of a single-lumen 4 [place] PICC trimmed to 40 centimeters via right basilic vein. The tip of the PICC is confirmed with spot radiograph and is in the superior vena cava.
== END 2018-06-21 13:49 | DRG 871 ==
LOC: H.ER 18:45 → H.ERHOLD 23:12 → H.TEL 06-17 01:56 → OBSVTOIN 06-18 10:13
PROVIDERS: ADMIT Internal Medicine; ATTEND Internal Medicine
PROC: 02HV33Z Insertion of Infusion Device into Superior Vena Cava, Percutaneous Approach (ICD-10-PCS; principal; 2018-06-19)
PROC: B518ZZA Fluoroscopy of Superior Vena Cava, Guidance (ICD-10-PCS; 2018-06-19)
PROC: B548ZZA Ultrasonography of Superior Vena Cava, Guidance (ICD-10-PCS; 2018-06-19)
PROC: 3E04329 Introduction of Other Anti-infective into Central Vein, Percutaneous Approach (ICD-10-PCS; 2018-06-19)
DX: A41.9 Sepsis, unspecified organism (principal); I26.99 Other pulmonary embolism without acute cor pulmonale; J18.9 Pneumonia, unspecified organism; N39.0 Urinary tract infection, site not specified; K80.00 Calculus of gallbladder with acute cholecystitis without obstruction; J90 Pleural effusion, not elsewhere classified; B95.2 Enterococcus as the cause of diseases classified elsewhere; Z16.24 Resistance to multiple antibiotics; I69.320 Aphasia following cerebral infarction; K70.31 Alcoholic cirrhosis of liver with ascites; I25.10 Atherosclerotic heart disease of native coronary artery without angina pectoris; I12.9 Hypertensive chronic kidney disease with stage 1 through stage 4 chronic kidney disease, or unspecified chronic kidney disease; N18.9 Chronic kidney disease, unspecified; Z98.890 Other specified postprocedural states; N40.0 Benign prostatic hyperplasia without lower urinary tract symptoms; E78.5 Hyperlipidemia, unspecified; E78.00 Pure hypercholesterolemia, unspecified; Z85.46 Personal history of malignant neoplasm of prostate; Z95.1 Presence of aortocoronary bypass graft; Z90.79 Acquired absence of other genital organ(s); Z87.442 Personal history of urinary calculi; Z79.82 Long term (current) use of aspirin; Z87.891 Personal history of nicotine dependence